=== PATIENT | female | born 1935 | race Caucasian/White ===

== ENCOUNTER 2017-07-13 07:24 | Day surgery (SDC) | payer MEDICARE, SELFPAY ==
[2017-07-13] VITALS (7 sets, daily range): BP systolic 101–148; BP diastolic 67–98; PULSE 70–87; RESP 16–20; TEMP 36.1–36.3; O2SAT 94–99; BMI 21.4
--- NOTE | 2017-07-13 09:04 | PCM.OPRPT ---
Problem List (1) Screening for intestinal cancer Status: Acute Report of Operation Date of Procedure: 07/13/17 Pre-Operative Diagnosis: Screening for intestinal cancer Post-Operative Diagnosis: Patent colorectal anastomosis. Minimal sigmoid diverticulosis Surgery/Procedure Performed:: Colonoscopy Description of Surgical Findings:: Timeout and informed consent was obtained. 81-year-old female was taken to the endoscopy suite. She was placed in a left lateral decubitus position. Throughout the procedure she received a total of 75 mg Demerol and 2.5 mg of Versed is intravenous sedation. Digital rectal exam performed. Normal anal tone. No mass lesions. Flexible colonoscope inserted the rectum and advanced through a somewhat tortuous left colon. The scope was then readily advanced through the transverse colon and isolate into the ascending colon and cecum. Bowel prep was good. There was still some liquid stool throughout the colon. This could be aspirated free. The cecum ileocecal valve was nicely inspected. The scope was carefully withdrawn from the ascending transverse descending and sigmoid colon. Some minimal diverticulosis of the sigmoid identified. No evidence of any acute inflammatory change. The patent colorectal anastomosis was noted and was noted to be widely patent. Some mild hemorrhoidal changes. No active bleeding. Excess fluid and air was aspirated free the procedure was completed with the patient tolerating it well. Impression Patent colorectal anastomosis. Minimal sigmoid diverticulosis. Some mild internal hemorrhoids. No evidence for active disease. Previous colonoscopy was 2006. Next colonoscopy for screening purposes in 10 years. Cc: Dr. Baldwin Medications were given at 0848. The procedure was initiated at 0850. The cecum was reached at 0854. The procedure was completed at 0900. Johnnie Diaz M.D., F.A.C.S. Type of Anesthesia:: IV Sedation
== END 2017-07-13 10:05 | disposition home or self-care (01) ==
LOC: EN 07:25 → AC 07:28
PROVIDERS: Family Provider Internal Medicine; PCP Internal Medicine; Visit Provider Surgery
PROC: 0DJD8ZZ Inspection of Lower Intestinal Tract, Via Natural or Artificial Opening Endoscopic (ICD-10-PCS; CPT 45378; principal; 2017-07-13 08:25)
DX: Z12.11 Encounter for screening for malignant neoplasm of colon (principal); K57.30 Diverticulosis of large intestine without perforation or abscess without bleeding; K43.2 Incisional hernia without obstruction or gangrene; K64.8 Other hemorrhoids; Z79.899 Other long term (current) drug therapy; Z78.0 Asymptomatic menopausal state; Z87.19 Personal history of other diseases of the digestive system; Z87.891 Personal history of nicotine dependence; Z90.49 Acquired absence of other specified parts of digestive tract; Z90.710 Acquired absence of both cervix and uterus
CPT/HCPCS: G0121; J7120

== ENCOUNTER 2017-07-25 12:14 | Inpatient (IN) | payer MEDICARE, SELFPAY ==
--- NOTE | 2017-07-24 10:04 | EKG12_ITS ---
Test Reason : PRE OP Blood Pressure : / mmHG Vent. Rate : 066 BPM Atrial Rate : 066 BPM P-R Int : 128 ms QRS Dur : 090 ms QT Int : 374 ms P-R-T Axes : 054 -38 -55 degrees QTc Int : 392 ms Normal sinus rhythm Left axis deviation ST & T wave abnormality, consider anterior ischemia Abnormal ECG Confirmed by BRODERICK MCCLOUD, ELINA ([id number]), design editor JOSHUA DAVE ([id number]) on 07/27/2017 1:05:53 PM Referred By: Johnnie Diaz Confirmed By:ELINA VILLAFANA MD
[2017-07-24 10:33] LABS: Hematocrit 45.3 % (37-47); Hemoglobin 15.7 g/dl (12.0-15.0); Mean Corp Hgb Conc 34.7 g/gl (32-36); Mean Corpuscular Volume 92.3 fL (81-99); Mean Platelet Vol. 9.6 fl (6.2-12.0); Platelet Count 243 K/mm3 (150-450); RBC Distribution Width SD 42.9 fl (35.1-43.9); Red Blood Count 4.91 M/mm3 (4.2-5.4); White Blood Count 8.8 K/mm3 (4.4-11.0)
[2017-07-24 10:36] LABS: Scan Indicated on CBC? Y/N NO
[2017-07-24 10:41] LABS: Prothrombin Time (Protime)PT. 12.7 SECONDS (11.7-14.9)
[2017-07-24 10:42] LABS: Partial Thromboplast Time 35.1 Seconds (24.1-36.2)
[2017-07-24 11:00] LABS: AST(SGOT) 22 U/L (15-37); Alanine Aminotransfer ALT/SGPT 30 U/L (13-56); Albumin, Serum 4.1 g/dL (3.2-5.0); Alkaline Phosphatase 99 U/L (45-117); Anion Gap 7 (5-15); BUN 12 mg/dL (7-18); BUN/Creat Ratio 13.9 RATIO (10-20); Bilirubin, Direct 0.13 mg/dL (0.00-0.30); Calcium,Total 9.2 mg/dL (8.5-10.1); Chloride 109 mmol/L (98-107); Creatinine, Serum 0.86 mg/dL (0.55-1.02); EST Glomerular Filtration Rate 67 mL/min (>60); Est Glom Filt Rate - Afr Amer 81 mL/min (>60); Globulin 3.5 g/dL (2.2-4.2); Glucose 86 mg/dL (74-106); Potassium 4.1 mmol/L (3.5-5.1); Protein, Total 7.6 g/dL (6.4-8.2); Sodium Level 141 mmol/L (136-145)
[2017-07-25] VITALS (10 sets, daily range): BP systolic 130–169; BP diastolic 78–95; PULSE 58–74; RESP 14–18; TEMP 35.9–37.2; O2SAT 95–100; BMI 20.8
--- NOTE | 2017-07-25 08:55 | HERN_PTH ---
PATIENT: STEPHEN PETER LOC: MS2 U#:[id number] AGE/SX: 81/F ROOM: [facility] [place] RE07/26/[address]: Dr. Johnnie Diaz MD : [id number] BED: 1 DIS: 07/27/2017 SPEC #: [id number] RECD: 07/25/17 13:00 STATUS: GIDEON JAE #: [id number] ELOINA: 07/25/17 08:[address]: Johnnie Diaz DEPT: SURGICAL PATHOLOGY RECD BY: Joel Jolley ENTERED: 07/25/17 13:31 SP TYPE: Hernia OTHR DR: Dr. Deena Baldwin MD Tissues: HERNIA Procedures: Surgery Specimen Level II HEADER OPERATION: Complex hybrid approach ventral/incisional hernia repair PRE-OP DIAGNOSIS: Incisional hernia without gangrene or obstruction TISSUE SUBMITTED: Hernia sac MICROSCOPIC DIAGNOSIS Incisional hernia sac, herniorrhaphy: Fibrosis and minimal chronic inflammation. AM:varinder 07/26/17 MICROSCOPIC DESCRIPTION Slides are reviewed. GROSS DESCRIPTION Received in fixative is one container labeled with the patient's name and designated hernia sac. The specimen consists of two pieces of fibroadipose tissue measuring in aggregate 6 x 6 x 2 cm. No mass lesion is identified. Supervisor [employer] sections are submitted in one cassette. / SJ:varinder 07/25/17 TC:5 CPT: 28074
[2017-07-25] MEDS: Cefazolin 2 GM in 0.9% Normal Saline 100 ML IV (09:39)
[2017-07-25] MEDS: Bupivacaine 0.25% 30 ML Vial ×2 (09:40→12:05)
--- NOTE | 2017-07-25 09:47 | DCINST_ITS ---
Discharge Diet: Light diet - advance as tolerated - if you have questions about your diet instructions, please talk to you doctor. Discharge Activity: May Not Drive - for 1 week or while taking narcotic pain medicine. May shower in (days): 1 Lifting Restrictions: 10 pounds Call your doctor if your incision/area has: Continuous Slow Oozing, Sudden Increased Bleeding, Increased Pain/ Swelling, Increased Redness, Foul Smelling Discharge Call your doctor if you observe: Fever of 101 or Higher Suture Line Care: Avoid Pulling/Pushing, Avoid Pinching/Bending Additional Dressing/Incision Instructions:: Change or remove dressing in 4 days. Leave steri-strips in place for 1 week. Allergies/Adverse Reactions: Allergies Latex, Natural Rubber Allergy (Mild, Verified 07/23/17 09:01) rash Medications to take at Discharge Alendronate Sodium 70 mg PO QWEEK 11/14/16 Calcium Carbonate [Calcium] 1,200 mg PO DAILY 11/14/16 Cholecalciferol (Vitamin D3) [Vitamin D3] 4,000 unit PO BID 11/14/16 [place]-3 Fatty Acids/Fish Oil [Fish Oil 1,000 mg Capsule] 1 ea PO DAILY 11/14/16 Multivitamin [Multiple Vitamins] 1 each PO DAILY 07/23/17 Hydrocodone Bitart/Apap 5-325 [[place] 5MG-325MG] 1 tablet PO Q6H PRN PRN 3 Days # 10 tablet 07/25/17 The following prescriptions were given: Hydrocodone Bitart/Apap 5-325 [[place] 5MG-325MG] 1 tablet PO Q6H PRN PRN 3 Days # 10 tablet PRN Reason: Pain Primary Care Physician: Deena Baldwin MD [Primary Care Provider] - Please Follow Up With: Johnnie Diaz MD - [phone] When: Call to make an appointment to be seen in about 10 days.
[2017-07-25] MEDS: 0.9% Saline Lock 10 ML Syringe IV (11:50)
[2017-07-25] MEDS: BUPIVACAINE LIPOSOME/PF 20 ML VIAL OPERA.SITE (11:50)
--- NOTE | 2017-07-25 12:06 | PCM.OPRPT ---
Problem List (1) Ventral incisional hernia Status: Acute Report of Operation Date of Procedure: 07/25/17 Pre-Operative Diagnosis: Suprapubic Pfannenstiel ventral incisional hernia Post-Operative Diagnosis: Same Surgery/Procedure Performed:: Hybrid open and laparoscopic supra pubic ventral incisional herniorrhaphy with mesh Description of Surgical Findings:: Timeout and informed consent was obtained. 81-year-old female was taken out from. She was placed on the table. She underwent general endotracheal intubation anesthesia. Ancef 2 g are given intravenous preoperatively. The abdomen sterilely prepped draped. Ioban draping was used. Transversely superior to the pubis I made a incision sharp and blunt dissection was used to identify the hernia sac was completely dissected free the fascia was diffusely weakened I dissected down and it got into the retrorectus plane. I was able to free the peritoneum and circumferentially dissected free. I elected then to convert to a laparoscopic approach. What remained of the weakened fascia was approximated transversely with [id number] sutures of 0 Nurolon. I placed a Elizondo catheter. Insufflated the abdomen. I placed to family reports some left upper quadrant one from the port in the right upper quadrant. There were adhesions of small bowel in the right lower quadrant to the anterior abdominal wall. Tediously and very carefully I dissected these free sharply. There was absolutely no bowel injury include complete release was achieved. I then incised the retroperitoneum superior to the defect area and carried that from the right to the left and then freed the peritoneum from the anterior abdominal wall I connected that with the previous dissection is performed suprapubically and blunt dissection to dissect the urinary bladder posteriorly. I now had very clean axis. I placed a ventral light ST mesh reference #[id number]. Lot number [id number]. Expiry date 09/17/2018. This was a basically rectangular piece of mesh. I shape that deformed to make it somewhat shorter and to place a tongue that would extend well behind the pubic bone. I then placed almost a central suture of 2-0 Prolene and then three-quarter sutures of 3-0 Prolene rolled the mesh out place it inside the abdomen I removed the Elizondo and closed the fascia with interrupted 0 Nurolon. I then placed the mesh so that it was retropubic with the tongue extending well up behind the pubic bone nicely stretched out. I then used a grainy needle secure that central time position it. I then secured the other 3 trans-fascial sutures. There appeared to be very good positional lie at that mesh. I secured the mesh into the pubic bone with secure strap and then circumferentially around the edge of the mesh and centrally to obliterate space. Excellent positioning was achieved. I then took the peritoneum in place that up over the inferior half of the mesh and secured that in place as well. I felt now that I had excellent coverage in the retro-rectus space retro-pubic with good extension of the mesh distally. The patient had had a very large hernia sac that I had to sharply dissect out the initiation of the case and it extended well over the pubic bone anteriorly. That sac was submitted a specimen. I then did a tap block laparoscopically using Exparel diluted 0 total 30 cc with saline. I also used 0.25% Marcaine. Throughout the procedure 40 cc of Marcaine and the 20 cc of Exparel. The tap block was performed under laparoscopic visualization. Finally trochars removed under visualization the abdomen was allowed to deflate CO2 the wounds were closed with interrupted 4 Monocryl subdermal stitches or running after 4-0 Monocryl. Steri-Strips Telfa OpSite dressings were applied. Sponge instrument and needle counts were reported to the surgeon be correct. Blood loss was minimal. She tolerated procedure well was taken to the recovery or insect condition without apparent complication. [place] that I had excellent coverage and support of her hernial defect. Specimens hernia sac. Drains none. Blood loss minimal. Johnnie Diaz M.D., F.A.C.S. international student counselor: None international student counselor: Joe Hazel Type of Anesthesia:: General Anesthesiologist: Uday Mitchell
--- NOTE | 2017-07-25 12:19 | OP.PCM_ITS ---
Problem List (1) Ventral incisional hernia Status: Acute Report of Operation Date of Procedure: 07/25/17 Pre-Operative Diagnosis: Suprapubic Pfannenstiel ventral incisional hernia Post-Operative Diagnosis: Same Surgery/Procedure Performed:: Hybrid open and laparoscopic supra pubic ventral incisional herniorrhaphy with mesh Description of Surgical Findings:: Timeout and informed consent was obtained. 81-year-old female was taken out from. She was placed on the table. She underwent general endotracheal intubation anesthesia. Ancef 2 g are given intravenous preoperatively. The abdomen sterilely prepped draped. Ioban draping was used. Transversely superior to the pubis I made a incision sharp and blunt dissection was used to identify the hernia sac was completely dissected free the fascia was diffusely weakened I dissected down and it got into the retrorectus plane. I was able to free the peritoneum and circumferentially dissected free. I elected then to convert to a laparoscopic approach. What remained of the weakened fascia was approximated transversely with [id number] sutures of 0 Nurolon. I placed a Elizondo catheter. Insufflated the abdomen. I placed to family reports some left upper quadrant one from the port in the right upper quadrant. There were adhesions of small bowel in the right lower quadrant to the anterior abdominal wall. Tediously and very carefully I dissected these free sharply. There was absolutely no bowel injury include complete release was achieved. I then incised the retroperitoneum superior to the defect area and carried that from the right to the left and then freed the peritoneum from the anterior abdominal wall I connected that with the previous dissection is performed suprapubically and blunt dissection to dissect the urinary bladder posteriorly. I now had very clean axis. I placed a ventral light ST mesh reference #[id number]. Lot number [id number]. Expiry date 09/17/2018. This was a basically rectangular piece of mesh. I shape that deformed to make it somewhat shorter and to place a tongue that would extend well behind the pubic bone. I then placed almost a central suture of 2-0 Prolene and then three-quarter sutures of 3-0 Prolene rolled the mesh out place it inside the abdomen I removed the Elizondo and closed the fascia with interrupted 0 Nurolon. I then placed the mesh so that it was retropubic with the tongue extending well up behind the pubic bone nicely stretched out. I then used a grainy needle secure that central time position it. I then secured the other 3 trans-fascial sutures. There appeared to be very good positional lie at that mesh. I secured the mesh into the pubic bone with secure strap and then circumferentially around the edge of the mesh and centrally to obliterate space. Excellent positioning was achieved. I then took the peritoneum in place that up over the inferior half of the mesh and secured that in place as well. I felt now that I had excellent coverage in the retro-rectus space retro-pubic with good extension of the mesh distally. The patient had had a very large hernia sac that I had to sharply dissect out the initiation of the case and it extended well over the pubic bone anteriorly. That sac was submitted a specimen. I then did a tap block laparoscopically using Exparel diluted 0 total 30 cc with saline. I also used 0.25% Marcaine. Throughout the procedure 40 cc of Marcaine and the 20 cc of Exparel. The tap block was performed under laparoscopic visualization. Finally trochars removed under visualization the abdomen was allowed to deflate CO2 the wounds were closed with interrupted 4 Monocryl subdermal stitches or running after 4-0 Monocryl. Steri-Strips Telfa OpSite dressings were applied. Sponge instrument and needle counts were reported to the surgeon be correct. Blood loss was minimal. She tolerated procedure well was taken to the recovery or insect condition without apparent complication. [place] that I had excellent coverage and support of her hernial defect. Specimens hernia sac. Drains none. Blood loss minimal. Johnnie Diaz M.D., F.A.C.S. graphic artist: None graphic artist: Joe Hazel Type of Anesthesia:: General Anesthesiologist: Uday Mitchell
--- NOTE | 2017-07-25 12:19 | PCM.PN.BLA ---
Progress Note Extensive dissection and bleeding risk. Will not use lovenox. Will use SCDs for DVT prophylaxis. Clary Diaz
[2017-07-25] MEDS: Lactated Ringers 1,000 ML 30 ML IV (14:11)
[2017-07-25] MEDS: HYDROcodone Bitartrate/Apap 5/325 Tablet PO ×2 (14:17→18:23)
[2017-07-25] MEDS: Ondansetron 4 MG/2 ML Vial IV (23:46)
[2017-07-26 01:50] VITALS: BP 149/94; PULSE 69; RESP 16; TEMP 37.2; O2SAT 95
--- NOTE | 2017-07-26 06:19 | PCM.PN.SRG ---
Patient Problems: Active and Suspected Problems (Last Updated 07/03/17 @ 14:43 by Sita Srivastava) Ventral incisional hernia (Acute) Subjective: Pt notes soreness Nausea last night with emesis Voiding well - Physical Exam General: Alert, Oriented x3, Cooperative, No apparent distress Lungs: Clear to auscultation Abdomen: Hypoactive Bowel Sounds, Distended, - - diffusely mildly tender Vital Signs Temp Pulse Resp BP Pulse Ox 98.9 F 69 16 149/94 H 95 07/26/17 01:50 07/26/17 01:50 07/26/17 01:50 07/26/17 01:50 07/26/17 01:50 Oxygen Delivery Method Room Air Weight: 121 lb 4.068 oz Body Mass Index (BMI) 20.8 Intake and Output for Last 24 Hours 07/24/17 07/25/17 07/26/17 23:59 23:59 23:59 Intake Total 3081 / 3081 199 / 199 Output Total 200 / 200 Balance 2881 / 2881 199 / 199 Medical Necessity - Tobacco Use Smoking Status: Former smoker Assessment/Plan Active and Suspected Problems (Last Updated 07/03/17 @ 14:43 by Sita Srivastava) Ventral incisional hernia (Acute) Pt has started ambulation No flatus. Distention noted Continue to observe Hold at clears
[2017-07-26] MEDS: HYDROcodone Bitartrate/Apap 5/325 Tablet PO ×3 (07:21→22:50)
[2017-07-26 07:24] VITALS: BP 141/86; PULSE 72; RESP 16; TEMP 36.9; O2SAT 95
--- NOTE | 2017-07-26 12:13 | NURSING ---
Patient passing flatus this shift and ambulating well in hallways. Pt has been up walking x5 this shift. Pain minimal-moderate, tolerating ambulation well. No active bleeding noted. Dressing remains dry and intact.
[2017-07-26 13:27] VITALS: BP 161/92; PULSE 65; RESP 16; TEMP 37.3; O2SAT 97
--- NOTE | 2017-07-26 13:54 | PCM.PN.BLA ---
Progress Note Small amount of flatus No nausea STill distended Sore with movement Continue care
[2017-07-26 22:35] VITALS: BP 154/100; PULSE 71; RESP 18; TEMP 37.1; O2SAT 95
[2017-07-26 23:00] VITALS: PULSE 71; RESP 18; O2SAT 95
[2017-07-27 03:43] VITALS: BP 128/85; PULSE 79; RESP 18; TEMP 37; O2SAT 97
[2017-07-27 03:50] VITALS: PULSE 79
--- NOTE | 2017-07-27 06:06 | PCM.PN.SRG ---
Patient Problems: Active and Suspected Problems (Last Updated 07/03/17 @ 14:43 by Sita Srivastava) Ventral incisional hernia (Acute) Subjective: Pt without complaint Positive flatus - Physical Exam Abdomen: Bowel Sounds Present, Soft, Non Tender Vital Signs Temp Pulse Resp BP Pulse Ox 98.6 F 79 18 128/85 H 97 07/27/17 03:43 07/27/17 03:50 07/27/17 03:43 07/27/17 03:43 07/27/17 03:43 Oxygen Delivery Method Room Air Weight: 121 lb 4.068 oz Body Mass Index (BMI) 20.8 Intake and Output for Last 24 Hours 07/25/17 07/26/17 07/27/17 23:59 23:59 23:59 Intake Total 3081 / 3081 1149 / 1149 250 / 250 Output Total 200 / 200 Balance 2881 / 2881 1149 / 1149 250 / 250 Medical Necessity - Tobacco Use Smoking Status: Former smoker Assessment/Plan Active and Suspected Problems (Last Updated 07/03/17 @ 14:43 by Sita Srivastava) Ventral incisional hernia (Acute) Ready for discharge
[2017-07-27] MEDS: Psyllium 1 PACKET PO (06:51)
[2017-07-27] MEDS: HYDROcodone Bitartrate/Apap 5/325 Tablet PO (08:57)
[2017-07-27 09:00] VITALS: BP 142/81; PULSE 66; RESP 16; TEMP 36.7; O2SAT 98
--- NOTE | 2017-07-27 09:21 | NURSING ---
patient tolerated regular diet, pain is well controlled and pt. up independently- steady on feet. Pt denies further needs and requested to be discharged. Same completed per physician order.
== END 2017-07-27 09:15 | disposition home or self-care (01) | DRG 337 ==
LOC: SDC 14:02
PROVIDERS: Admitting Provider Surgery; Family Provider Internal Medicine; PCP Internal Medicine; Visit Provider Surgery
PROC: 0WQF4ZZ Repair Abdominal Wall, Percutaneous Endoscopic Approach (ICD-10-PCS; principal; 2017-07-25 08:35)
DX: K43.2 Incisional hernia without obstruction or gangrene (principal); K66.0 Peritoneal adhesions (postprocedural) (postinfection); Z78.0 Asymptomatic menopausal state; Z79.899 Other long term (current) drug therapy; Z87.19 Personal history of other diseases of the digestive system; Z87.891 Personal history of nicotine dependence
CPT/HCPCS: 36415; 80048; 80076; 85027; 85610; 85730; 88302; 93005; 97802; J7120; A4216; C1781; J2405

== ENCOUNTER → 2018-08-06 13:26 | Outpatient (CLI) | payer MEDICARE, SELFPAY ==
[2017-07-25 13:51] VITALS: BMI 20.8
[2018-08-06 14:51] LABS: Hematocrit 42.4 % (37-47); Hemoglobin 14.6 g/dl (12.0-15.0); Mean Corp Hgb Conc 34.4 g/gl (32-36); Mean Platelet Vol. 9.4 fl (6.2-12.0); Platelet Count 224 K/mm3 (150-450); RBC Distribution Width CV 13.5 % (11.6-14.6); RBC Distribution Width SD 45.2 fl (35.1-43.9); Red Blood Count 4.56 M/mm3 (4.2-5.4); Scan Indicated on CBC? Y/N NO; White Blood Count 10.5 K/mm3 (4.4-11.0)
[2018-08-06 15:19] LABS: ALB/GLOB Ratio 1.2 RATIO (0.9-2.4); AST(SGOT) 20 U/L (15-37); Alanine Aminotransfer ALT/SGPT 31 U/L (13-56); Albumin, Serum 3.8 g/dL (3.2-5.0); Alkaline Phosphatase 94 U/L (45-117); Anion Gap 5 (5-15); BUN 11 mg/dL (7-18); BUN/Creat Ratio 12.3 RATIO (10-20); Calcium,Total 9.1 mg/dL (8.5-10.1); Chloride 107 mmol/L (98-107); EST Glomerular Filtration Rate 64 mL/min (>60); Est Glom Filt Rate - Afr Amer 78 mL/min (>60); Globulin 3.3 g/dL (2.2-4.2); Glucose 80 mg/dL (74-106); Potassium 3.7 mmol/L (3.5-5.1); Protein, Total 7.1 g/dL (6.4-8.2); Sodium Level 140 mmol/L (136-145); Thyroid Stim Hormone (TSH) 0.82 uIU/mL (0.358-3.74)
[2018-08-06 15:20] LABS: Vitamin D,25 Hydroxy 46.6 ng/mL (29.95-100.01)
== END ==
PROVIDERS: Family Provider Internal Medicine; PCP Internal Medicine; Referring Provider Internal Medicine; Visit Provider Internal Medicine
DX: E55.9 Vitamin D deficiency, unspecified (principal); M81.0 Age-related osteoporosis without current pathological fracture; I10 Essential (primary) hypertension
CPT/HCPCS: 36415; 80053; 82306; 84443; 85027

== ENCOUNTER 2018-10-14 07:58 | Inpatient (IN) | payer MEDICARE, SELFPAY ==
[2018-10-14] VITALS (12 sets, daily range): BP systolic 83–120; BP diastolic 41–72; PULSE 40–98; RESP 15–22; TEMP 36.2–37.2; O2SAT 86–95; BMI 19.2; BMI 20.1
--- NOTE | 2018-10-14 08:37 | EKG12_ITS ---
Test Reason : ABD PAIN Blood Pressure : / mmHG Vent. Rate : 079 BPM Atrial Rate : 079 BPM P-R Int : 130 ms QRS Dur : 092 ms QT Int : 380 ms P-R-T Axes : 050 -47 -73 degrees QTc Int : 435 ms Sinus rhythm with marked sinus arrhythmia Left anterior fascicular block ST & T wave abnormality, consider inferior ischemia ST & T wave abnormality, consider anterolateral ischemia Abnormal ECG Confirmed by BRODERICK MCCLOUD, ELINA ([id number]), assistant editor JOSE SHEPARD ([id number]) on 10/15/2018 7:41:10 AM Referred By: YOSELYN Confirmed By:ELINA VILLAFANA MD
[2018-10-14] MEDS: Ondansetron 4 MG/2 ML Vial IV ×3 (09:04→20:42)
[2018-10-14] MEDS: 0.9% Normal Saline 1,000 ML 1000 ML IV ×2 (09:04→10:53)
[2018-10-14 09:19] LABS: AST(SGOT) 33 U/L (15-37); Alanine Aminotransfer ALT/SGPT 52 U/L (13-56); Albumin, Serum 3.5 g/dL (3.2-5.0); Alkaline Phosphatase 69 U/L (45-117); Anion Gap 12 (5-15); BUN 82 mg/dL (7-18); BUN/Creat Ratio 19.2 RATIO (10-20); Bilirubin, Direct 0.23 mg/dL (0.00-0.30); Calcium,Total 9.4 mg/dL (8.5-10.1); Chloride 86 mmol/L (98-107); Creatinine, Serum 4.28 mg/dL (0.55-1.02); EST Glomerular Filtration Rate 11 mL/min (>60); Est Glom Filt Rate - Afr Amer 13 mL/min (>60); Estimated Creatinine Clearance 8.41 ml/min; Glucose 127 mg/dL (74-106); Lipase 219 U/L (73-393); Potassium 3.2 mmol/L (3.5-5.1); Protein, Total 6.5 g/dL (6.4-8.2); Sodium Level 126 mmol/L (136-145)
[2018-10-14 09:22] LABS: Red Blood Cells-Urine 0 SEEN /hpf (0-5)
[2018-10-14 09:24] LABS: Absolute Lymphocyte Count 1.22 X10^3/ul (0.83-4.51); Absolute Neutrophil Count 6.6 X10^3/uL (2.0-7.7); Basophil# 0.01 X10^3/uL; Basophil% 0.1 % (0-1); Eosinophil# 0.01 X10^3/uL; Eosinophils% 0.1 % (0-5); Hematocrit 43.4 % (37-47); Lymphocyte # 1.22 X10^3/ul (4.0); Lymphocyte % 13.3 % (19-41); Mean Corpuscular Volume 87.5 fL (81-99); Mean Platelet Vol. 9.6 fl (6.2-12.0); Monocyte# 1.33 X10^3/uL; Monocyte% 14.5 % (0-10); Neutrophil % 71.7 % (47-70); Platelet Count 215 K/mm3 (150-450); RBC Distribution Width CV 12.9 % (11.6-14.6); RBC Distribution Width SD 40.8 fl (35.1-43.9); Red Blood Count 4.96 M/mm3 (4.2-5.4); White Blood Count 9.2 K/mm3 (4.4-11.0)
[2018-10-14 09:24] LABS: Color, Urine Yellow (Yellow); Glucose, Dipstick Normal (Normal); Ketone-Dipstick Negative (Negative); Leukocyte Esterase-Dipstick 100 /ul (Negative); Nitrite-Dipstick Negative (Negative); Occult Blood-Urine 10 /ul (Negative); Protein-Dipstick 100 mg/dl (Negative); Specific Gravity, Urine 1.025 (1.002-1.030); Urine Clarity Sl. Cloudy (Clear); Urine Urobilinogen Normal (Normal)
[2018-10-14 09:25] LABS: Urine Bilirubin Dipstick 6 mg/dL (Negative)
[2018-10-14 09:26] LABS: Hemoglobin 15.4 g/dl (12.0-15.0)
[2018-10-14 09:27] LABS: Mean Corp Hgb Conc 35.5 g/gl (32-36); POSITIVE COUNT NO; POSITIVE DIFFERENTIAL NO; POSITIVE MORPHOLOGY NO
[2018-10-14 09:27] LABS: Bacteria 1+ /hpf (None Seen); Fine Granular Cast- Urine 0-5 SEEN /lpf (0-5); Hyaline Cast 0-5 SEEN /lpf (0-5); Mucous, Urine RARE /hpf (<or=2+); Squamous Epithelial Cells - UA 0-5 SEEN /hpf (5-10); White Blood Cells 0-5 SEEN /hpf (0-5)
[2018-10-14 09:35] LABS: Lactic Acid 1.6 mmol/L (0.4-2.0)
--- NOTE | 2018-10-14 09:41 | CT_ITS ---
STUDY: CT ABDOMEN AND PELVIS WITH CONTRAST REASON FOR EXAM: Female, 82 years old. RADIATION DOSAGE (If Supplied By Facility): CTDIvol = ( 6.22 ) mGy, DLP = ( 264.04 ) mGycm TECHNIQUE: Transaxial images were obtained from the dome of the diaphragm to the symphysis pubis without oral contrast. 15mL Oral Gastrografin was administered. Sagittal and coronal images were reconstructed. Individualized dose optimization techniques were used for this CT. COMPARISON: None. FINDINGS: There is moderate dilatation of small bowel with contrast and fluid consistent with mechanical bowel obstruction there is stool in the cecum and part of the descending colon there is minimal stool seen within the rectum Stomach is filled with contrast the spleen and liver are within normal limits except to note tiny calcification within the spleen both kidneys are normal in size, shape and position small cyst noted in the upper pole of the right kidney there is fullness of the renal pelvis is understood that the patient had collect partial colectomy There are hypertrophic changes involving the lumbar spine with scoliosis convexity to the right side. Significant narrowing of the intervertebral discs noted with osteophyte formation and vacuum phenomena. Compression fracture noted of the body of L1. CT/Abdomen/Pel W ORAL Cont Only IMPRESSION: Markedly distended small bowel consistent with mechanical small bowel obstruction. No obvious transitional zone. Electronically Signed: Adelita Davalos, at 12:13 EDT Tel , Service support ,
--- NOTE | 2018-10-14 12:47 | ED.VISSUMM ---
- ER Visit Summary Date of Service: 10/14/18 Chief Complaint: Acute abdominal pain History of Present Illness: The patient is a 82 F past medical history of hypertension prior appendectomy and hysterectomy. Also partial colectomy need to diverticulitis. No prior hernia repair. Patient states that she is abdominal pain and nausea vomiting since . Was seen in urgent care told she had a UTI was placed on Bactrim for 3 days. States she actually is feeling worse. She denies any fever. Physical Examination: Vital signs initial blood pressure 83/41. Temperature 97.1. Pulse ox 86% on room air. Consistent with hypoxia. She is actually tolerating a low pressure well. Is awake alert talking. HEENT exam dry mucous memories. Neck nontender no JVD. Lungs clear to auscultation bilaterally. Heart regular rhythm rate about 70 no murmur. Abdomen is distended diffusely tender. No peritoneal signs. Consistent with a small bowel obstruction. Decreased bowel sounds. No obvious hernias or masses. No pulsatile mass. Moving all 4 extremities. Skin unremarkable. Neurologically he is awake and alert with no focal motor deficits. Test Results: EKG shows a sinus rhythm rate of 79 with chronic changes unchanged from prior. White count of 9. Hemoglobin 15. Electrolytes show sodium 126. Potassium 3.2. Gap of 12. BUN 82 creatinine 4.28 previously her creatinine was 0.9 she is acute kidney injury acute renal failure. Liver enzymes lipase normal. UA normal. Lactate 1.6. CT abdomen pelvis done with oral but no IV contrast due to her kidney function shows a small bowel obstruction. This is consistent with her clinical presentation. Emergency Department Course and Treatment: Patient treated with IV fluids. Currently she is on her second liter and is been written for third. She is been given Zofran x2. She was offered but did not want any morphine. Possible repeat exams likely she looks well. Her blood pressure is improving. Again does not want anything for pain. Treatment Plan: Patient had surgery by Dr. Johnnie Diaz before. She want to stay with his group. Have already discussed her care with Dr. Carlos Caldwell. At this time we will hold off on an NG. I have the hospitalist on page for admission. Disposition: Admission Impression: Acute small bowel obstruction Acute nausea and vomiting Acute severe dehydration Acute kidney injury with acute renal failure. This note was generated with [employer] dictation software. It may contain incorrect words, spelling, and punctuation that were not noted in review of the chart prior to signing ED Disposition - Plan for ED Patient: Referrals: Deena Baldwin MD [Primary Care Provider] -
--- NOTE | 2018-10-14 12:57 | RAD_ITS ---
STUDY: X-RAY CHEST REASON FOR EXAM: Female, 82 years old. TECHNIQUE: 1 view COMPARISON: November 14, 2016 FINDINGS: The lungs are clear and expanded. There is no demonstrated pleural abnormality. Normal size heart. Normal mediastinum and coretta. Normal visualized pulmonary arteries. There is tortuosity of the thoracic aorta. Mild scoliosis of the lower thoracolumbar junction convexity to the left. The bony thorax is intact. Mild osteoarthritis of the shoulder joints There is no demonstrated abnormality of the visualized soft tissue structures of the upper abdomen. RAD/Chest 1 View (Portable) IMPRESSION: Negative chest for active disease unchanged November 14, 2016 Electronically Signed: Adelita Davalos, at 14:04 EDT Tel , Service support ,
--- NOTE | 2018-10-14 13:13 | HP.PCM_ITS ---
Problem List (1) SBO (small bowel obstruction) Status: Acute (2) ANGELES (acute kidney injury) Status: Acute (3) Hypokalemia Status: Acute (4) Hyponatremia Status: Acute (5) Hypotension Status: Acute Qualifiers: Hypotension type: hypotension due to hypovolemia Qualified Code(s): I95.89 - Other hypotension; E86.1 - Hypovolemia History of Present Illness Date of Admission: 10/14/18 Chief Complaint: vomiting The patient is a 82 year old F who since last , has been having persistent vomiting. Patient has been able to eat or drink very little during this time and just had refractory vomiting. She denies any abdominal pain, though does endorse that she is having abdominal distention. Went to an urgent care and was diagnosed with a urinary tract infection and received Bactrim but was not feeling any better. Presented to the emergency room today and was found to have a partial small bowel obstruction on CAT scan. Additionally, patient was found to have acute kidney injury with a creatinine of 4.28, with a baseline of around 1. Patient did receive IV fluids. Patient was hypotensive initially but that has soft but resolved with IV fluids. Patient has never had a bowel obstruction before though has had several abdominal surgeries. 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 HTN (hypertension) I10 Allergies Latex, Natural Rubber Allergy (Mild, Verified 10/14/18 07:58) rash Home Medications: Ambulatory Orders Medication Instructions Recorded Alendronate Sodium 70 mg PO QWEEK 11/14/16 Calcium Carbonate [Calcium] 1,200 mg PO DAILY 11/14/16 Cholecalciferol (Vitamin D3) 4,000 unit PO BID 11/14/16 [Vitamin D3] [place]-3 Fatty Acids/Fish Oil [Fish 1 ea PO DAILY 11/14/16 Oil 1,000 mg Capsule] Multivitamin [Multiple Vitamins] 1 ea PO DAILY 07/23/17 Lisinopril [Zestril] 10 mg PO DAILY 10/14/18 Smz/Tmp Ds [Bactrim Ds] 1 tab PO BID 10/14/18 Surgical History: Surgical History (Last Reviewed 10/14/18 @ 13:15 by Hong Farley DO) S/P repair of ventral hernia (Acute) Z98.890, Z87.19 07/25/17 S/P hysterectomy (Acute) Z90.710 S/P colectomy (Acute) Z90.49 S/P colonoscopy (Acute) Z98.890 Psychiatric History: No pertinent psych hx Lives: Spouse/ Significant Other Smoking Status: Never smoker Tobacco Use: Non-smoker Alcohol: Rare Drugs: None - *Family History Paternal Family History: Family History (Last Updated 10/14/18 @ 13:16 by Hong Farley DO) Father Diabetes Heart disease Hypertension Other Parkinson disease Review of Systems Constitutional: Denies: Anorexia, Chills, Fever, Night Sweats Eyes: Denies: Blurred vision, Double vision HEENT: Denies: Head Aches, Sinus Congestion, Sinus Drainage Cardiovascular: Denies: Chest Pain, Palpitations Respiratory: Denies: Cough, Shortness of breath at rest, Sputum production Gastrointestinal: Reports: Constipation, Nausea, Vomiting. Denies: Abdominal Pain, Diarrhea Genitourinary: Denies: Dysuria Musculoskeletal: Denies: Joint Pain, Joint Tenderness Skin: Denies: Rash, Wounds Neurological: Denies: Numbness, Tingling, Focal weakness Psychiatric: Denies: Anxiety, Depression Endocrine: Reports: Heat/ Cold Intolerance. Denies: Change in Body Habitus Hematologic/ Lymphatic: Denies: Easy Bruising, Easy Bleeding, Hx of blood clot Comment: Noted dizziness when she stood up today. A 10 point review of systems were negative except as mentioned in the history of present illness and the other review of systems. VTE Information - Inpt Only VTE Present on Admission: No VTE Pharm Prophylaxis ordered?: Yes Patient Problems: Active and Suspected Problems (Last Reviewed 09/03/17 @ 12:59 by Divina Orona) SBO (small bowel obstruction) (Acute) ANGELES (acute kidney injury) (Acute) Hypokalemia (Acute) Hyponatremia (Acute) Hypotension (Acute) - Physical Exam General: Alert, Cooperative, No apparent distress HEENT: Atraumatic, Normocephalic, - - No icterus Oral: Moist Mucosa, No Gingival or Mucosal Lesions/ Ulcerations Neck: No Nodes, Thyroid Normal Size and Texture Lungs: Clear to auscultation, Normal air movement, No rhonchi, No wheeze, No rales Cardiovascular: Regular rate, Regular Rhythm, Normal S1, Normal S2, No murmurs Abdomen: Soft, No Hepato-splenomegaly, Passing Flatus, Tender - Slight, no rebound tenderness, - - High-pitched bowel sounds. Abdominal distention. Extremities: No edema, No Calf Tenderness Skin: No rashes, No breakdown Musculoskeletal: No Tenderness to Palpation of Joints or Extremities, No Muscle Wasting Neurological: Deep Tendon Reflexes 2+/4 and Symmetrical, Neuro grossly intact, - - No clonus Psych/Mental Status: Normal Affect, Appropriate Vital Signs Temp Pulse Resp BP Pulse Ox 36.2 C L 75 16 119/68 93 10/14/18 07:58 10/14/18 12:57 10/14/18 12:57 10/14/18 13:10 10/14/18 12:57 Oxygen Delivery Method Room Air Weight: 50.802 kg Body Mass Index (BMI) 19.2 Laboratory Tests Past 24 Hrs 10/14/18 10/14/18 10/14/18 09:00 09:00 09:00 WBC 9.2 RBC 4.96 Hgb 15.4 H Hct 43.4 MCV 87.5 MCH 31.0 MCHC 35.5 RDW 12.9 RDW Differential 40.8 Plt Count 215 MPV 9.6 Immature Gran % (Auto) 0.300 Neut % (Auto) 71.7 H Lymph % (Auto) 13.3 L [place] % (Auto) 14.5 H Eos % (Auto) 0.1 Baso % (Auto) 0.1 Absolute Neuts (auto) 6.6 Absolute Lymphs (auto) 1.22 Total Counted Not Reportable Sodium 126 L Potassium 3.2 L Chloride 86 L Carbon Dioxide 28.0 Anion Gap 12 BUN 82 H Creatinine 4.28 H Estim Creat Clear Calc 8.41 Est GFR (MDRD) Af Amer 13 L Est GFR (MDRD) Non-Af 11 L BUN/Creatinine Ratio 19.2 Glucose 127 H Lactic Acid 1.6 Calcium 9.4 Total Bilirubin 0.80 Direct Bilirubin 0.23 AST 33 ALT 52 Alkaline Phosphatase 69 Total Protein 6.5 Albumin 3.5 Globulin 3.0 Lipase 219 Urine Color Urine Clarity Urine pH Ur Specific [place] Urine Protein Urine Glucose (UA) Urine Ketones Urine Occult Blood Urine Nitrite Urine Bilirubin Urine Urobilinogen Ur Leukocyte Esterase Urine RBC Urine WBC Ur Squamous Epith Cells Urine Bacteria Hyaline Casts Fine Granular Casts Urine Mucus 10/14/18 09:15 WBC RBC Hgb Hct MCV MCH MCHC RDW RDW Differential Plt Count MPV Immature Gran % (Auto) Neut % (Auto) Lymph % (Auto) [place] % (Auto) Eos % (Auto) Baso % (Auto) Absolute Neuts (auto) Absolute Lymphs (auto) Total Counted Sodium Potassium Chloride Carbon Dioxide Anion Gap BUN Creatinine Estim Creat Clear Calc Est GFR (MDRD) Af Amer Est GFR (MDRD) Non-Af BUN/Creatinine Ratio Glucose Lactic Acid Calcium Total Bilirubin Direct Bilirubin AST ALT Alkaline Phosphatase Total Protein Albumin Globulin Lipase Urine Color Yellow Urine Clarity Sl. Cloudy Urine pH 5.0 Ur Specific [place] 1.025 Urine Protein 100 H Urine Glucose (UA) Normal Urine Ketones Negative Urine Occult Blood 10 H Urine Nitrite Negative Urine Bilirubin 6 H Urine Urobilinogen Normal Ur Leukocyte Esterase 100 H Urine RBC 0 SEEN Urine WBC 0-5 SEEN Ur Squamous Epith Cells 0-5 SEEN Urine Bacteria 1+ Hyaline Casts 0-5 SEEN Fine Granular Casts 0-5 SEEN Urine Mucus RARE Clinical Impression(s) from Imaging Studies Abdomen CT 10/14/18 09:41 IMPRESSION: Markedly distended small bowel consistent with mechanical small bowel obstruction. No obvious transitional zone. Electronically Signed: Irlandabeverley Susannah, at 12:13 EDT Tel , Service support , Assessment/Plan All Active Problems (Last Reviewed 09/03/17 @ 12:59 by Divina Orona) SBO (small bowel obstruction) (Acute) ANGELES (acute kidney injury) (Acute) Hypokalemia (Acute) Hyponatremia (Acute) Hypotension (Acute) S/P repair of ventral hernia (Acute) Screening for intestinal cancer (Acute) Ventral incisional hernia (Acute) S/P hysterectomy (Acute) S/P colectomy (Acute) S/P colonoscopy (Acute) History of diverticulosis (Acute) 1. Partial small bowel obstruction * Likely the etiology of her persistent vomiting. * Supportive management, including IV fluids, antiemetics and pain medications. * Hold off on nasogastric tube at this time condition worsens. * Discussed with patient that plan for treatment at this point time is going to be conservative. Surgery will be on consultation, but no imminent plans for any surgery and explained to her and her family, the surgery is a last resort. * Patient was diagnosed with a urinary tract infection in outside facility. Urinalysis here was negative. I do not have the results of the urinalysis at the outside facility. I will hold the Bactrim and monitor. 2. Acute kidney injury * Likely prerenal due to dehydration from her persistent vomiting and no adequate oral intake * Creatinine 4.28, with baseline of 0.9 from August 06, 2018 * IV fluids * And follow-up labs in the morning 3. Hypokalemia * Likely due to GI losses from her persistent vomiting * Replace potassium with IV bolus plus normal saline with 20 mEq of potassium chloride * Check magnesium * Monitor 4. Hyponatremia * Likely due to dehydration and hypovolemia * IV fluids * Reevaluate in the morning 5. VTE prophylaxis: Moderate risk. Patient will be on Lovenox. 6. Advanced care planning: Addressed with the patient. Addressed CPR, intubation and PEG tubes. Patient states that she would want to have CPR and intubation short-term unsure about a PEG tube in the event if you would ever have a stroke that prohibited safe swallowing. Encouraged her to discuss further with her family at a later point to make sure that it was on the same pa ge. Explained that she does not need to come to decision during this hospitalization or in the near future but best to have this conversation with family. Code Visit Inpatient E&M: 70805 Init Hosp L3
--- NOTE | 2018-10-14 14:31 | PCM.CONS.GEN ---
Problem List (1) SBO (small bowel obstruction) Status: Acute Reason for Consult Date of Consultation: 10/14/18 Reason for Consultation: Small bowel obstruction History of Present Illness: The patient is a 82 year old F who presented with 5 day history of nausea and vomiting. Patient noted on Sunday she had vomiting every several hours with associated sour taste and nausea. She also noted lack of appetite. Patient stated her symptoms continued and on Sunday she called her PCP who did not have any openings to be seen. Patient went to an urgent care in [place] who treated her for a UTI. She noted the antibiotic she was given she needed to eat and drink prior to taking it. Patient noted she vomited 3 times after taking the antibiotic. She noted on Sunday she had vomited busch/brownish liquid which was different from the emesis she had earlier. Patient was brought to the ED due to continued symptoms. CT scan of the abdomen demonstrated markedly distended small bowel consistent with small bowel obstruction. No transitional point noted. Patient states she has not had any abdominal pain associated with the nausea and vomiting. She notes cramping due to the vomiting. Patient notes her last normal bowel movement was on Sunday. Patient states she has not been passing flatus. Previous abdominal surgeries include total hysterectomy, laparoscopic colectomy, and supra-pubic hernia repair. 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 HTN (hypertension) I10 Allergies Latex, Natural Rubber Allergy (Mild, Verified 10/14/18 07:58) rash Home Medications: Ambulatory Orders Medication Instructions Recorded Alendronate Sodium 70 mg PO QWEEK 11/14/16 Calcium Carbonate [Calcium] 1,200 mg PO DAILY 11/14/16 Cholecalciferol (Vitamin D3) 4,000 unit PO DAILY 11/14/16 [Vitamin D3] [place]-3 Fatty Acids/Fish Oil [Fish 1 ea PO DAILY 11/14/16 Oil 1,000 mg Capsule] Multivitamin [Multiple Vitamins] 1 ea PO DAILY 07/23/17 Lisinopril [Zestril] 10 mg PO DAILY 10/14/18 Smz/Tmp Ds [Bactrim Ds] 1 tab PO BID 10/14/18 Surgical History: Surgical History (Last Reviewed 10/14/18 @ 15:07 by Roz Cope PA-C) S/P repair of ventral hernia (Acute) Z98.890, Z87.19 07/25/17 S/P hysterectomy (Acute) Z90.710 1982 S/P colectomy (Acute) Z90.49 07/06/2006 S/P colonoscopy (Acute) Z98.890 07/05/2006 Psychiatric History: No pertinent psych hx 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 Denies: Cough, Shortness of breath at rest, Sputum production Gastrointestinal: Reports: Constipation, Nausea, Vomiting. Denies: Hematemesis, Hematochezia Genitourinary: Denies: Dysuria Musculoskeletal: Denies: Joint Pain, Joint Tenderness Skin: Denies: Rash, Wounds Neurological: Denies: Numbness, Tingling, Focal weakness Psychiatric: Denies: Anxiety, Depression, Homicidal Ideations, Suicidal Ideations Hematologic/ Lymphatic: Denies: Easy Bruising, Easy Bleeding Patient Problems: Active and Suspected Problems (Last Updated 10/14/18 @ 13:15 by Hong Farley DO) SBO (small bowel obstruction) (Acute) ANGELES (acute kidney injury) (Acute) Hypokalemia (Acute) Hyponatremia (Acute) Hypotension (Acute) - Physical Exam General: Alert, Oriented x3, Cooperative HEENT: Atraumatic, PERRLA, EOMI, Normocephalic Neck: Supple, No JVD, Negative Carotid Bruits Lungs: Clear to auscultation, Normal air movement Cardiovascular: Regular rate, No murmurs Abdomen: Non Tender, Hypoactive Bowel Sounds - High-pitched bowel sounds, Distended Extremities: No edema, Capillary Refill Less than 3 Seconds Skin: No rashes, No breakdown Musculoskeletal: No Tenderness to Palpation of Joints or Extremities Neurological: Neuro grossly intact Psych/Mental Status: Normal Affect, Appropriate Vital Signs Temp Pulse Resp BP Pulse Ox 97.8 F 74 15 97/58 L 95 10/14/18 13:28 10/14/18 13:28 10/14/18 13:28 10/14/18 13:28 10/14/18 13:28 Oxygen Delivery Method Room Air Weight: 117 lb 1.047 oz Body Mass Index (BMI) 20.0 Laboratory Tests Past 24 Hrs 10/14/18 10/14/18 10/14/18 09:00 09:00 09:00 WBC 9.2 RBC 4.96 Hgb 15.4 H Hct 43.4 MCV 87.5 MCH 31.0 MCHC 35.5 RDW 12.9 RDW Differential 40.8 Plt Count 215 MPV 9.6 Immature Gran % (Auto) 0.300 Neut % (Auto) 71.7 H Lymph % (Auto) 13.3 L [place] % (Auto) 14.5 H Eos % (Auto) 0.1 Baso % (Auto) 0.1 Absolute Neuts (auto) 6.6 Absolute Lymphs (auto) 1.22 Total Counted Not Reportable Sodium 126 L Potassium 3.2 L Chloride 86 L Carbon Dioxide 28.0 Anion Gap 12 BUN 82 H Creatinine 4.28 H Estim Creat Clear Calc 8.41 Est GFR (MDRD) Af Amer 13 L Est GFR (MDRD) Non-Af 11 L BUN/Creatinine Ratio 19.2 Glucose 127 H Lactic Acid 1.6 Calcium 9.4 Total Bilirubin 0.80 Direct Bilirubin 0.23 AST 33 ALT 52 Alkaline Phosphatase 69 Total Protein 6.5 Albumin 3.5 Globulin 3.0 Lipase 219 Urine Color Urine Clarity Urine pH Ur Specific [place] Urine Protein Urine Glucose (UA) Urine Ketones Urine Occult Blood Urine Nitrite Urine Bilirubin Urine Urobilinogen Ur Leukocyte Esterase Urine RBC Urine WBC Ur Squamous Epith Cells Urine Bacteria Hyaline Casts Fine Granular Casts Urine Mucus 10/14/18 09:15 WBC RBC Hgb Hct MCV MCH MCHC RDW RDW Differential Plt Count MPV Immature Gran % (Auto) Neut % (Auto) Lymph % (Auto) [place] % (Auto) Eos % (Auto) Baso % (Auto) Absolute Neuts (auto) Absolute Lymphs (auto) Total Counted Sodium Potassium Chloride Carbon Dioxide Anion Gap BUN Creatinine Estim Creat Clear Calc Est GFR (MDRD) Af Amer Est GFR (MDRD) Non-Af BUN/Creatinine Ratio Glucose Lactic Acid Calcium Total Bilirubin Direct Bilirubin AST ALT Alkaline Phosphatase Total Protein Albumin Globulin Lipase Urine Color Yellow Urine Clarity Sl. Cloudy Urine pH 5.0 Ur Specific [place] 1.025 Urine Protein 100 H Urine Glucose (UA) Normal Urine Ketones Negative Urine Occult Blood 10 H Urine Nitrite Negative Urine Bilirubin 6 H Urine Urobilinogen Normal Ur Leukocyte Esterase 100 H Urine RBC 0 SEEN Urine WBC 0-5 SEEN Ur Squamous Epith Cells 0-5 SEEN Urine Bacteria 1+ Hyaline Casts 0-5 SEEN Fine Granular Casts 0-5 SEEN Urine Mucus RARE Assessment/Plan All Active Problems (Last Updated 10/14/18 @ 13:15 by Hong Farley DO) Screening for intestinal cancer (Acute) Ventral incisional hernia (Acute) SBO (small bowel obstruction) (Acute) ANGELES (acute kidney injury) (Acute) Hypokalemia (Acute) Hyponatremia (Acute) Hypotension (Acute) S/P repair of ventral hernia (Acute) S/P hysterectomy (Acute) S/P colectomy (Acute) S/P colonoscopy (Acute) History of diverticulosis (Acute) I have been consulted with Dr. Caldwell Impression: Small bowel obstruction Plan: I have discussed this patient in conjunction with Dr. Caldwell. We plan to proceed with conservative measures IV hydration, sips and chips, and bowel rest. We will avoid NG tube at this point however it was discussed with the patient that if she starts to have vomiting again, NG tube may need to be initiated. It was also discussed with the patient that if her symptoms were to progress she may need an exploratory procedure. Patient and her family have had the opportunity to ask and have questions answered. Patient verbally understands and agrees with the plan. A KUB will be ordered for tomorrow morning. Thank you for allowing us to participate in this patient's care. Code Visit Office Visits / Consults: 11300 IP Consult L3
--- NOTE | 2018-10-14 14:50 | CASEMGMT ---
ABHISHEK LYNN assessment: Face to Face with patient for initial transition planning/care coordination assessment. ABHISHEK LYNN introduced self and role at [facility], pt voices understanding and consents to assessment at this time. Pt is lying in bed in no distress at this time. Pt is A/Ox4 at this time and answers all questions appropriately at this time. Care providers, pharmacy, and demographics verified/updated at this time. PCP: Denny Specialists: marlyn Davis Preferred Pharmacy: [facility] Insurance: [employer] Prescription Benefit: [employer] Living Will/HPOA: Pt has HPOA and it is on file at [facility] at this time. Pt is unsure whether she has LW at home or not. Pt states that her , Aleksandar Leong, is HPOA. LNOK: Aleksandar Leong, ; Ayanna Sin, daughter; Willie Leong, son Living Arrangements: Pt states lives with in 2 story home and states no concerns at home at this time. Pt states is independent at home with ADL's. Transportation: Pt drives self and states no transportation concerns at this time. DME/HHC: Pt states no current DME or need for any at this time. Pt states no hx of HHC or SNF in the past. Pt states no concerns with going home at time of discharge. Pt is retired. Pt states does not smoke but does drink 'a couple gin/tonics every night.' Pt states has not had any drinks in several days d/t vomiting/abd pain. Pt states no further concerns/needs at this time. Advised pt to ask for CM if any further questions/concerns/needs arise, voices understanding. Pt Goal: Home Plan[place] ABHISHEK LYNN
[2018-10-14] MEDS: Potassium Chloride 10mEq/100mL 10 MEQ/100 ML IV.SOLN. 100 MEQ IV BOLUS ×2 (15:13→18:31)
--- NOTE | 2018-10-14 15:28 | RAD_ITS ---
STUDY: X-RAY - ABDOMEN/PELVIS REASON FOR EXAM: Female, 82 years old. Abdominal pain and distention. Small bowel obstruction. TECHNIQUE: AP supine and upright views of the abdomen and pelvis. COMPARISON: CT of the abdomen and pelvis, October 14, 2018 (1143 hours). FINDINGS: Normal visualized lung bases. There are multiple distended air-filled loops of small bowel central abdomen with air-fluid levels. There is a paucity of colonic air. There is no demonstrated free abdominal air. The liver, spleen and kidneys are poorly visualized due to overall increased density in the overlying fluid-filled bowel. PICC for PICC history There are diffuse degenerative changes of the visualized lumbar spine. RAD/Abd Inc Decub and/or Erect IMPRESSION: Findings consistent with small bowel obstruction. The findings appear essentially unchanged from the CT. Electronically Signed: Duke Miguel DO at 16:16 EDT Tel [phone], Service support ,
--- NOTE | 2018-10-14 16:20 | NURSING ---
Patient ambulated a lap in the hallways with [employer]
[2018-10-14 16:55] LABS: Bedside Glucose 94 mg/dL (70-110)
[2018-10-14] MEDS: proMETHazine 25 MG/ML Syringe 6.25 MG IV (17:28)
[2018-10-14] MEDS: 0.9% NaCl Peripheral Flush Adult/Peds IV ×2 (17:29→20:41)
[2018-10-14 23:41] LABS: Bedside Glucose 91 mg/dL (70-110)
[2018-10-14] MEDS: Oxymetazoline 0.05% 1 SPRAY SPRAY.BTL 2 SPRAY NASAL (23:54)
[2018-10-14] MEDS: Lidocaine 4% 5 ML Ampul 2 ML INHALATION (23:55)
--- NOTE | 2018-10-15 00:40 | RAD_ITS ---
HISTORY: ng tube placement small bowel obstruction EXAMINATION/TECHNIQUE: XR Abdomen 1 View: Portable AP upright COMPARISON: CT abdomen and pelvis 10/14/2018 FINDINGS: Single portable AP upright view of the lower thorax and upper abdomen. The NG tube coils backward within the mid esophagus at the carinal level. The distal tubes not visualized. No pneumothorax. No free intraperitoneal air. Redemonstration of small bowel distention in keeping with small bowel obstruction. RAD/Abdomen Single View IMPRESSION: 1. The NG tube is coiled within the mid esophagus. The tube should be withdrawn and repeat attempt for satisfactory tube placement. 2. No pneumothorax and no pneumoperitoneum. Next 3. Small bowel obstruction, unchanged. at 0141 Reported and signed by: Jimenez Bass MD N.B. : The above information has been verbally conveyed by Jimenez Bass to Sheyla Godfrey RN, on 10/15/2018 02:43:41 (ET). Electronically Signed: Jimenez Bass, at 1:40 EDT Tel , Service support ,
--- NOTE | 2018-10-15 01:31 | RAD_ITS ---
HISTORY: NG TUBE PLACEMENTATTEMPT #2 EXAMINATION/TECHNIQUE: XR Abdomen 1 View: Portable 0135 hours COMPARISON: Portable abdomen 0042 hours FINDINGS: Repeat AP portable view of the lower chest and upper abdomen obtained. The NG tube now appears in satisfactory position with the tube tip within the body of the stomach. No pneumothorax and no pneumoperitoneum. Small bowel distention, unchanged. RAD/Abdomen Single View (Portable) IMPRESSION: 1. Good position of the NG tube. 2. Small bowel distention, unchanged. at 0241 Reported and signed by: Jimenez Bass MD Electronically Signed: Jimenez Bass, at 2:40 EDT Tel , Service support ,
--- NOTE | 2018-10-15 01:53 | NURSING ---
received a call from Dr. Bass, radiologist- calling to report the results of the first KUB xray. states the NG tube was coiled up in the esophagus and was not in the correct place so it needed to be taken out and reinserted. i notified him that we reinserted a new one and are now awaiting results of that KUB xray to confirm placement.
[2018-10-15 03:36] VITALS: BP 114/66; PULSE 91; RESP 14; TEMP 37.1; O2SAT 92
[2018-10-15] MEDS: Enoxaparin 30 MG/0.3 ML Syringe SC (03:37)
--- NOTE | 2018-10-15 07:18 | PCM.PN.SRG ---
Patient Problems: Active and Suspected Problems (Last Reviewed 10/14/18 @ 15:05 by Roz Cope PA-C) SBO (small bowel obstruction) (Acute) ANGELES (acute kidney injury) (Acute) Hypokalemia (Acute) Hyponatremia (Acute) Hypotension (Acute) Subjective: Patient evaluated resting comfortably in bed. She had emesis over night. Ng tube was placed. 850 cc of dark brown/green fluid was within the canister. She denies abdominal pain/discomfort. She notes sore throat. - Physical Exam General: Alert, Oriented x3, Cooperative Abdomen: Soft, Non Tender, Hypoactive Bowel Sounds - high-pitched tingles, Distended Vital Signs Temp Pulse Resp BP Pulse Ox 98.7 F 91 14 114/66 92 10/15/18 03:36 10/15/18 03:36 10/15/18 03:36 10/15/18 03:36 10/15/18 03:36 Oxygen Delivery Method Room Air Weight: 117 lb 1.047 oz Body Mass Index (BMI) 20.0 Intake and Output for Last 24 Hours 10/13/18 10/14/18 10/15/18 23:59 23:59 23:59 Intake Total 1477 / 1477 759 / 759 Output Total 240 / 240 1650 / 1650 Balance 1237 / 1237 -891 / -891 Laboratory Tests Past 24 Hrs 10/14/18 10/14/18 10/14/18 09:00 09:00 09:00 WBC 9.2 RBC 4.96 Hgb 15.4 H Hct 43.4 MCV 87.5 MCH 31.0 MCHC 35.5 RDW 12.9 RDW Differential 40.8 Plt Count 215 MPV 9.6 Immature Gran % (Auto) 0.300 Neut % (Auto) 71.7 H Lymph % (Auto) 13.3 L [place] % (Auto) 14.5 H Eos % (Auto) 0.1 Baso % (Auto) 0.1 Absolute Neuts (auto) 6.6 Absolute Lymphs (auto) 1.22 Total Counted Not Reportable Sodium 126 L Potassium 3.2 L Chloride 86 L Carbon Dioxide 28.0 Anion Gap 12 BUN 82 H Creatinine 4.28 H Estim Creat Clear Calc 8.41 Est GFR (MDRD) Af Amer 13 L Est GFR (MDRD) Non-Af 11 L BUN/Creatinine Ratio 19.2 Glucose 127 H Lactic Acid 1.6 Calcium 9.4 Magnesium Total Bilirubin 0.80 Direct Bilirubin 0.23 AST 33 ALT 52 Alkaline Phosphatase 69 Total Protein 6.5 Albumin 3.5 Globulin 3.0 Lipase 219 Urine Color Urine Clarity Urine pH Ur Specific [place] Urine Protein Urine Glucose (UA) Urine Ketones Urine Occult Blood Urine Nitrite Urine Bilirubin Urine Urobilinogen Ur Leukocyte Esterase Urine RBC Urine WBC Ur Squamous Epith Cells Urine Bacteria Hyaline Casts Fine Granular Casts Urine Mucus 10/14/18 10/15/18 09:15 06:50 WBC RBC Hgb Hct MCV MCH MCHC RDW RDW Differential Plt Count MPV Immature Gran % (Auto) Neut % (Auto) Lymph % (Auto) [place] % (Auto) Eos % (Auto) Baso % (Auto) Absolute Neuts (auto) Absolute Lymphs (auto) Total Counted Sodium Pending Potassium Pending Chloride Pending Carbon Dioxide Pending Anion Gap Pending BUN Pending Creatinine Pending Estim Creat Clear Calc Est GFR (MDRD) Af Amer Pending Est GFR (MDRD) Non-Af Pending BUN/Creatinine Ratio Pending Glucose Pending Lactic Acid Calcium Pending Magnesium Pending Total Bilirubin Direct Bilirubin AST ALT Alkaline Phosphatase Total Protein Albumin Globulin Lipase Urine Color Yellow Urine Clarity Sl. Cloudy Urine pH 5.0 Ur Specific [place] 1.025 Urine Protein 100 H Urine Glucose (UA) Normal Urine Ketones Negative Urine Occult Blood 10 H Urine Nitrite Negative Urine Bilirubin 6 H Urine Urobilinogen Normal Ur Leukocyte Esterase 100 H Urine RBC 0 SEEN Urine WBC 0-5 SEEN Ur Squamous Epith Cells 0-5 SEEN Urine Bacteria 1+ Hyaline Casts 0-5 SEEN Fine Granular Casts 0-5 SEEN Urine Mucus RARE POC Glucose 10/14/18 10/14/18 22:20 16:52 POC Glucose 91 94 Medical Necessity - Tobacco Use Smoking Status: Former smoker Tobacco Use: Non-smoker Assessment/Plan All Active Problems (Last Reviewed 10/14/18 @ 15:05 by Roz Cope PA-C) Screening for intestinal cancer (Acute) Ventral incisional hernia (Acute) SBO (small bowel obstruction) (Acute) ANGELES (acute kidney injury) (Acute) Hypokalemia (Acute) Hyponatremia (Acute) Hypotension (Acute) S/P repair of ventral hernia (Acute) S/P hysterectomy (Acute) S/P colectomy (Acute) S/P colonoscopy (Acute) History of diverticulosis (Acute) I have been consulted with Dr. Caldwell Impression: Small bowel obstruction Continue IV hydration May ambulate patient Will order throat lozenge No surgical intervention at this point We will continue to monitor this patient Code Visit Inpatient E&M: 48721 [facility] Hosp L1
[2018-10-15 07:44] LABS: Anion Gap 13 (5-15); BUN 65 mg/dL (7-18); BUN/Creat Ratio 29.4 RATIO (10-20); Calcium,Total 8.9 mg/dL (8.5-10.1); Chloride 97 mmol/L (98-107); Creatinine, Serum 2.21 mg/dL (0.55-1.02); EST Glomerular Filtration Rate 23 mL/min (>60); Est Glom Filt Rate - Afr Amer 27 mL/min (>60); Estimated Creatinine Clearance 17.02 ml/min; Glucose 78 mg/dL (74-106); Magnesium 2.2 mg/dL (1.6-2.6); Potassium 3.7 mmol/L (3.5-5.1); Sodium Level 137 mmol/L (136-145)
--- NOTE | 2018-10-15 09:30 | NURSING ---
Report called to Radha on MS2 at 0910.
[2018-10-15 10:30] VITALS: PULSE 80
[2018-10-15 11:15] VITALS: BP 97/61; PULSE 80; RESP 18; TEMP 37; O2SAT 96
[2018-10-15] MEDS: BENZOCAINE/MENTHOL 1 LOZENGE 2 LOZENGE MUCOUS MEM (11:30)
--- NOTE | 2018-10-15 16:29 | PCM.CONS.GEN ---
Problem List (1) SBO (small bowel obstruction) Status: Acute (2) ANGELES (acute kidney injury) Status: Acute (3) Hypokalemia Status: Acute (4) Hyponatremia Status: Acute (5) Hypotension Status: Acute Qualifiers: Hypotension type: hypotension due to hypovolemia Qualified Code(s): I95.89 - Other hypotension; E86.1 - Hypovolemia Reason for Consult History of Present Illness: The patient is a 82 year old F [] Past Medical History Medical History: Medical History (Last Reviewed 10/14/18 @ 15:05 by Roz Cope PA-C) History of diverticulosis (Acute) Z87. 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 HTN (hypertension) I10 Allergies Latex, Natural Rubber Allergy (Mild, Verified 10/14/18 07:58) rash Home Medications: Ambulatory Orders Medication Instructions Recorded Alendronate Sodium 70 mg PO QWEEK 11/14/16 Calcium Carbonate [Calcium] 1,200 mg PO DAILY 11/14/16 Cholecalciferol (Vitamin D3) 4,000 unit PO DAILY 11/14/16 [Vitamin D3] Villanueva-3 Fatty Acids/Fish Oil [Fish 1 ea PO DAILY 11/14/16 Oil 1,000 mg Capsule] Multivitamin [Multiple Vitamins] 1 ea PO DAILY 07/23/17 Lisinopril [Zestril] 10 mg PO DAILY 10/14/18 Smz/Tmp Ds [Bactrim Ds] 1 tab PO BID 10/14/18 Surgical History: Surgical History (Last Reviewed 10/14/18 @ 15:07 by Roz Cope PA-C) S/P repair of ventral hernia (Acute) Z98.890, Z87.19 07/25/17 S/P hysterectomy (Acute) Z90.710 1981 S/P colectomy (Acute) Z90.49 07/06/2006 S/P colonoscopy (Acute) Z98.890 07/05/2006 Psychiatric History: No pertinent psych hx RN DOCUMENTATION SPECIALIST History: No pertinent RN DOCUMENTATION SPECIALIST history Lives: Spouse/ Significant Other Smoking Status: Former smoker Tobacco Use: Non-smoker Alcohol: Rare Drugs: None - *Family History Paternal Family History: Family History (Last Reviewed 10/14/18 @ 15:07 by Roz Cope PA-C) Father Diabetes Heart disease Hypertension Other Parkinson disease Patient Problems: Active and Suspected Problems (Last Reviewed 10/14/18 @ 15:05 by Roz Cope PA-C) SBO (small bowel obstruction) (Acute) ANGELES (acute kidney injury) (Acute) Hypokalemia (Acute) Hyponatremia (Acute) Hypotension (Acute) - Physical Exam Vital Signs Temp Pulse Resp BP Pulse Ox 37.0 C 80 18 97/61 96 10/15/18 11:15 10/15/18 11:15 10/15/18 11:15 10/15/18 11:15 10/15/18 11:15 Oxygen Delivery Method Room Air Weight: 53.1 kg Body Mass Index (BMI) 20.0 Intake and Output for Last 24 Hours 10/13/18 10/14/18 10/15/18 23:59 23:59 23:59 Intake Total 1477 / 1477 1443 / 1443 Output Total 240 / 240 1650 / 1650 Balance 1237 / 1237 -207 / -207 Laboratory Tests Past 24 Hrs 10/15/18 06:50 Sodium 137 Potassium 3.7 Chloride 97 L Carbon Dioxide 27.0 Anion Gap 13 BUN 65 H Creatinine 2.21 H Estim Creat Clear Calc 17.02 Est GFR (MDRD) Af Amer 27 L Est GFR (MDRD) Non-Af 23 L BUN/Creatinine Ratio 29.4 H Glucose 78 Calcium 8.9 Magnesium 2.2 POC Glucose 10/14/18 10/14/18 22:20 16:52 POC Glucose 91 94 Assessment/Plan All Active Problems (Last Reviewed 10/14/18 @ 15:05 by Roz Cope PA-C) Screening for intestinal cancer (Acute) Ventral incisional hernia (Acute) SBO (small bowel obstruction) (Acute) ANGELES (acute kidney injury) (Acute) Hypokalemia (Acute) Hyponatremia (Acute) Hypotension (Acute) S/P repair of ventral hernia (Acute) S/P hysterectomy (Acute) S/P colectomy (Acute) S/P colonoscopy (Acute) History of diverticulosis (Acute) Code Visit Inpatient E&M: 56819 Init Hosp L1 [id number]: [id number] Insert tunneled cv cath Procedures: 72521 Advncd Care Plan 30 Min
[2018-10-15 16:39] VITALS: BP 121/70; PULSE 78; RESP 18; TEMP 36.7; O2SAT 93
--- NOTE | 2018-10-15 19:29 | PCM.PROGNOTE ---
Patient Problems: Active and Suspected Problems (Last Updated 10/15/18 @ 19:34 by Jad Jain DO) SBO (small bowel obstruction) (Acute) ANGELES (acute kidney injury) (Acute) Hypokalemia (Acute) Hyponatremia (Acute) Hypotension (Acute) Subjective: Patient was seen and examined today, patient's creatinine and BUN are improved since yesterday. Patient now has an NG tube in and general surgery notes were reviewed. Patient has no complaints of any shortness of breath or abdominal pain at this time. - Physical Exam General: Alert, Oriented x3, Cooperative, No apparent distress, Well developed HEENT: Atraumatic, PERRLA, EOMI, Normocephalic Oral: Moist Mucosa Neck: Supple, No JVD, Trachea Midline, Thyroid Normal Size and Texture Lungs: Clear to auscultation, Normal air movement, No rhonchi, No wheeze, No rales, Diminished, Rales Cardiovascular: Regular rate, Regular Rhythm, Normal S1, Normal S2, No murmurs, No Ectopic Activity, PMI Normal, No rub noted, No Gallop Abdomen: Bowel Sounds Present, Soft, Non Tender, Hypoactive Bowel Sounds, Distended - Slightly distended Extremities: No clubbing, No cyanosis, No edema, Capillary Refill Less than 3 Seconds Skin: No rashes, No breakdown Musculoskeletal: No Tenderness to Palpation of Joints or Extremities Neurological: Cranial nerves II-XII grossly intact, Neuro grossly intact, Sensory exam intact to light touch and pain, Coordination normal Psych/Mental Status: Normal Affect, Appropriate, Alert and oriented to time, place, person, mood and affect Vital Signs Temp Pulse Resp BP Pulse Ox 98.0 F 78 18 121/70 H 93 10/15/18 16:39 10/15/18 16:39 10/15/18 16:39 10/15/18 16:39 10/15/18 16:39 Oxygen Delivery Method Room Air Weight: 53.1 kg Body Mass Index (BMI) 20.0 Intake and Output for Last 24 Hours 10/13/18 10/14/18 10/15/18 23:59 23:59 23:59 Intake Total 1477 / 1477 1818 / 1818 Output Total 240 / 240 2525 / 2525 Balance 1237 / 1237 -707 / -707 Laboratory Tests Past 24 Hrs 10/15/18 06:50 Sodium 137 Potassium 3.7 Chloride 97 L Carbon Dioxide 27.0 Anion Gap 13 BUN 65 H Creatinine 2.21 H Estim Creat Clear Calc 17.02 Est GFR (MDRD) Af Amer 27 L Est GFR (MDRD) Non-Af 23 L BUN/Creatinine Ratio 29.4 H Glucose 78 Calcium 8.9 Magnesium 2.2 POC Glucose 10/14/18 22:20 POC Glucose 91 Medical Necessity - Tobacco Use Smoking Status: Former smoker Tobacco Use: Non-smoker Assessment/Plan All Active Problems (Last Updated 10/15/18 @ 19:34 by Jad Jain DO) Ventral incisional hernia (Resolved) SBO (small bowel obstruction) (Acute) ANGELES (acute kidney injury) (Acute) Hypokalemia (Acute) Hyponatremia (Acute) Hypotension (Acute) #1 acute small bowel obstruction-probably secondary to adhesions-continue present treatment, general surgery is participating in her care #2 acute kidney injury-improving with administration of fluids, recheck labs #3 hyponatremia-secondary to nausea and vomiting, improving, recheck labs #4 essential hypertension-continue to monitor blood pressure #5 hypotension-probably secondary to volume depletion, continue fluids and monitor blood pressure Code Visit Inpatient E&M: 19160 Subs Hosp L2
[2018-10-15 21:25] VITALS: BP 106/70; PULSE 75; RESP 18; TEMP 37.3; O2SAT 93
[2018-10-16] VITALS (10 sets, daily range): BP systolic 118–144; BP diastolic 66–80; PULSE 32–70; RESP 16–18; TEMP 36.2–37.1; O2SAT 94–100; BMI 20.1
[2018-10-16] MEDS: Enoxaparin 30 MG/0.3 ML Syringe SC (06:11)
[2018-10-16 06:17] LABS: Anion Gap 11 (5-15); BUN 50 mg/dL (7-18); BUN/Creat Ratio 43.1 RATIO (10-20); Calcium,Total 8.2 mg/dL (8.5-10.1); Chloride 107 mmol/L (98-107); Creatinine, Serum 1.16 mg/dL (0.55-1.02); EST Glomerular Filtration Rate 48 mL/min (>60); Est Glom Filt Rate - Afr Amer 58 mL/min (>60); Estimated Creatinine Clearance 32.42 ml/min; Glucose 67 mg/dL (74-106); Potassium 3.9 mmol/L (3.5-5.1); Sodium Level 145 mmol/L (136-145)
[2018-10-16 07:28] LABS: Absolute Neutrophil Count 5.3 X10^3/uL (2.0-7.7); Basophil# 0.01 X10^3/uL; Basophil% 0.1 % (0-1); Eosinophil# 0.02 X10^3/uL; Eosinophils% 0.3 % (0-5); Hematocrit 38.1 % (37-47); Hemoglobin 12.9 g/dl (12.0-15.0); Lymphocyte % 18.5 % (19-41); Mean Corp Hgb Conc 33.9 g/gl (32-36); Mean Corpuscular Hgb 31.8 pg (27.0-32.0); Mean Corpuscular Volume 93.8 fL (81-99); Mean Platelet Vol. 9.9 fl (6.2-12.0); Monocyte# 0.77 X10^3/uL; Monocyte% 10.2 % (0-10); Neutrophil # 5.34 X10^3/uL (2.7-7.7); Neutrophil % 70.5 % (47-70); Platelet Count 186 K/mm3 (150-450); RBC Distribution Width SD 44.3 fl (35.1-43.9); Red Blood Count 4.06 M/mm3 (4.2-5.4); White Blood Count 7.6 K/mm3 (4.4-11.0)
[2018-10-16 07:33] LABS: POSITIVE COUNT NO; POSITIVE DIFFERENTIAL NO; POSITIVE MORPHOLOGY NO
[2018-10-16 09:30] LABS: Bedside Glucose 59 mg/dL (70-110)
--- NOTE | 2018-10-16 10:15 | RAD_ITS ---
STUDY: X-RAY - ABDOMEN/PELVIS REASON FOR EXAM: Female, 82 years old. TECHNIQUE: COMPARISON: None. FINDINGS: Normal visualized lung bases. There is dilatation of small bowel suggestive of mechanical small bowel small obstruction although no upright film is available for interpretation. No obvious gas seen in the rectum. No organomegaly or soft tissue masses noted. Markedly the hypertrophic degenerative disc disease and scoliosis of the lumbar spine convexity to the right. RAD/Abdomen Single View IMPRESSION: Dilatation of small bowel suggestive mechanical small bowel obstruction please correlate clinically. Electronically Signed: Adelita Davalos, at 11:54 EDT Tel , Service support ,
--- NOTE | 2018-10-16 10:27 | PCM.PN.SRG ---
Patient Problems: Active and Suspected Problems (Last Updated 10/15/18 @ 19:34 by Jad Jain DO) SBO (small bowel obstruction) (Acute) ANGELES (acute kidney injury) (Acute) Hypokalemia (Acute) Hyponatremia (Acute) Hypotension (Acute) Subjective: Patient evaluated resting comfortably in bed. She denies flatus and BM. She notes ambulating multiple times int he hallway over night. She denies nausea. She is feeling very comfortable. Sore throat has improved. She is tolerating ice chips. - Physical Exam General: Alert, Oriented x3, Cooperative HEENT: - - NG tube intact with dark green fluid noted in the canister Abdomen: Soft, Non Tender, Hypoactive Bowel Sounds - High-pitched tingles noted, Distended - slightly Vital Signs Temp Pulse Resp BP Pulse Ox 97.7 F L 68 18 134/75 H 95 10/16/18 09:20 10/16/18 09:20 10/16/18 09:20 10/16/18 09:20 10/16/18 09:20 Oxygen Delivery Method Room Air Weight: 117 lb 1.047 oz Body Mass Index (BMI) 20.0 Intake and Output for Last 24 Hours 10/14/18 10/15/18 10/16/18 23:59 23:59 23:59 Intake Total 1477 / 1477 2770 / 2770 1319 / 1319 Output Total 240 / 240 4075 / 4075 800 / 800 Balance 1237 / 1237 -1305 / -1305 519 / 519 Laboratory Tests Past 24 Hrs 10/16/18 10/16/18 05:32 05:50 WBC 7.6 RBC 4.06 L Hgb 12.9 Hct 38.1 MCV 93.8 MCH 31.8 MCHC 33.9 RDW 13.0 RDW Differential 44.3 H Plt Count 186 MPV 9.9 Immature Gran % (Auto) 0.400 Neut % (Auto) 70.5 H Lymph % (Auto) 18.5 L [place] % (Auto) 10.2 H Eos % (Auto) 0.3 Baso % (Auto) 0.1 Absolute Neuts (auto) 5.3 Absolute Lymphs (auto) 1.40 Total Counted Not Reportable Sodium 145 Potassium 3.9 Chloride 107 Carbon Dioxide 27.0 Anion Gap 11 BUN 50 H Creatinine 1.16 H Estim Creat Clear Calc 32.42 Est GFR (MDRD) Af Amer 58 L Est GFR (MDRD) Non-Af 48 L BUN/Creatinine Ratio 43.1 H Glucose 67 L Calcium 8.2 L POC Glucose 10/16/18 09:25 POC Glucose 59 L Medical Necessity - Tobacco Use Smoking Status: Former smoker Tobacco Use: Non-smoker Assessment/Plan All Active Problems (Last Updated 10/15/18 @ 19:34 by Jad Jain DO) Ventral incisional hernia (Resolved) SBO (small bowel obstruction) (Acute) ANGELES (acute kidney injury) (Acute) Hypokalemia (Acute) Hyponatremia (Acute) Hypotension (Acute) I have been consulted with Dr. Caldwell Impression: Small bowel obstruction Continue IV hydration May ambulate patient Will order throat lozenge No surgical intervention at this point I have discussed this patient with Dr. Caldwell I have also discussed with the patient that surgical intervention may be needed if her GI function does not show any progression Order KUB today We will continue to monitor this patient Code Visit Inpatient E&M: 65198 [facility] Hosp L1
[2018-10-16 13:56] LABS: Bedside Glucose 66 mg/dL (70-110)
--- NOTE | 2018-10-16 16:50 | PCM.PN.BLA ---
Progress Note I have been asked by the patient and Dr. Caldwell to take over operative management. Dr. Caldwell had plan to proceed with laparoscopy with possible laparotomy for non-resolving small bowel obstruction. I reviewed my previous documentation. She has had a remote sigmoid colectomy done laparoscopically for diverticular disease. Subsequent to that she has had a colonoscopy demonstrating patent anastomosis and no acute findings. That exam was remote. She is also previously had a hysterectomy. She developed a ventral hernia as a consequence. Surgery was performed which include laparoscopy with extensive lysis of adhesions and then placement of a ventral light ST mesh with a tunneled portion that went behind the pubis after mobilization of the urinary bladder. A portion of that was covered with peritoneum but a portion was left open. I have reviewed her CT scan did suggest that there are very distal loops of ileum that are decompressed and it appears that there is a focus of caliber change in the right lower quadrant pelvic area. I am suspicious that this is related to her previous hysterectomy as this is the same location where at the time of her hernia repair she had extensive adhesions. I have proposed for her a laparoscopy however the patient is well aware that conversion to laparotomy may be required. She has not had any flatus or stool today. She still remains distended though not currently having pain. Her abdominal x-ray is persistent demonstrating significant dilatation of small bowel loops. I will assume operative management and will proceed with definitive surgery today. Johnnie Diaz M.D., F.A.C.S.
[2018-10-16] MEDS: Bupivacaine Mpf 0.5% 30 ML VIAL (17:13)
--- NOTE | 2018-10-16 17:53 | OP.PCM_ITS ---
Problem List (1) SBO (small bowel obstruction) Status: Acute Report of Operation Date of Procedure: 10/16/18 Pre-Operative Diagnosis: Acute small bowel obstruction Post-Operative Diagnosis: Acute small bowel obstruction secondary to adhesive band Surgery/Procedure Performed:: Diagnostic laparoscopy with laparoscopic lysis of adhesions and release of small bowel obstruction Description of Surgical Findings:: Timeout and informed consent was obtained. 10-year-old female was taken the operative placement the table underwent general endotracheal intubation anesthesia. The abdomen was sterilely prepped and draped. Cefotetan 2 g were given intravenously preoperatively. 0.5% Marcaine was used as local anesthetic. A total of 30 cc was used. In the epigastrium local was instilled transverse incision was made sharp dissection carried down through substance tissue holding sutures of 0 Vicryl placed a vertical incision was made in the fascia with tedious blunt dissection it was an sharp dissection able to gain access cleanly through the peritoneum Catheter Was Inserted the Abdomen Was Inflated with CO2 to Pressure for 10 Minutes Medical Pressure 5 M Trochars Were Placed in the R ight Lateral Mid Abdomen the Left Mid Abdomen and the Supra Umbilical Mid Abdomen. Inspection Revealed That There Is Decompressed Very Distal Small Bowel. The Distal Small Bowel Was Adherent to the Right Pelvis but That Was Not the Focus of Obstruction. Working My Way Backward There Is Clear Evidence of Adhesive Band Significantly Involving the Small Bowel Was Able to Sharply Lyse That Band and Release of Small Bowel. Now There Is Certainly Was Evidence of Multiple Adhesions of Loop of Small Bowel to Small Bowel but upon Careful Inspection None of These Appeared to Be the Source of Obstruction. The Adhesions Were Very Dense and Could Not Be Easily . At the Site of Potential Internal Hernia I Did Sharply Lyse the Bowel to Bowel Attachment to Eliminate a Potential Internal Hernia. There Was Additional Small Bowel Adherent to the Pelvic Sidewall Forming the Potential Site for Internal Hernia but However Those Adhesions Were Very Dense Making identification of the bowel very difficult I elected not to lyse that adhesion. The bowel all appeared to be viable. At no point it appeared to be a bowel injury. The bowel was inspected I took a photograph at the site where the adhesion was I felt that that bowel was still viable did not plan for resection. Trochars removed and visualization the abdomen was allowed to deflate the CO2 the fascia at the [place] site was closed with simple sutures of 0 Nurolon. Skin edges approximate interrupted 4-0 Monocryl subdermal stitches. Steri-Strip Telfa and OpSite dressings applied. Sponge and instrument and needle counts were reported to surgically correct. Blood loss quite minimal. She tolerated the procedure well was taken to the recovery area in satisfactory condition without apparent complication. Specimens none. Drains none. Blood loss minimal. Johnnie Diaz M.D., F.A.C.S. Type of Anesthesia:: General Anesthesiologist: Mele Hammond
[2018-10-16] MEDS: BENZOCAINE/MENTHOL 1 LOZENGE 2 LOZENGE MUCOUS MEM ×2 (19:14→22:10)
--- NOTE | 2018-10-16 19:50 | PCM.PROGNOTE ---
Patient Problems: Active and Suspected Problems (Last Updated 10/15/18 @ 19:34 by Jad Jain DO) SBO (small bowel obstruction) (Acute) ANGELES (acute kidney injury) (Acute) Hypokalemia (Acute) Hyponatremia (Acute) Hypotension (Acute) Subjective: Patient was seen and examined this evening, she underwent a laparoscopy with lysis of adhesions freeing up her small bowel obstruction today. Patient is in no distress postop, she has no complaints of any nausea, chest pain, abdominal pain, or shortness of breath. - Physical Exam General: Alert, Oriented x3, Cooperative, No apparent distress, Well developed HEENT: Atraumatic, PERRLA, EOMI, Normocephalic Oral: Moist Mucosa Neck: Supple, Trachea Midline, Thyroid Normal Size and Texture Lungs: Clear to auscultation, Normal air movement, No rhonchi, No wheeze, No rales, Diminished, Rales Cardiovascular: Regular rate, Regular Rhythm, Normal S1, Normal S2, No murmurs, No Ectopic Activity, PMI Normal, No rub noted, No Gallop Abdomen: Bowel Sounds Present, Soft, Hypoactive Bowel Sounds, Distended - Abdomen appears to be moderately distended Extremities: No clubbing, No cyanosis, No edema, Capillary Refill Less than 3 Seconds Skin: No rashes, No breakdown Musculoskeletal: No Tenderness to Palpation of Joints or Extremities Neurological: Cranial nerves II-XII grossly intact, Neuro grossly intact, Sensory exam intact to light touch and pain, Coordination normal Psych/Mental Status: Normal Affect, Appropriate, Alert and oriented to time, place, person, mood and affect Vital Signs Temp Pulse Resp BP Pulse Ox 97.9 F 32 L 16 131/72 H 94 10/16/18 19:02 10/16/18 19:02 10/16/18 19:02 10/16/18 19:02 10/16/18 19:02 Oxygen Delivery Method Room Air Weight: 53.1 kg Body Mass Index (BMI) 20.0 Intake and Output for Last 24 Hours 10/14/18 10/15/18 10/16/18 23:59 23:59 23:59 Intake Total 1477 / 1477 2770 / 2770 1444 / 1444 Output Total 240 / 240 4075 / 4075 800 / 800 Balance 1237 / 1237 -1305 / -1305 644 / 644 Laboratory Tests Past 24 Hrs 10/16/18 10/16/18 05:32 05:50 WBC 7.6 RBC 4.06 L Hgb 12.9 Hct 38.1 MCV 93.8 MCH 31.8 MCHC 33.9 RDW 13.0 RDW Differential 44.3 H Plt Count 186 MPV 9.9 Immature Gran % (Auto) 0.400 Neut % (Auto) 70.5 H Lymph % (Auto) 18.5 L [place] % (Auto) 10.2 H Eos % (Auto) 0.3 Baso % (Auto) 0.1 Absolute Neuts (auto) 5.3 Absolute Lymphs (auto) 1.40 Total Counted Not Reportable Sodium 145 Potassium 3.9 Chloride 107 Carbon Dioxide 27.0 Anion Gap 11 BUN 50 H Creatinine 1.16 H Estim Creat Clear Calc 32.42 Est GFR (MDRD) Af Amer 58 L Est GFR (MDRD) Non-Af 48 L BUN/Creatinine Ratio 43.1 H Glucose 67 L Calcium 8.2 L POC Glucose 10/16/18 10/16/18 13:51 09:25 POC Glucose 66 L 59 L Medical Necessity - Tobacco Use Smoking Status: Former smoker Tobacco Use: Non-smoker Assessment/Plan All Active Problems (Last Updated 10/15/18 @ 19:34 by Jad Jain DO) Ventral incisional hernia (Resolved) SBO (small bowel obstruction) (Acute) ANGELES (acute kidney injury) (Acute) Hypokalemia (Acute) Hyponatremia (Acute) Hypotension (Acute) #1 acute small bowel obstruction secondary to adhesions-status post laparoscopy with lysis of adhesions postop day 0, continue present care #2 acute kidney injury-improving with administration of fluids, recheck labs tomorrow #3 hyponatremia-secondary to nausea and vomiting, corrected at this time, recheck labs tomorrow #4 essential hypertension-continue to monitor blood pressure #5 hypotension-probably secondary to volume depletion, this is corrected at this time Code Visit Inpatient E&M: 38311 Subs Hosp L2
--- NOTE | 2018-10-16 20:28 | NURSING ---
ambulated just out of room, into hallway, at this time.
[2018-10-16] MEDS: Morphine 2 MG/ML Syringe IV (22:10)
[2018-10-17] MEDS: BENZOCAINE/MENTHOL 1 LOZENGE 2 LOZENGE MUCOUS MEM ×3 (01:41→14:31)
[2018-10-17 03:52] VITALS: BP 124/80; PULSE 62; RESP 16; TEMP 36.6; O2SAT 95
--- NOTE | 2018-10-17 05:43 | PCM.PN.SRG ---
Patient Problems: Active and Suspected Problems (Last Updated 10/15/18 @ 19:34 by Jad Jain DO) SBO (small bowel obstruction) (Acute) ANGELES (acute kidney injury) (Acute) Hypokalemia (Acute) Hyponatremia (Acute) Hypotension (Acute) Subjective: No complaints, no nausea, no flatus, no change from yesterday - Physical Exam Lungs: Clear to auscultation Abdomen: Soft, Non Tender, Bowel Sounds Not Present, Distended Vital Signs Temp Pulse Resp BP Pulse Ox 97.9 F 62 16 124/80 H 95 10/17/18 03:52 10/17/18 03:52 10/17/18 03:52 10/17/18 03:52 10/17/18 03:52 Oxygen Delivery Method Room Air Weight: 117 lb 1.047 oz Body Mass Index (BMI) 20.0 Intake and Output for Last 24 Hours 10/15/18 10/16/18 10/17/18 23:59 23:59 23:59 Intake Total 2770 / 2770 1920 / 1920 125 / 125 Output Total 4075 / 4075 1450 / 1450 Balance -1305 / -1305 470 / 470 125 / 125 Laboratory Tests Past 24 Hrs 10/16/18 10/16/18 10/17/18 05:32 05:50 05:32 WBC 7.6 Pending RBC 4.06 L Pending Hgb 12.9 Pending Hct 38.1 Pending MCV 93.8 Pending MCH 31.8 Pending MCHC 33.9 Pending RDW 13.0 Pending RDW Differential 44.3 H Pending Plt Count 186 Pending MPV 9.9 Immature Gran % (Auto) 0.400 Neut % (Auto) 70.5 H Pending Lymph % (Auto) 18.5 L [place] % (Auto) 10.2 H Eos % (Auto) 0.3 Baso % (Auto) 0.1 Absolute Neuts (auto) 5.3 Pending Absolute Lymphs (auto) 1.40 Total Counted Not Reportable Pending Sodium 145 Potassium 3.9 Chloride 107 Carbon Dioxide 27.0 Anion Gap 11 BUN 50 H Creatinine 1.16 H Estim Creat Clear Calc 32.42 Est GFR (MDRD) Af Amer 58 L Est GFR (MDRD) Non-Af 48 L BUN/Creatinine Ratio 43.1 H Glucose 67 L Calcium 8.2 L 10/17/18 05:32 WBC RBC Hgb Hct MCV MCH MCHC RDW RDW Differential Plt Count MPV Immature Gran % (Auto) Neut % (Auto) Lymph % (Auto) [place] % (Auto) Eos % (Auto) Baso % (Auto) Absolute Neuts (auto) Absolute Lymphs (auto) Total Counted Sodium Pending Potassium Pending Chloride Pending Carbon Dioxide Pending Anion Gap Pending BUN Pending Creatinine Pending Estim Creat Clear Calc Est GFR (MDRD) Af Amer Pending Est GFR (MDRD) Non-Af Pending BUN/Creatinine Ratio Pending Glucose Pending Calcium Pending POC Glucose 10/16/18 10/16/18 13:51 09:25 POC Glucose 66 L 59 L Medical Necessity - Tobacco Use Smoking Status: Former smoker Tobacco Use: Non-smoker Assessment/Plan All Active Problems (Last Updated 10/15/18 @ 19:34 by Jad Jain DO) Ventral incisional hernia (Resolved) SBO (small bowel obstruction) (Acute) ANGELES (acute kidney injury) (Acute) Hypokalemia (Acute) Hyponatremia (Acute) Hypotension (Acute) Ileus from significant bowel compression from adhesive band Mobilize pt Continue ngt for now
[2018-10-17 05:47] LABS: Absolute Lymphocyte Count 1.82 X10^3/ul (0.83-4.51); Absolute Neutrophil Count 5.3 X10^3/uL (2.0-7.7); Basophil# 0.02 X10^3/uL; Basophil% 0.2 % (0-1); Eosinophil# 0.08 X10^3/uL; Hematocrit 37.7 % (37-47); Hemoglobin 12.7 g/dl (12.0-15.0); Lymphocyte # 1.82 X10^3/ul (4.0); Lymphocyte % 22.6 % (19-41); Mean Corp Hgb Conc 33.7 g/gl (32-36); Mean Corpuscular Hgb 31.6 pg (27.0-32.0); Mean Corpuscular Volume 93.8 fL (81-99); Mean Platelet Vol. 9.5 fl (6.2-12.0); Monocyte# 0.78 X10^3/uL; Monocyte% 9.7 % (0-10); Neutrophil # 5.33 X10^3/uL (2.7-7.7); Platelet Count 172 K/mm3 (150-450); RBC Distribution Width CV 12.8 % (11.6-14.6); RBC Distribution Width SD 42.8 fl (35.1-43.9); Red Blood Count 4.02 M/mm3 (4.2-5.4); White Blood Count 8.1 K/mm3 (4.4-11.0)
[2018-10-17 05:50] LABS: POSITIVE COUNT NO; POSITIVE DIFFERENTIAL NO; POSITIVE MORPHOLOGY NO
[2018-10-17] MEDS: Enoxaparin 30 MG/0.3 ML Syringe SC (06:00)
[2018-10-17 06:04] LABS: Anion Gap 8 (5-15); BUN 29 mg/dL (7-18); BUN/Creat Ratio 29.5 RATIO (10-20); Calcium,Total 7.9 mg/dL (8.5-10.1); Chloride 109 mmol/L (98-107); Creatinine, Serum 0.98 mg/dL (0.55-1.02); EST Glomerular Filtration Rate 58 mL/min (>60); Est Glom Filt Rate - Afr Amer 70 mL/min (>60); Estimated Creatinine Clearance 38.38 ml/min; Glucose 110 mg/dL (74-106); Potassium 3.9 mmol/L (3.5-5.1); Sodium Level 146 mmol/L (136-145)
--- NOTE | 2018-10-17 06:06 | DCINST_ITS ---
Discharge Diet: Light diet - advance as tolerated - if you have questions about your diet instructions, please talk to you doctor. Discharge Activity: May Not Drive - for 1 week or while taking narcotic pain medicine. May shower in (days): 0 - May shower now Lifting Restrictions: 10 pounds Call your doctor if your incision/area has: Continuous Slow Oozing, Sudden Increased Bleeding, Increased Pain/ Swelling, Increased Redness, Foul Smelling Discharge Call your doctor if you observe: Fever of 101 or Higher Suture Line Care: Avoid Pulling/Pushing, Avoid Pinching/Bending Additional Dressing/Incision Instructions:: Change or remove dressing tomorrow. Leave steri-strips in place for 5 days. Allergies/Adverse Reactions: Allergies Latex, Natural Rubber Allergy (Mild, Verified 10/14/18 07:58) rash Medications to take at Discharge Alendronate Sodium 70 mg PO QWEEK 11/14/16 Calcium Carbonate [Calcium] 1,200 mg PO DAILY 11/14/16 Cholecalciferol (Vitamin D3) [Vitamin D3] 4,000 unit PO DAILY 11/14/16 [place]-3 Fatty Acids/Fish Oil [Fish Oil 1,000 mg Capsule] 1 ea PO DAILY 11/14/16 Multivitamin [Multiple Vitamins] 1 ea PO DAILY 07/23/17 Lisinopril [Zestril] 10 mg PO DAILY 10/14/18 Smz/Tmp Ds [Bactrim Ds] 1 tab PO BID 10/14/18 Primary Care Physician: Deena Baldwin MD [Primary Care Provider] - Test Results: Test results from this visit will be discussed in further detail at your follow- up appointment, if applicable. Please Follow Up With: Johnnie Diaz MD - [phone] When: Call to make an appointment to be seen in about 10 days.
[2018-10-17 08:28] VITALS: BP 138/84; PULSE 61; RESP 16; TEMP 36.8; O2SAT 99
[2018-10-17 14:35] VITALS: BP 140/58; PULSE 62; RESP 18; TEMP 37.1; O2SAT 97
[2018-10-17 18:49] VITALS: BP 147/81; PULSE 65; RESP 18; TEMP 37.1; O2SAT 95
[2018-10-17 21:15] VITALS: BP 153/75; PULSE 62; RESP 18; TEMP 37.3; O2SAT 96
[2018-10-18 02:33] VITALS: BP 133/71; PULSE 38; RESP 16; TEMP 36.7; O2SAT 96
[2018-10-18 05:02] VITALS: BP 127/86; PULSE 73; RESP 16; TEMP 37.3; O2SAT 96
[2018-10-18] MEDS: Enoxaparin 30 MG/0.3 ML Syringe SC (05:06)
[2018-10-18] MEDS: 0.9% NaCl Peripheral Flush Adult/Peds IV ×2 (05:07→20:51)
--- NOTE | 2018-10-18 05:45 | PCM.PN.SRG ---
Patient Problems: Active and Suspected Problems (Last Updated 10/15/18 @ 19:34 by Jad Jain DO) SBO (small bowel obstruction) (Acute) ANGELES (acute kidney injury) (Acute) Hypokalemia (Acute) Hyponatremia (Acute) Hypotension (Acute) Subjective: Pt thinks she has felt some movement in her abdomen but no flatus - Physical Exam General: Alert, Oriented x3, Cooperative, No apparent distress Abdomen: Soft, Hypoactive Bowel Sounds, Distended Vital Signs Temp Pulse Resp BP Pulse Ox 99.2 F H 73 16 127/86 H 96 10/18/18 05:02 10/18/18 05:02 10/18/18 05:02 10/18/18 05:02 10/18/18 05:02 Oxygen Delivery Method Room Air Weight: 117 lb 1.047 oz Body Mass Index (BMI) 20.0 Intake and Output for Last 24 Hours 10/16/18 10/17/18 10/18/18 23:59 23:59 23:59 Intake Total 1920 / 1920 3217 / 3217 566 / 566 Output Total 1450 / 1450 2375 / 2375 1100 / 1100 Balance 470 / 470 842 / 842 -534 / -534 Laboratory Tests Past 24 Hrs 10/17/18 10/17/18 05:32 05:32 WBC 8.1 RBC 4.02 L Hgb 12.7 Hct 37.7 MCV 93.8 MCH 31.6 MCHC 33.7 RDW 12.8 RDW Differential 42.8 Plt Count 172 MPV 9.5 Immature Gran % (Auto) 0.500 Neut % (Auto) 66.0 Lymph % (Auto) 22.6 [place] % (Auto) 9.7 Eos % (Auto) 1.0 Baso % (Auto) 0.2 Absolute Neuts (auto) 5.3 Absolute Lymphs (auto) 1.82 Total Counted Not Reportable Sodium 146 H Potassium 3.9 Chloride 109 H Carbon Dioxide 29.0 Anion Gap 8 BUN 29 H Creatinine 0.98 Estim Creat Clear Calc 38.38 Est GFR (MDRD) Af Amer 70 Est GFR (MDRD) Non-Af 58 L BUN/Creatinine Ratio 29.5 H Glucose 110 H Calcium 7.9 L Medical Necessity - Tobacco Use Smoking Status: Former smoker Tobacco Use: Non-smoker Assessment/Plan All Active Problems (Last Updated 10/15/18 @ 19:34 by Jad Jain DO) Ventral incisional hernia (Resolved) SBO (small bowel obstruction) (Acute) ANGELES (acute kidney injury) (Acute) Hypokalemia (Acute) Hyponatremia (Acute) Hypotension (Acute) Softer than yesterday but minimial BS Will continue NGT for the moment Continue care
[2018-10-18 07:45] VITALS: BP 138/92; PULSE 69; RESP 16; TEMP 36.6; O2SAT 98
[2018-10-18] MEDS: Ondansetron 4 MG/2 ML Vial IV (07:47)
--- NOTE | 2018-10-18 08:23 | EKG12_ITS ---
Test Reason : ARRYTHMIA Blood Pressure : / mmHG Vent. Rate : 066 BPM Atrial Rate : 066 BPM P-R Int : 116 ms QRS Dur : 082 ms QT Int : 386 ms P-R-T Axes : 052 -40 -34 degrees QTc Int : 404 ms Normal sinus rhythm Left axis deviation Nonspecific ST and T wave abnormality Abnormal ECG When compared with ECG of 14-OCT-2018 08:45, T wave inversion no longer evident in Anterolateral leads Confirmed by BRODERICK MCCLOUD, ELINA ([id number]), editor continuity and script JOSE SHEPARD ([id number]) on 10/29/2018 2:17:02 PM Referred By: AL Confirmed By:ELINA VILLAFANA MD
--- NOTE | 2018-10-18 09:17 | CASEMGMT ---
RN CM Note: Pt continues to be NPO, NG. ambulating well in halls. DC plan remains home when medically ready. Carlos JAYN RN ACM
[2018-10-18 14:30] VITALS: BP 136/89; PULSE 70; RESP 16; TEMP 36.4; O2SAT 98
--- NOTE | 2018-10-18 14:41 | CASEMGMT ---
Health Care POA in e-chart, SW printed and placed in chart. SLICK Thakur
--- NOTE | 2018-10-18 18:13 | PCM.PROGNOTE ---
Patient Problems: Active and Suspected Problems (Last Updated 10/15/18 @ 19:34 by Jad Jain DO) SBO (small bowel obstruction) (Acute) ANGELES (acute kidney injury) (Acute) Hypokalemia (Acute) Hyponatremia (Acute) Hypotension (Acute) Subjective: Patient was seen and examined today, she continues to have an NG tube in, she has no complaints of any shortness of breath chest pain or abdominal discomfort. - Physical Exam General: Alert, Oriented x3, Cooperative, No apparent distress, Well developed HEENT: Atraumatic, PERRLA, EOMI, Normocephalic Oral: Moist Mucosa Neck: Supple, Trachea Midline, Thyroid Normal Size and Texture Lungs: Clear to auscultation, Normal air movement, No rhonchi, No wheeze, No rales, Diminished, Rales Cardiovascular: Regular rate, Regular Rhythm, Normal S1, Normal S2, No murmurs, No Ectopic Activity, PMI Normal, No rub noted, No Gallop Abdomen: Bowel Sounds Present, Soft, Distended - Mild abdominal distention is noted, No hernias noted Extremities: No clubbing, No cyanosis, No edema, Capillary Refill Less than 3 Seconds Skin: No rashes, No breakdown Musculoskeletal: No Tenderness to Palpation of Joints or Extremities Neurological: Cranial nerves II-XII grossly intact, Neuro grossly intact, Sensory exam intact to light touch and pain, Coordination normal Psych/Mental Status: Normal Affect, Appropriate, Alert and oriented to time, place, person, mood and affect Vital Signs Temp Pulse Resp BP Pulse Ox 97.6 F L 70 16 136/89 H 98 10/18/18 14:30 10/18/18 14:30 10/18/18 14:30 10/18/18 14:30 10/18/18 14:30 Oxygen Delivery Method Room Air Weight: 53.1 kg Body Mass Index (BMI) 20.0 Intake and Output for Last 24 Hours 10/16/18 10/17/18 10/18/18 23:59 23:59 23:59 Intake Total 1920 / 1920 3217 / 3217 1354 / 1354 Output Total 1450 / 1450 2375 / 2375 2100 / 2100 Balance 470 / 470 842 / 842 -746 / -746 Medical Necessity - Tobacco Use Smoking Status: Former smoker Tobacco Use: Non-smoker Assessment/Plan All Active Problems (Last Updated 10/15/18 @ 19:34 by Jad Jain DO) Ventral incisional hernia (Resolved) SBO (small bowel obstruction) (Acute) ANGELES (acute kidney injury) (Acute) Hypokalemia (Acute) Hyponatremia (Acute) Hypotension (Acute) #1 acute small bowel obstruction secondary to adhesions-status post laparoscopy with lysis of adhesions postop day 2, continue present care #2 acute kidney injury-resolved #3 hyponatremia-secondary to nausea and vomiting, corrected at this time #4 essential hypertension-continue to monitor blood pressure #5 hypotension-probably secondary to volume depletion, this is corrected at this time Code Visit Inpatient E&M: 27864 Subs Hosp L2
[2018-10-18 20:30] VITALS: BP 149/98; PULSE 63; RESP 16; TEMP 36.7; O2SAT 98
[2018-10-19 02:27] VITALS: BP 153/97; PULSE 66; RESP 18; TEMP 36.6; O2SAT 97
[2018-10-19] MEDS: Enoxaparin 30 MG/0.3 ML Syringe SC (05:32)
--- NOTE | 2018-10-19 06:21 | PCM.PN.SRG ---
Patient Problems: Active and Suspected Problems (Last Updated 10/15/18 @ 19:34 by Jad Jain DO) SBO (small bowel obstruction) (Acute) ANGELES (acute kidney injury) (Acute) Hypokalemia (Acute) Hyponatremia (Acute) Hypotension (Acute) Subjective: No changes Some feeling of bowel movement, no flatus, no pain - Physical Exam General: Alert, Oriented x3, Cooperative, No apparent distress Abdomen: Soft, Non Tender, Hypoactive Bowel Sounds, Distended Vital Signs Temp Pulse Resp BP Pulse Ox 97.9 F 66 18 153/97 H 97 10/19/18 02:27 10/19/18 02:27 10/19/18 02:27 10/19/18 02:27 10/19/18 02:27 Oxygen Delivery Method Room Air Weight: 117 lb 1.047 oz Body Mass Index (BMI) 20.0 Intake and Output for Last 24 Hours 10/17/18 10/18/18 10/19/18 23:59 23:59 23:59 Intake Total 3217 / 3217 2302 / 2302 245 / 245 Output Total 2375 / 2375 3950 / 3950 600 / 600 Balance 842 / 842 -1648 / -1648 -355 / -355 Medical Necessity - Tobacco Use Smoking Status: Former smoker Tobacco Use: Non-smoker Assessment/Plan All Active Problems (Last Updated 10/15/18 @ 19:34 by Jad Jain DO) Ventral incisional hernia (Resolved) SBO (small bowel obstruction) (Acute) ANGELES (acute kidney injury) (Acute) Hypokalemia (Acute) Hyponatremia (Acute) Hypotension (Acute) NGT output is decreasing Abdomen still distended but soft First detection of some real BS Will continue ngt for now until some flatus Check labs
[2018-10-19 07:11] LABS: Absolute Lymphocyte Count 3.71 X10^3/ul (0.83-4.51); Basophil# 0.04 X10^3/uL; Basophil% 0.3 % (0-1); Eosinophil# 0.17 X10^3/uL; Eosinophils% 1.3 % (0-5); Hematocrit 44.4 % (37-47); Hemoglobin 15.4 g/dl (12.0-15.0); Lymphocyte # 3.71 X10^3/ul (4.0); Mean Corp Hgb Conc 34.7 g/gl (32-36); Mean Corpuscular Hgb 32.2 pg (27.0-32.0); Mean Corpuscular Volume 92.9 fL (81-99); Mean Platelet Vol. 9.7 fl (6.2-12.0); Monocyte# 1.17 X10^3/uL; Monocyte% 8.8 % (0-10); Neutrophil % 60.3 % (47-70); Platelet Count 196 K/mm3 (150-450); RBC Distribution Width CV 12.7 % (11.6-14.6); RBC Distribution Width SD 42.8 fl (35.1-43.9); Red Blood Count 4.78 M/mm3 (4.2-5.4); White Blood Count 13.3 K/mm3 (4.4-11.0)
[2018-10-19 07:12] LABS: POSITIVE COUNT NO; POSITIVE DIFFERENTIAL NO; POSITIVE MORPHOLOGY NO
[2018-10-19 07:30] LABS: Anion Gap 7 (5-15); BUN 8 mg/dL (7-18); BUN/Creat Ratio 8.9 RATIO (10-20); Calcium,Total 8.3 mg/dL (8.5-10.1); Chloride 103 mmol/L (98-107); EST Glomerular Filtration Rate 64 mL/min (>60); Est Glom Filt Rate - Afr Amer 78 mL/min (>60); Estimated Creatinine Clearance 41.79 ml/min; Glucose 110 mg/dL (74-106); Potassium 3.7 mmol/L (3.5-5.1); Sodium Level 138 mmol/L (136-145)
[2018-10-19 08:27] VITALS: BP 137/90; PULSE 60; RESP 18; TEMP 37.1; O2SAT 98
[2018-10-19] MEDS: 0.9% NaCl Peripheral Flush Adult/Peds IV (10:54)
[2018-10-19 14:27] VITALS: BP 135/88; PULSE 76; RESP 18; TEMP 36.6; O2SAT 98
--- NOTE | 2018-10-19 17:34 | PN_ITS ---
Patient Problems: Active and Suspected Problems (Last Updated 10/15/18 @ 19:34 by Jad Jain DO) SBO (small bowel obstruction) (Acute) ANGELES (acute kidney injury) (Acute) Hypokalemia (Acute) Hyponatremia (Acute) Hypotension (Acute) Subjective: Patient was seen and examined today, she does not complain of any shortness of breath or abdominal discomfort to this examiner. Patient states that she felt as if she might have a bowel movement but she did not. - Physical Exam General: Alert, Oriented x3, Cooperative, No apparent distress, Well developed HEENT: Atraumatic, PERRLA, EOMI, Normocephalic Oral: Moist Mucosa Neck: Supple, Trachea Midline, Thyroid Normal Size and Texture Lungs: Clear to auscultation, Normal air movement, No rhonchi, No wheeze, No rales Cardiovascular: Regular rate, Regular Rhythm, Normal S1, Normal S2, No murmurs, No Ectopic Activity Abdomen: Bowel Sounds Present, Soft, Hypoactive Bowel Sounds, Distended - Slight abdominal distention is noted on examination today Extremities: No clubbing, No cyanosis, No edema, Capillary Refill Less than 3 Seconds Skin: No rashes, No breakdown Musculoskeletal: No Tenderness to Palpation of Joints or Extremities Neurological: Cranial nerves II-XII grossly intact, Neuro grossly intact, Sensory exam intact to light touch and pain Psych/Mental Status: Normal Affect, Appropriate, Alert and oriented to time, place, person, mood and affect Vital Signs Temp Pulse Resp BP Pulse Ox 97.8 F 76 18 135/88 H 98 10/19/18 14:27 10/19/18 14:27 10/19/18 14:27 10/19/18 14:27 10/19/18 14:27 Oxygen Delivery Method Room Air Weight: 53.1 kg Body Mass Index (BMI) 20.0 Intake and Output for Last 24 Hours 10/17/18 10/18/18 10/19/18 23:59 23:59 23:59 Intake Total 3217 / 3217 2302 / 2302 1270 / 1270 Output Total 2375 / 2375 3950 / 3950 1250 / 1250 Balance 842 / 842 -1648 / -1648 Laboratory Tests Past 24 Hrs 10/19/18 10/19/18 06:58 06:58 WBC 13.3 H RBC 4.78 Hgb 15.4 H Hct 44.4 MCV 92.9 MCH 32.2 H MCHC 34.7 RDW 12.7 RDW Differential 42.8 Plt Count 196 MPV 9.7 Immature Gran % (Auto) 1.300 H Neut % (Auto) 60.3 Lymph % (Auto) 28.0 [place] % (Auto) 8.8 Eos % (Auto) 1.3 Baso % (Auto) 0.3 Absolute Neuts (auto) 8.0 H Absolute Lymphs (auto) 3.71 Total Counted Not Reportable Sodium 138 Potassium 3.7 Chloride 103 Carbon Dioxide 28.0 Anion Gap 7 BUN 8 Creatinine 0.90 Estim Creat Clear Calc 41.79 Est GFR (MDRD) Af Amer 78 Est GFR (MDRD) Non-Af 64 BUN/Creatinine Ratio 8.9 L Glucose 110 H Calcium 8.3 L Medical Necessity - Tobacco Use Smoking Status: Former smoker Tobacco Use: Non-smoker Assessment/Plan All Active Problems (Last Updated 10/15/18 @ 19:34 by Jad Jain DO) Ventral incisional hernia (Resolved) SBO (small bowel obstruction) (Acute) ANGELES (acute kidney injury) (Acute) Hypokalemia (Acute) Hyponatremia (Acute) Hypotension (Acute) #1 acute small bowel obstruction secondary to adhesions-status post laparoscopy with lysis of adhesions postop day 3, continue present care #2 acute kidney injury-resolved #3 hyponatremia-secondary to nausea and vomiting, corrected at this time #4 essential hypertension-continue to monitor blood pressure #5 hypotension-probably secondary to volume depletion, this is corrected at this time Code Visit Inpatient E&M: 39776 Subs Hosp L2
--- NOTE | 2018-10-19 19:00 | NURSING ---
Pt ambulated hallways x5 for day shift- tolerated well. States unsure if she passed much gas.
[2018-10-19 20:48] VITALS: BP 140/85; PULSE 66; RESP 16; TEMP 36.8; O2SAT 96
[2018-10-20 02:41] VITALS: BP 142/94; PULSE 66; RESP 16; TEMP 37.1; O2SAT 95
--- NOTE | 2018-10-20 05:05 | NURSING ---
Pt walked in the gonzalez 3 times times so far this shift (each walk individually documented under nursing rounds). Nurse as SBA. Pt tolerated well. Each time pt returned to bed with the HOB elevated & SCD's applied.
[2018-10-20 05:11] LABS: Absolute Lymphocyte Count 2.67 X10^3/ul (0.83-4.51); Absolute Neutrophil Count 7.2 X10^3/uL (2.0-7.7); Basophil# 0.04 X10^3/uL; Basophil% 0.4 % (0-1); Eosinophil# 0.13 X10^3/uL; Eosinophils% 1.2 % (0-5); Hematocrit 38.4 % (37-47); Hemoglobin 13.3 g/dl (12.0-15.0); Lymphocyte # 2.67 X10^3/ul (4.0); Mean Corp Hgb Conc 34.6 g/gl (32-36); Mean Corpuscular Hgb 31.7 pg (27.0-32.0); Mean Corpuscular Volume 91.4 fL (81-99); Mean Platelet Vol. 9.5 fl (6.2-12.0); Monocyte# 0.92 X10^3/uL; Monocyte% 8.3 % (0-10); Neutrophil # 7.24 X10^3/uL (2.7-7.7); Neutrophil % 65.1 % (47-70); Platelet Count 175 K/mm3 (150-450); RBC Distribution Width CV 12.6 % (11.6-14.6); RBC Distribution Width SD 41.8 fl (35.1-43.9); White Blood Count 11.1 K/mm3 (4.4-11.0)
[2018-10-20 05:21] LABS: POSITIVE COUNT NO; POSITIVE DIFFERENTIAL NO; POSITIVE MORPHOLOGY NO
[2018-10-20] MEDS: Enoxaparin 30 MG/0.3 ML Syringe SC (06:37)
--- NOTE | 2018-10-20 07:21 | PN.SURG_ITS ---
Patient Problems: Active and Suspected Problems (Last Updated 10/15/18 @ 19:34 by Jad Jain DO) SBO (small bowel obstruction) (Acute) ANGELES (acute kidney injury) (Acute) Hypokalemia (Acute) Hyponatremia (Acute) Hypotension (Acute) Subjective: Patient's NG put out about 200 overnight per nursing, canister dark green, patient states she may be having very little flatus but not much. - Physical Exam General: Alert, Oriented x3, Cooperative, No apparent distress HEENT: Atraumatic Lungs: Normal air movement Cardiovascular: Regular rate Abdomen: Bowel Sounds Present, Soft, Distended - Mild to moderate, Tender - Minimal tenderness at incisions, clean dry and intact Extremities: No clubbing, No cyanosis, No edema Neurological: Cranial nerves II-XII grossly intact Psych/Mental Status: Normal Affect Vital Signs Temp Pulse Resp BP Pulse Ox 98.8 F 66 16 142/94 H 95 10/20/18 02:41 10/20/18 02:41 10/20/18 02:41 10/20/18 02:41 10/20/18 02:41 Oxygen Delivery Method Room Air Weight: 117 lb 1.047 oz Body Mass Index (BMI) 20.0 Intake and Output for Last 24 Hours 10/18/18 10/19/18 10/20/18 23:59 23:59 23:59 Intake Total 2302 / 2302 2430 / 2430 591 / 591 Output Total 3950 / 3950 3100 / 3100 400 / 400 Balance -1648 / -1648 -670 / -670 191 / 191 Laboratory Tests Past 24 Hrs 10/19/18 10/20/18 06:58 04:45 WBC 11.1 H RBC 4.20 Hgb 13.3 Hct 38.4 MCV 91.4 MCH 31.7 MCHC 34.6 RDW 12.6 RDW Differential 41.8 Plt Count 175 MPV 9.5 Immature Gran % (Auto) 1.000 H Neut % (Auto) 65.1 Lymph % (Auto) 24.0 [place] % (Auto) 8.3 Eos % (Auto) 1.2 Baso % (Auto) 0.4 Absolute Neuts (auto) 7.2 Absolute Lymphs (auto) 2.67 Total Counted Not Reportable Sodium 138 Potassium 3.7 Chloride 103 Carbon Dioxide 28.0 Anion Gap 7 BUN 8 Creatinine 0.90 Estim Creat Clear Calc 41.79 Est GFR (MDRD) Af Amer 78 Est GFR (MDRD) Non-Af 64 BUN/Creatinine Ratio 8.9 L Glucose 110 H Calcium 8.3 L Medical Necessity - Tobacco Use Smoking Status: Former smoker Tobacco Use: Non-smoker Assessment/Plan All Active Problems (Last Updated 10/15/18 @ 19:34 by Jad Jain DO) Ventral incisional hernia (Resolved) SBO (small bowel obstruction) (Acute) ANGELES (acute kidney injury) (Acute) Hypokalemia (Acute) Hyponatremia (Acute) Hypotension (Acute) Await increased flatus prior to removing NG Continue ambulation Jyothi Zhong M.D. Pager: [phone] [facility] [address] [place] [address], [address] [place] [address] Office: [phone]
[2018-10-20 08:40] VITALS: BP 139/92; PULSE 74; RESP 18; TEMP 36.6; O2SAT 99
[2018-10-20] MEDS: 0.9% NaCl Peripheral Flush Adult/Peds IV (09:28)
[2018-10-20 13:24] VITALS: BP 151/94; PULSE 64; RESP 16; TEMP 37.1; O2SAT 98
[2018-10-20 17:05] VITALS: BP 135/90; PULSE 68; RESP 16; TEMP 36.9; O2SAT 98
--- NOTE | 2018-10-20 18:38 | PCM.PROGNOTE ---
Patient Problems: Active and Suspected Problems (Last Updated 10/15/18 @ 19:34 by Jad Jain DO) SBO (small bowel obstruction) (Acute) ANGELES (acute kidney injury) (Acute) Hypokalemia (Acute) Hyponatremia (Acute) Hypotension (Acute) Subjective: Patient is seen and examined today in her room, she still has her NG tube inserted, on examination today she has increased bowel sounds. Patient has no complaints of any abdominal discomfort today or nausea. - Physical Exam General: Alert, Oriented x3, Cooperative, No apparent distress, Well developed HEENT: Atraumatic, PERRLA, EOMI, Normocephalic Oral: Moist Mucosa Neck: Supple, Trachea Midline, Thyroid Normal Size and Texture Lungs: Clear to auscultation, Normal air movement, No rhonchi, No wheeze, No rales, Diminished, Rales Cardiovascular: Regular rate, Regular Rhythm, Normal S1, Normal S2, No murmurs, No Ectopic Activity, PMI Normal Abdomen: Bowel Sounds Present, Soft, Hypoactive Bowel Sounds, Distended - Mild abdominal distention is noted Extremities: No clubbing, No cyanosis, No edema, Capillary Refill Less than 3 Seconds Skin: No rashes, No breakdown Musculoskeletal: No Tenderness to Palpation of Joints or Extremities Neurological: Cranial nerves II-XII grossly intact, Sensory exam intact to light touch and pain Psych/Mental Status: Normal Affect, Appropriate, Alert and oriented to time, place, person, mood and affect Vital Signs Temp Pulse Resp BP Pulse Ox 98.5 F 68 16 135/90 H 98 10/20/18 17:05 10/20/18 17:05 10/20/18 17:05 10/20/18 17:05 10/20/18 17:05 Oxygen Delivery Method Room Air Weight: 53.1 kg Body Mass Index (BMI) 20.0 Intake and Output for Last 24 Hours 10/18/18 10/19/18 10/20/18 23:59 23:59 23:59 Intake Total 2302 / 2302 2430 / 2430 1652 / 1652 Output Total 3950 / 3950 3100 / 3100 1500 / 1500 Balance -1648 / -1648 -670 / -670 152 / 152 Laboratory Tests Past 24 Hrs 10/20/18 04:45 WBC 11.1 H RBC 4.20 Hgb 13.3 Hct 38.4 MCV 91.4 MCH 31.7 MCHC 34.6 RDW 12.6 RDW Differential 41.8 Plt Count 175 MPV 9.5 Immature Gran % (Auto) 1.000 H Neut % (Auto) 65.1 Lymph % (Auto) 24.0 [place] % (Auto) 8.3 Eos % (Auto) 1.2 Baso % (Auto) 0.4 Absolute Neuts (auto) 7.2 Absolute Lymphs (auto) 2.67 Total Counted Not Reportable Medical Necessity - Tobacco Use Smoking Status: Former smoker Tobacco Use: Non-smoker Assessment/Plan All Active Problems (Last Updated 10/15/18 @ 19:34 by Jad Jain DO) Ventral incisional hernia (Resolved) SBO (small bowel obstruction) (Acute) ANGELES (acute kidney injury) (Acute) Hypokalemia (Acute) Hyponatremia (Acute) Hypotension (Acute) #1 acute small bowel obstruction secondary to adhesions-status post laparoscopy with lysis of adhesions postop day 4, continue present care #2 acute kidney injury-resolved #3 hyponatremia-secondary to nausea and vomiting, corrected at this time #4 essential hypertension-continue to monitor blood pressure, patient will need to resume her Zestril after her NG tube is pulled #5 hypotension-probably secondary to volume depletion, this is corrected at this time Code Visit Inpatient E&M: 30555 Subs Hosp L2
[2018-10-20 20:14] VITALS: BP 156/98; PULSE 65; RESP 16; TEMP 36.9; O2SAT 97
[2018-10-20 21:20] VITALS: BP 148/92
--- NOTE | 2018-10-21 00:58 | NURSING ---
Pt reports passing gas. Pt has walked in the [place]onzalez twice this shift. One full lap and the other 1 1/2 laps. Pt tolerated well. Pt returned to bed with HOB elevated, scd's applied & NG to LIWS.
[2018-10-21 04:00] VITALS: BP 150/98; PULSE 69; RESP 16; TEMP 36.6; O2SAT 97
--- NOTE | 2018-10-21 04:21 | NURSING ---
Pt states she passed more gas this morning. Pt just walked two full laps in the hallway- tolerated well. Returned to bed. Head of bed elevated, SCD's applied & NG to LIWS.
[2018-10-21] MEDS: Enoxaparin 30 MG/0.3 ML Syringe SC (05:50)
--- NOTE | 2018-10-21 06:34 | PCM.PN.SRG ---
Patient Problems: Active and Suspected Problems (Last Updated 10/15/18 @ 19:34 by Jad Jain DO) SBO (small bowel obstruction) (Acute) ANGELES (acute kidney injury) (Acute) Hypokalemia (Acute) Hyponatremia (Acute) Hypotension (Acute) Subjective: Some flatus, no pain - Physical Exam Lungs: Clear to auscultation Abdomen: Soft, Non Tender, Hypoactive Bowel Sounds, Distended Vital Signs Temp Pulse Resp BP Pulse Ox 97.9 F 69 16 150/98 H 97 10/21/18 04:00 10/21/18 04:00 10/21/18 04:00 10/21/18 04:00 10/21/18 04:00 Oxygen Delivery Method Room Air Weight: 117 lb 1.047 oz Body Mass Index (BMI) 20.0 Intake and Output for Last 24 Hours 10/19/18 10/20/18 10/21/18 23:59 23:59 23:59 Intake Total 2430 / 2430 2255 / 2255 600 / 600 Output Total 3100 / 3100 1900 / 1900 1100 / 1100 Balance -670 / -670 355 / 355 -500 / -500 Medical Necessity - Tobacco Use Smoking Status: Former smoker Tobacco Use: Non-smoker Assessment/Plan All Active Problems (Last Updated 10/15/18 @ 19:34 by Jad Jain DO) Ventral incisional hernia (Resolved) SBO (small bowel obstruction) (Acute) ANGELES (acute kidney injury) (Acute) Hypokalemia (Acute) Hyponatremia (Acute) Hypotension (Acute) Will remove ngt and start clears Slow resolution of ileus
[2018-10-21 07:52] VITALS: BP 142/95; PULSE 72; RESP 16; TEMP 36.8; O2SAT 97
--- NOTE | 2018-10-21 09:22 | PCM.PN.HOSP ---
Patient Problems: Active and Suspected Problems (Last Updated 10/15/18 @ 19:34 by Jad Jain DO) SBO (small bowel obstruction) (Acute) ANGELES (acute kidney injury) (Acute) Hypokalemia (Acute) Hyponatremia (Acute) Hypotension (Acute) Vitals/I&O's: Vital Signs Temp Pulse Resp BP Pulse Ox 98.2 F 72 16 142/95 H 97 10/21/18 07:52 10/21/18 07:52 10/21/18 07:52 10/21/18 07:52 10/21/18 07:52 Oxygen Delivery Method Room Air Weight: 53.1 kg Body Mass Index (BMI) 20.0 Intake and Output for Last 24 Hours 10/19/18 10/20/18 10/21/18 23:59 23:59 23:59 Intake Total 2430 / 2430 2255 / 2255 600 / 600 Output Total 3100 / 3100 1900 / 1900 1100 / 1100 Balance -670 / -670 355 / 355 -500 / -500 Current Medications Acetaminophen (Tylenol) 650 mg PO Q6H PRN PRN PRN Reason: pain Dextrose (D50w Syringe) 0 gm IV X1 PRN; Protocol PRN Reason: Hypoglycemia Enoxaparin Sodium (Lovenox) 30 mg SC DAILY@0600 [facility] Last Admin: 10/21/18 05:50 Dose: 30 mg Documented by: Famotidine (Pepcid) 20 mg PO BID [facility] Glucagon () 1 mg IM .X1 PRN PRN Reason: Hypoglycemia Potassium Chloride/Dextrose/Sod Cl (Kcl 20meq In D5.45ns 1000ml) 1,000 mls @ 30 mls/hr IV .[id number] [facility] Morphine Sulfate () 2 mg IV Q3H PRN PRN PRN Reason: Severe pain (7-10/10) Last Admin: 10/16/18 22:10 Dose: 2 mg Documented by: Morphine Sulfate () 4 mg IV Q3H PRN PRN PRN Reason: Severe pain (7-10/10) Ondansetron HCl (Zofran) 4 mg IV Q8H PRN PRN PRN Reason: NAUSEA/VOMITING Last Admin: 10/18/18 07:47 Dose: 4 mg Documented by: Promethazine HCl (Phenergan) 6.25 mg IV Q6H PRN PRN PRN Reason: NAUSEA/VOMITING Last Admin: 10/14/18 17:28 Dose: 6.25 mg Documented by: Sodium Chloride () 5 - 15 ml IV UD PRN PRN Reason: SALINE FLUSH Last Admin: 10/20/18 09:28 Dose: 10 ml Documented by: Throat Lozenges (Cepacol Sore Throat Lozenge) 2 lozenge MUCOUS MEM Q2H PRN PRN PRN Reason: SORE THROAT Last Admin: 10/17/18 14:31 Dose: 2 lozenge Documented by: Medical Necessity - Tobacco Use Smoking Status: Former smoker Tobacco Use: Non-smoker Assessment/Plan All Active Problems (Last Updated 10/15/18 @ 19:34 by Jad Jain DO) Ventral incisional hernia (Resolved) SBO (small bowel obstruction) (Acute) ANGELES (acute kidney injury) (Acute) Hypokalemia (Acute) Hyponatremia (Acute) Hypotension (Acute)
--- NOTE | 2018-10-21 09:29 | PN_ITS ---
Patient Problems: Active and Suspected Problems (Last Updated 10/15/18 @ 19:34 by Jad Jain DO) SBO (small bowel obstruction) (Acute) ANGELES (acute kidney injury) (Acute) Hypokalemia (Acute) Hyponatremia (Acute) Hypotension (Acute) Subjective: Patient is an 82-year-old lady admitted with abdominal pain found to have acute small bowel obstruction secondary to an adhesive band. She underwent Diagnostic laparoscopy with laparoscopic lysis of adhesions and release of small bowel obstruction on 10/16/[address] Diaz Objective: GENERAL: cooperative HEENT: Atraumatic; EYES; Anicteric, NECK; supple, normal thyroid, RESPIRATORY: Diminished to auscultation bilaterally, CARDIOVASCULAR: Regular S1 S2, GI: soft, hypoactive bowel sounds, : No Renal angle tenderness; EXTREMITIES: No edema, no clubbing, no cyanosis. MUSCULOSKELETAL: No Joint Tenderness; NEURO: Awake; no lateralizing signs. SKIN: No Rash PSYCH; Normal affect Vitals/I&O's: Vital Signs Temp Pulse Resp BP Pulse Ox 98.2 F 72 16 142/95 H 97 10/21/18 07:52 10/21/18 07:52 10/21/18 07:52 10/21/18 07:52 10/21/18 07:52 Oxygen Delivery Method Room Air Weight: 53.1 kg Body Mass Index (BMI) 20.0 Intake and Output for Last 24 Hours 10/19/18 10/20/18 10/21/18 23:59 23:59 23:59 Intake Total 2430 / 2430 2255 / 2255 600 / 600 Output Total 3100 / 3100 1900 / 1900 1100 / 1100 Balance -670 / -670 355 / 355 -500 / -500 Current Medications Acetaminophen (Tylenol) 650 mg PO Q6H PRN PRN PRN Reason: pain Dextrose (D50w Syringe) 0 gm IV X1 PRN; Protocol PRN Reason: Hypoglycemia Enoxaparin Sodium (Lovenox) 30 mg SC DAILY@0600 [facility] Last Admin: 10/21/18 05:50 Dose: 30 mg Documented by: Famotidine (Pepcid) 20 mg PO BID [facility] Glucagon () 1 mg IM .X1 PRN PRN Reason: Hypoglycemia Hydralazine HCl (Apresoline Iv) 10 mg IV Q4H PRN PRN PRN Reason: for SBP > 150 Potassium Chloride/Dextrose/Sod Cl (Kcl 20meq In D5.45ns 1000ml) 1,000 mls @ 30 mls/hr IV .[id number] [facility] Morphine Sulfate () 2 mg IV Q3H PRN PRN PRN Reason: Severe pain (7-10/10) Last Admin: 10/16/18 22:10 Dose: 2 mg Documented by: Morphine Sulfate () 4 mg IV Q3H PRN PRN PRN Reason: Severe pain (7-10/10) Ondansetron HCl (Zofran) 4 mg IV Q8H PRN PRN PRN Reason: NAUSEA/VOMITING Last Admin: 10/18/18 07:47 Dose: 4 mg Documented by: Promethazine HCl (Phenergan) 6.25 mg IV Q6H PRN PRN PRN Reason: NAUSEA/VOMITING Last Admin: 10/14/18 17:28 Dose: 6.25 mg Documented by: Sodium Chloride () 5 - 15 ml IV UD PRN PRN Reason: SALINE FLUSH Last Admin: 10/20/18 09:28 Dose: 10 ml Documented by: Throat Lozenges (Cepacol Sore Throat Lozenge) 2 lozenge MUCOUS MEM Q2H PRN PRN PRN Reason: SORE THROAT Last Admin: 10/17/18 14:31 Dose: 2 lozenge Documented by: Medical Necessity - Tobacco Use Smoking Status: Former smoker Tobacco Use: Non-smoker Assessment/Plan All Active Problems (Last Updated 10/15/18 @ 19:34 by Jad Jain DO) Ventral incisional hernia (Resolved) SBO (small bowel obstruction) (Acute) ANGELES (acute kidney injury) (Acute) Hypokalemia (Acute) Hyponatremia (Acute) Hypotension (Acute) Patient is an 82-year-old lady admitted with abdominal pain found to have acute small bowel obstruction secondary to an adhesive band. She underwent Diagnostic laparoscopy with laparoscopic lysis of adhesions and release of small bowel obstruction on 10/16/[address] Diaz 1. Acute small bowel obstruction secondary to an adhesive band. She underwent Diagnostic laparoscopy with laparoscopic lysis of adhesions and release of small bowel obstruction on 10/16/[address] Diaz NG tube was taken out on 10/21/2018: Started on clear liquids 2. Acute kidney injury resolved 3. Essential hypertension patient blood pressure control not optimal added hydralazine as needed 4. DVT prophylaxis SC enoxaparin Active Medications Acetaminophen (Tylenol) 650 mg PO Q6H PRN PRN PRN Reason: pain Dextrose (D50w Syringe) 0 gm IV X1 PRN; Protocol PRN Reason: Hypoglycemia Enoxaparin Sodium (Lovenox) 30 mg SC DAILY@0600 [facility] Last Admin: 10/21/18 05:50 Dose: 30 mg Documented by: Famotidine (Pepcid) 20 mg PO BID [facility] Glucagon () 1 mg IM .X1 PRN PRN Reason: Hypoglycemia Hydralazine HCl (Apresoline Iv) 10 mg IV Q4H PRN PRN PRN Reason: for SBP > 150 Potassium Chloride/Dextrose/Sod Cl (Kcl 20meq In D5.45ns 1000ml) 1,000 mls @ 30 mls/hr IV .[id number] [facility] Morphine Sulfate () 2 mg IV Q3H PRN PRN PRN Reason: Severe pain (7-10/10) Last Admin: 10/16/18 22:10 Dose: 2 mg Documented by: Morphine Sulfate () 4 mg IV Q3H PRN PRN PRN Reason: Severe pain (7-10/10) Ondansetron HCl (Zofran) 4 mg IV Q8H PRN PRN PRN Reason: NAUSEA/VOMITING Last Admin: 10/18/18 07:47 Dose: 4 mg Documented by: Promethazine HCl (Phenergan) 6.25 mg IV Q6H PRN PRN PRN Reason: NAUSEA/VOMITING Last Admin: 10/14/18 17:28 Dose: 6.25 mg Documented by: Sodium Chloride () 5 - 15 ml IV UD PRN PRN Reason: SALINE FLUSH Last Admin: 10/20/18 09:28 Dose: 10 ml Documented by: Throat Lozenges (Cepacol Sore Throat Lozenge) 2 lozenge MUCOUS MEM Q2H PRN PRN PRN Reason: SORE THROAT Last Admin: 10/17/18 14:31 Dose: 2 lozenge Documented by: Code Visit Inpatient E&M: [id number] Subs Hosp L2
[2018-10-21] MEDS: Famotidine 20 MG Tablet PO ×2 (11:31→21:13)
[2018-10-21 14:00] VITALS: BP 134/99; PULSE 72; RESP 16; TEMP 36.6; O2SAT 97
[2018-10-21 20:00] VITALS: BP 124/83; PULSE 73; RESP 18; TEMP 36.5; O2SAT 98
[2018-10-22 02:00] VITALS: BP 143/99; PULSE 64; RESP 18; TEMP 36.8; O2SAT 98
[2018-10-22] MEDS: Enoxaparin 30 MG/0.3 ML Syringe SC (05:24)
--- NOTE | 2018-10-22 06:14 | RAD_ITS ---
STUDY: X-RAY - ABDOMEN/PELVIS REASON FOR EXAM: Female, 82 years old. Abdominal distention and pain. TECHNIQUE: AP supine and upright views of the abdomen and pelvis. COMPARISON: Comparison is made with prior examination dated October 16, 2018. FINDINGS: There is blunting of the left costophrenic angle. The small bowel is not distended at this time. There is evidence of a thickening of the haustral pattern of the transverse colon and descending colon. Colitis should be ruled out. There is no demonstrated free abdominal air. The visualized liver, spleen and kidneys are grossly normal in size and morphology. Normal soft tissue structures. There are diffuse degenerative changes of the visualized lumbar spine. Dextroscoliosis. RAD/Abd Inc Decub and/or Erect IMPRESSION: Thickening of the haustral pattern of the transverse colon and descending colon. Colitis should be ruled out. Electronically Signed: Sterling Hall, at 14:18 EDT , Service support ,
--- NOTE | 2018-10-22 06:15 | PCM.PN.SRG ---
Patient Problems: Active and Suspected Problems (Last Updated 10/15/18 @ 19:34 by Jad Jain DO) SBO (small bowel obstruction) (Acute) ANGELES (acute kidney injury) (Acute) Hypokalemia (Acute) Hyponatremia (Acute) Hypotension (Acute) Objective: Pt comfortable Stool liquid and flatus - Physical Exam Abdomen: Bowel Sounds Present, Soft, Non Tender, Distended Vital Signs Temp Pulse Resp BP Pulse Ox 98.2 F 64 18 143/99 H 98 10/22/18 02:00 10/22/18 02:00 10/22/18 02:00 10/22/18 02:00 10/22/18 02:00 Oxygen Delivery Method Room Air Weight: 117 lb 1.047 oz Body Mass Index (BMI) 20.0 Intake and Output for Last 24 Hours 10/20/18 10/21/18 10/22/18 23:59 23:59 23:59 Intake Total 2255 / 2255 1218 / 1663 445 / 445 Output Total 1900 / 1900 1500 / 1500 Balance 355 / 355 -282 / 163 445 / 445 Medical Necessity - Tobacco Use Smoking Status: Former smoker Tobacco Use: Non-smoker Assessment/Plan All Active Problems (Last Updated 10/15/18 @ 19:34 by Jad Jain DO) Ventral incisional hernia (Resolved) SBO (small bowel obstruction) (Acute) ANGELES (acute kidney injury) (Acute) Hypokalemia (Acute) Hyponatremia (Acute) Hypotension (Acute) Still distended Advance to fulls Check AXR for small or large bowel gas
[2018-10-22 07:38] VITALS: BP 139/88; PULSE 64; RESP 14; TEMP 36.7; O2SAT 99
[2018-10-22] MEDS: Famotidine 20 MG Tablet PO (07:49)
--- NOTE | 2018-10-22 07:50 | PCM.PN.HOSP ---
Patient Problems: Active and Suspected Problems (Last Updated 10/15/18 @ 19:34 by Jad Jain DO) SBO (small bowel obstruction) (Acute) ANGELES (acute kidney injury) (Acute) Hypokalemia (Acute) Hyponatremia (Acute) Hypotension (Acute) Subjective: Patient seen finally had a bowel movement. Diet is being advanced. Objective: GENERAL: cooperative HEENT: Atraumatic; EYES; Anicteric, NECK; supple, normal thyroid, RESPIRATORY: Diminished to auscultation bilaterally, CARDIOVASCULAR: Regular S1 S2, GI: soft, hypoactive bowel sounds, slight distention : No Renal angle tenderness; EXTREMITIES: No edema, no clubbing, no cyanosis. MUSCULOSKELETAL: No Joint Tenderness; NEURO: Awake; no lateralizing signs. SKIN: No Rash PSYCH; Normal affect Vitals/I&O's: Vital Signs Temp Pulse Resp BP Pulse Ox 98.1 F 64 14 139/88 H 99 10/22/18 07:38 10/22/18 07:38 10/22/18 07:38 10/22/18 07:38 10/22/18 07:38 Oxygen Delivery Method Room Air Weight: 53.1 kg Body Mass Index (BMI) 20.0 Intake and Output for Last 24 Hours 10/20/18 10/21/18 10/22/18 23:59 23:59 23:59 Intake Total 2255 / 2255 1218 / 1663 445 / 445 Output Total 1900 / 1900 1500 / 1500 Balance 355 / 355 -282 / 163 445 / 445 Current Medications Acetaminophen (Tylenol) 650 mg PO Q6H PRN PRN PRN Reason: pain Dextrose (D50w Syringe) 0 gm IV X1 PRN; Protocol PRN Reason: Hypoglycemia Enoxaparin Sodium (Lovenox) 30 mg SC DAILY@0600 [facility] Last Admin: 10/22/18 05:24 Dose: 30 mg Documented by: Famotidine (Pepcid) 20 mg PO BID [facility] Last Admin: 10/22/18 07:49 Dose: 20 mg Documented by: Glucagon () 1 mg IM .X1 PRN PRN Reason: Hypoglycemia Hydralazine HCl (Apresoline Iv) 10 mg IV Q4H PRN PRN PRN Reason: for SBP > 150 Potassium Chloride/Dextrose/Sod Cl (Kcl 20meq In D5.45ns 1000ml) 1,000 mls @ 30 mls/hr IV .[id number] [facility] Last Admin: 10/21/18 21:15 Dose: 30 mls/hr Documented by: Morphine Sulfate () 2 mg IV Q3H PRN PRN PRN Reason: Severe pain (7-10/10) Last Admin: 10/16/18 22:10 Dose: 2 mg Documented by: Morphine Sulfate () 4 mg IV Q3H PRN PRN PRN Reason: Severe pain (7-10/10) Ondansetron HCl (Zofran) 4 mg IV Q8H PRN PRN PRN Reason: NAUSEA/VOMITING Last Admin: 10/18/18 07:47 Dose: 4 mg Documented by: Promethazine HCl (Phenergan) 6.25 mg IV Q6H PRN PRN PRN Reason: NAUSEA/VOMITING Last Admin: 10/14/18 17:28 Dose: 6.25 mg Documented by: Sodium Chloride () 5 - 15 ml IV UD PRN PRN Reason: SALINE FLUSH Last Admin: 10/20/18 09:28 Dose: 10 ml Documented by: Throat Lozenges (Cepacol Sore Throat Lozenge) 2 lozenge MUCOUS MEM Q2H PRN PRN PRN Reason: SORE THROAT Last Admin: 10/17/18 14:31 Dose: 2 lozenge Documented by: Medical Necessity - Tobacco Use Smoking Status: Former smoker Tobacco Use: Non-smoker Assessment/Plan All Active Problems (Last Updated 10/15/18 @ 19:34 by Jad Jain DO) Ventral incisional hernia (Resolved) SBO (small bowel obstruction) (Acute) ANGELES (acute kidney injury) (Acute) Hypokalemia (Acute) Hyponatremia (Acute) Hypotension (Acute) Patient is an 82-year-old lady admitted with abdominal pain found to have acute small bowel obstruction secondary to an adhesive band. She underwent Diagnostic laparoscopy with laparoscopic lysis of adhesions and release of small bowel obstruction on 10/16/[address] Diaz 1. Acute small bowel obstruction secondary to an adhesive band. She underwent Diagnostic laparoscopy with laparoscopic lysis of adhesions and release of small bowel obstruction on 10/16/[address] Diaz NG tube was taken out on 10/21/2018: Started on clear liquids ~10/22/18. Patient had a bowel movement diet is being advanced as tolerated 2. Acute kidney injury resolved 3. Essential hypertension patient blood pressure control not optimal added hydralazine as needed 4. DVT prophylaxis SC enoxaparin Active Medications Acetaminophen (Tylenol) 650 mg PO Q6H PRN PRN PRN Reason: pain Dextrose (D50w Syringe) 0 gm IV X1 PRN; Protocol PRN Reason: Hypoglycemia Enoxaparin Sodium (Lovenox) 30 mg SC DAILY@0600 [facility] Last Admin: 10/21/18 05:50 Dose: 30 mg Documented by: Famotidine (Pepcid) 20 mg PO BID [facility] Glucagon () 1 mg IM .X1 PRN PRN Reason: Hypoglycemia Hydralazine HCl (Apresoline Iv) 10 mg IV Q4H PRN PRN PRN Reason: for SBP > 150 Potassium Chloride/Dextrose/Sod Cl (Kcl 20meq In D5.45ns 1000ml) 1,000 mls @ 30 mls/hr IV .[id number] [facility] Morphine Sulfate () 2 mg IV Q3H PRN PRN PRN Reason: Severe pain (7-10/10) Last Admin: 10/16/18 22:10 Dose: 2 mg Documented by: Morphine Sulfate () 4 mg IV Q3H PRN PRN PRN Reason: Severe pain (7-10/10) Ondansetron HCl (Zofran) 4 mg IV Q8H PRN PRN PRN Reason: NAUSEA/VOMITING Last Admin: 10/18/18 07:47 Dose: 4 mg Documented by: Promethazine HCl (Phenergan) 6.25 mg IV Q6H PRN PRN PRN Reason: NAUSEA/VOMITING Last Admin: 10/14/18 17:28 Dose: 6.25 mg Documented by: Sodium Chloride () 5 - 15 ml IV UD PRN PRN Reason: SALINE FLUSH Last Admin: 10/20/18 09:28 Dose: 10 ml Documented by: Throat Lozenges (Cepacol Sore Throat Lozenge) 2 lozenge MUCOUS MEM Q2H PRN PRN PRN Reason: SORE THROAT Last Admin: 10/17/18 14:31 Dose: 2 lozenge Documented by: Code Visit Inpatient E&M: [id number] Subs Hosp L2
--- NOTE | 2018-10-22 09:42 | CASEMGMT ---
RN CM in to follow-up with patient. Patient states she is doing better. Plan is to discharge home when medically ready. Patient does not anticipate any needs at discharge. RN CM to continue to follow this patient and plan for a safe discharge.
[2018-10-22 15:00] VITALS: BP 123/85; PULSE 71; RESP 16; TEMP 36.9; O2SAT 99
--- NOTE | 2018-10-22 17:10 | PCM.PN.BLA ---
Progress Note Pt doing very well Discharge tonight
== END 2018-10-22 18:45 | disposition home or self-care (01) | DRG 336 ==
LOC: ED 08:41 → PCU 13:10 → MS2 10-16 12:58 → MS3 10-19 12:59
PROVIDERS: Internal Medicine; Physician Assistant; Surgery; Emergency Provider Emergency Medicine; Family Provider Internal Medicine; PCP Internal Medicine; Visit Provider Internal Medicine
PROC: 0DN84ZZ Release Small Intestine, Percutaneous Endoscopic Approach (ICD-10-PCS; CPT 49320; principal; 2018-10-16 16:15)
DX: K56.50 Intestinal adhesions [bands], unspecified as to partial versus complete obstruction (principal); N17.9 Acute kidney failure, unspecified; E87.1 Hypo-osmolality and hyponatremia; E86.0 Dehydration; E87.6 Hypokalemia; Z90.49 Acquired absence of other specified parts of digestive tract; Z90.710 Acquired absence of both cervix and uterus; I10 Essential (primary) hypertension
CPT/HCPCS: 36415; 71045; 74018; 74019; 74176; 80048; 80076; 81001; 82962; 83605; 83690; 83735; 85025; 93005; 94640; 97110; 97161; 97166; 97530; 97535; 99284; J7030; J7120; A4216; J2405; J3490

== ENCOUNTER 2023-04-11 10:47 | Inpatient (IN) | payer MEDICARE, SELFPAY ==
[2023-04-11] VITALS (7 sets, daily range): BP systolic 127–148; BP diastolic 95–106; PULSE 67–114; RESP 14–19; TEMP 36.4–36.9; O2SAT 94–98; BMI 19.1
--- NOTE | 2023-04-11 11:20 | EKG12_ITS ---
Test Reason : CP Blood Pressure : / mmHG Vent. Rate : 090 BPM Atrial Rate : 090 BPM P-R Int : 140 ms QRS Dur : 086 ms QT Int : 364 ms P-R-T Axes : 035 -49 -02 degrees QTc Int : 445 ms Sinus rhythm with marked sinus arrhythmia with Premature ventricular complexes or Fusion complexes Left axis deviation Septal infarct , age undetermined Abnormal ECG Confirmed by BRODERICK MCCLOUD, ELINA ([id number]), market editor LEOPOLDO HEATH ([id number]) on 04/12/2023 10:42:20 AM Referred By: Confirmed By:ELINA VILLAFANA MD
--- NOTE | 2023-04-11 11:23 | ED.VIS.DYS ---
HPI <REINALDO Ortega - Last Filed: 04/11/23 14:51> History of Present Illness Chief Complaint: Shortness of Breath Narrative Narrative: Patient presenting today due to shortness of breath that she has had over the past 2 to 3 days. She reports that her symptoms are worse with exertion and she became short of breath just walking to the bathroom today. She reports that she has had a lot of anxiety and has been under a lot of stress as her was recently hospitalized and is now on hospice. She reports a PMH of hypertension and tobacco use. She denies any history of asthma or COPD. She denies fever, chills, coughing, and chest pain. PE Risk Factors: Negative for Cancer, Prior DVT or PE, Recent immobilization, Recent surgery or Recent travel PFSH <REINALDO Ortega - Last Filed: 04/11/23 14:51> [facility] Medical History (Updated 04/11/23 @ 14:51 by REINALDO Ortega) Adult idiopathic generalized osteoporosis ANGELES (acute kidney injury) History of diverticulosis HTN (hypertension) Hypokalemia Hyponatremia Hypotension SBO (small bowel obstruction) Screening for intestinal cancer Ventral incisional hernia Home Medications alendronate 70 mg tablet 70 mg PO QWEEK Bone health 11/14/16 [History Last Taken 04/08/23] calcium carbonate 600 mg calcium (1,500 mg) tablet 1,200 mg PO DAILY Supplement 11/14/16 [History Last Taken 07/24/17] cholecalciferol (vitamin D3) 50 mcg (2,000 unit) capsule 4,000 unit PO DAILY Supplement 11/14/16 [History Last Taken 04/11/23] multivitamin 1 ea PO DAILY Supplement 07/23/17 [History Last Taken 04/11/23] lisinopril 10 mg tablet 10 mg PO DAILY BP 10/14/18 [History Last Taken 04/11/23] Allergy/AdvReac Type Severity Reaction Status Date / Time Latex, Natural Rubber Allergy Mild rash Verified 04/11/23 10:48 Family History Father Diabetes Heart disease Hypertension Other Parkinson disease Surgical History S/P colectomy S/P colonoscopy S/P hysterectomy S/P repair of ventral hernia Social History Smoking Status: Light Smoker (<10/day) ROS <REINALDO Ortega - Last Filed: 04/11/23 14:51> ROS ED Constitutional Constitutional ED: Denies chills or fever(s) Cardiovascular Cardiovascular: Denies chest pain Respiratory/Chest Respiratory/Chest: Reports dyspnea and dyspnea on exertion; Denies cough, tachypnea or wheezing Gastrointestinal Gastrointestinal: Denies abdominal pain, nausea or vomiting Musculoskeletal Musculoskeletal: Denies arthralgias or myalgias Integumentary Denies rash Neurologic Neurologic: Denies weakness EXAM <REINALDO Ortega - Last Filed: 04/11/23 14:51> Physical Exam Const Vital Signs: 04/11/23 10:49 04/11/23 11:20 04/11/23 12:47 Temperature 98.2 F Temperature Source Temporal Pulse Rate 109 H 114 H Respiratory Rate 14 19 H Respiratory Effort Short of Breath Labored Respiratory Depth Normal Respiratory Pattern Tachypnea Blood Pressure 148/100 H 140/106 H Blood Pressure Mean 116 117 Pulse Ox 98 95 Oxygen Delivery Method Room Air Room Air Room Air Positive well nourished, well developed and no apparent distress General Appearance ED: well developed HEENT Reports normocephalic and head/scalp atraumatic Mouth ED: Yes moist mucous membranes normal Eyes PERRL and EOMs intact bilaterally Neck full ROM and supple Chest Wall inspection of chest normal Resp normal respiratory effort and clear to auscultation bilaterally Cardio regular rate and regular rhythm GI soft to palpation, non-tender, non-distended and no masses Back/Spine normal ROM and normal to inspection Extremity normal to inspection and full ROM Neuro oriented x3, CN's II-XII intact bilaterally, moves all extremities, no focal motor deficits and no sensory deficits noted Sensorium / Orientation: awake and alert Psych mental status grossly normal and thought process normal Skin no rashes or lesions noted and no wounds <Dr. Ge Peterson DO - Last Filed: 04/11/23 16:21> Physical Exam Const Vital Signs: 04/11/23 10:49 04/11/23 11:20 04/11/23 12:47 Temperature 98.2 F Temperature Source Temporal Pulse Rate 109 H 114 H Respiratory Rate 14 19 H Respiratory Effort Short of Breath Labored Respiratory Depth Normal Respiratory Pattern Tachypnea Blood Pressure 148/100 H 140/106 H Blood Pressure Mean 116 117 Pulse Ox 98 95 Oxygen Delivery Method Room Air Room Air Room Air [facility] <REINALDO Ortega - Last Filed: 04/11/23 14:51> [facility] Narrative Medical decision making narrative: Patient presenting today with shortness of breath that is worsened with exertion that she has had over the past 2 to 3 days. She denies any history of cardiac or respiratory issues. She is well-appearing and in no acute distress. She is slightly hypertensive and tachycardic at 109 bpm. She is afebrile. Labs will be obtained to rule out leukocytosis, anemia, electrolyte abnormality, and PE. Chest x-ray will be obtained to rule out cardiopulmonary abnormality with bilateral pleural effusions, worse on the left side. Patient does have an elevated white blood cell count, D-dimer elevated, troponin elevated. Given her elevated troponin, cardiology was consulted, I spoke with Dr. Jimenes who recommends starting a heparin drip and giving aspirin. He also recommends obtaining an echocardiogram and giving IV Lasix. He suspects that this is likely occurred on Sunday when her symptoms began. CTA will be obtained to rule out PE. I spoke with the hospitalist, Dr. Champagne and she will be admitted to the hospital in stable condition. She is comfortable with plan. CTA results came back after patient was admitted and shows a 4.84 cm aortic aneurysm, cardiomegaly, left lower lobe pneumonia, and bilateral pleural effusions. Lab Data Attestation: I reviewed the patient's lab results. Lab results narrative: WBC 15.8, D-dimer 1.47,, BUN 19, troponin 1001, BNP 1154.6 Labs: Laboratory Results - last 24 hr 04/11/23 04/11/23 11:30 12:30 WBC 15.8 H RBC 4.36 Hgb 14.0 Hct 43.5 MCV 99.8 H MCH 32.1 H MCHC 32.2 RDW Std Deviation 51.2 H RDW Coeff of Mika 14.1 Plt Count 245 MPV 9.5 Immature Gran % (Auto) 0.600 Neut % (Auto) 83.3 H Lymph % (Auto) 10.0 L [place] % (Auto) 3.7 Eos % (Auto) 2.0 Baso % (Auto) 0.4 Absolute Neuts (auto) 13.2 H Absolute Lymphs (auto) 1.58 Nucleated RBC % 0 PT 14.1 INR 1.1 APTT 31.2 D-Dimer Quant (PE/DVT) 1.47 H* Sodium 138 Potassium 4.0 Chloride 108 H Carbon Dioxide 25.0 Anion Gap 5 BUN 19 H Creatinine 0.98 Estim Creat Clear Calc 33.46 Est GFR (MDRD) Af Amer 69 Est GFR (MDRD) Non-Af 57 L BUN/Creatinine Ratio 19.4 Glucose 149 H Calcium 9.0 Troponin I High Sens 1001 H* B-Natriuretic Peptide 1154.6 H Radiography X-Ray: Read by ED Physician and Read by Radiologist Diagnostic Testing: Clinical Impression(s) from Imaging Studies Chest X-Ray 04/11/23 11:50 IMPRESSION: Mild cardiac megaly with CHF and bibasilar atelectasis and small effusions worse on the left side. Electronically Signed: Sterling Hall MD at 12:24 EST , Chest CTA 04/11/23 12:07 IMPRESSION: Left lower lobe pneumonia. 4.84 cm aneurysm of the ascending aorta 1. The lungs are hyperinflated with diffuse cystic emphysematous changes. Small to moderate-sized bilateral pleural effusions are present. A small amount of pneumonic consolidation is present in the superior segment of the left lower lobe and in the lingula of the left upper lobe. Mild groundglass edema is present in the remaining lung huston. 2. A 4.84 cm aneurysm of the ascending aorta is present. 3. No demonstrated pulmonary embolism or arterial dissection. 4. Mild cardiomegaly Electronically Signed: Jon Solis MD at 14:04 EST , Echocardiogram 04/11/23 12:12 Interpretation Summary The estimated ejection fraction is 30 %. Stage 2 diastolic dysfunction. There are regional wall motion abnormalities as specified. Moderately severe global left ventricular systolic dysfunction. There is moderate biatrial dilatation. Moderate (2+) mitral valve insufficiency. Mild to moderate (1-2+) tricuspid valve insufficiency. Right ventricular systolic pressure estimated to be 47 mmHg. Mild (1+) aortic valve insufficiency. Moderately dilated aortic root. Recommendation: CTA to Assess Ascending Aorta Ordering Physician: Fatoumata Vieira Referring Physician: Deena Baldwin M.D. Performed By: Bee Haney RDCS Initial EKG: Comments: 90 bpm, sinus rhythm with sinus arrhythmia with PVCs, left axis deviation <Dr. Ge Peterson, DO - Last Filed: 04/11/23 16:21> [facility] Narrative Medical decision making narrative: Patient presenting today with shortness of breath that is worsened with exertion that she has had over the past 2 to 3 days. She denies any history of cardiac or respiratory issues. She is well-appearing and in no acute distress. She is slightly hypertensive and tachycardic at 109 bpm. She is afebrile. Labs will be obtained to rule out leukocytosis, anemia, electrolyte abnormality, and PE. Chest x-ray will be obtained to rule out cardiopulmonary abnormality with bilateral pleural effusions, worse on the left side. Patient does have an elevated white blood cell count, D-dimer elevated, troponin elevated. Given her elevated troponin, cardiology was consulted, I spoke with Dr. Jimenes who recommends starting a heparin drip and giving aspirin. He also recommends obtaining an echocardiogram and giving IV Lasix. He suspects that this is likely occurred on Sunday when her symptoms began. CTA will be obtained to rule out PE. I spoke with the hospitalist, Dr. Champagne and she will be admitted to the hospital in stable condition. She is comfortable with plan. CTA results came back after patient was admitted and shows a 4.84 cm aortic aneurysm, cardiomegaly, left lower lobe pneumonia, and bilateral pleural effusions. This patient was seen with a PA/PRODUCT AMBASSADOR Individually assessed they patient including history and physical. I have reviewed everything on the chart that is available and agree with the documentation provided by the PA/PRODUCT AMBASSADOR including discussion about the assessment, treatment plan, discussion, and return precautions. 87-year-old female presenting for evaluation of dyspnea. 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 She states she had a similar episode on Sunday however Sunday she did not have any episodes. She states that again it was on the way home from the facility after seeing her who is not doing well and the dyspnea lasted for hours. Patient had this symptom again today. She does not report any chest pain, pressure. She does not report any sharp or pleuritic pain. This does sound like a cardiac etiology based on her symptoms and history. EKG on my interpretation is sinus rhythm at [address] elevation or depression. It is noted in the room that the patient is having PVCs as well as runs of tachycardic heart rates in the 140s which she did try to catch on EKG. I suspect at this point that the patient likely infarcted over the weekend. CBC returned with a white blood cell count of 15.8. Hemoglobin stable at 14.0 platelets 245. Renal function electrolytes within normal limits. Glucose 149 without anion gap. BNP came back at 1154.6 and high-sensitivity troponin thousand 1. Patient started on heparin drip after speaking with cardiology. They recommended stat echocardiogram which was performed in the ED. Patient was also given aspirin orally and 40 of IV Lasix. Chest x-ray my interpretation shows evidence of CHF. This shows an EF of 30. Patient with no history of CHF the radiologist interprets this and agrees. CTA obtained secondary to high D-dimer shows a right oral effusion 4.84 cm ascending aortic aneurysm without evidence of PE or dissection. It is believed the patient might have an infiltrate based on her CT reading. Discussed with Dr. Jimenes is on-call for cardiology. He states that he will take her to the [facility] to look for blockage. Patient discussed with hospitalist for admission. Impression: 1. leukocytosis 2. NSTEMI 3. New onset CHF 4. Glycemia Lab Data Labs: Laboratory Results - last 24 hr 04/11/23 04/11/23 11:30 12:30 WBC 15.8 H RBC 4.36 Hgb 14.0 Hct 43.5 MCV 99.8 H MCH 32.1 H MCHC 32.2 RDW Std Deviation 51.2 H RDW Coeff of Mika 14.1 Plt Count 245 MPV 9.5 Immature Gran % (Auto) 0.600 Neut % (Auto) 83.3 H Lymph % (Auto) 10.0 L [place] % (Auto) 3.7 Eos % (Auto) 2.0 Baso % (Auto) 0.4 Absolute Neuts (auto) 13.2 H Absolute Lymphs (auto) 1.58 Nucleated RBC % 0 PT 14.1 INR 1.1 APTT 31.2 D-Dimer Quant (PE/DVT) 1.47 H* Sodium 138 Potassium 4.0 Chloride 108 H Carbon Dioxide 25.0 Anion Gap 5 BUN 19 H Creatinine 0.98 Estim Creat Clear Calc 33.46 Est GFR (MDRD) Af Amer 69 Est GFR (MDRD) Non-Af 57 L BUN/Creatinine Ratio 19.4 Glucose 149 H Calcium 9.0 Troponin I High Sens 1001 H* B-Natriuretic Peptide 1154.6 H Radiography Diagnostic Testing: Clinical Impression(s) from Imaging Studies Chest X-Ray 04/11/23 11:50 IMPRESSION: Mild cardiac megaly with CHF and bibasilar atelectasis and small effusions worse on the left side. Electronically Signed: Sterling Hall MD at 12:24 EST , Chest CTA 04/11/23 12:07 IMPRESSION: Left lower lobe pneumonia. 4.84 cm aneurysm of the ascending aorta 1. The lungs are hyperinflated with diffuse cystic emphysematous changes. Small to moderate-sized bilateral pleural effusions are present. A small amount of pneumonic consolidation is present in the superior segment of the left lower lobe and in the lingula of the left upper lobe. Mild groundglass edema is present in the remaining lung huston. 2. A 4.84 cm aneurysm of the ascending aorta is present. 3. No demonstrated pulmonary embolism or arterial dissection. 4. Mild cardiomegaly Electronically Signed: Jon Solis MD at 14:04 EST , Echocardiogram 04/11/23 12:12 Interpretation Summary The estimated ejection fraction is 30 %. Stage 2 diastolic dysfunction. There are regional wall motion abnormalities as specified. Moderately severe global left ventricular systolic dysfunction. There is moderate biatrial dilatation. Moderate (2+) mitral valve insufficiency. Mild to moderate (1-2+) tricuspid valve insufficiency. Right ventricular systolic pressure estimated to be 47 mmHg. Mild (1+) aortic valve insufficiency. Moderately dilated aortic root. Recommendation: CTA to Assess Ascending Aorta Ordering Physician: Fatoumata Vieira Referring Physician: Deena Baldwin M.D. Performed By: Bee Haney RDCS <Dr. Ge Peterson, DO - Last Filed: 04/11/23 16:21> Critical Care Time Critical care time (excluding procedures): 30-74 minutes (32), Including time spent:, Discussing w/Patient &/or Family/Riverboat Master, Discussing w/Consultants, Arranging Admission or Transfer and Performing Direct Patient Care at Bedside Discharge Plan Dx/Rx/DC Orders Clinical Impression: Shortness of breath, Aortic aneurysm, Pleural effusion, Acute non-ST elevation myocardial infarction (NSTEMI) Disposition Disposition: Acute Care [facility] Discharge Date/Time: 04/11/23 14:05
[2023-04-11 11:39] LABS: Absolute Lymphocyte Count 1.58 X10^3/uL (0.83-4.51); Absolute Neutrophil Count 13.2 X10^3/uL (2.0-7.7); Basophil# 0.07 X10^3/uL; Basophil% 0.4 % (0-1); Eosinophil# 0.31 X10^3/uL; Hematocrit 43.5 % (37-47); Lymphocyte # 1.58 X10^3/ul (0.83-4.51); Mean Corp Hgb Conc 32.2 g/dL (32-36); Mean Corpuscular Hgb 32.1 pg (27.0-32.0); Mean Corpuscular Volume 99.8 fL (81-99); Mean Platelet Vol. 9.5 fl (6.2-12.0); Monocyte# 0.59 X10^3/uL; Monocyte% 3.7 % (0-10); NRBC Flagged by Analyzer 0 % (0-5); Neutrophil # 13.17 X10^3/uL (2.7-7.7); Neutrophil % 83.3 % (47-70); Platelet Count 245 K/mm3 (150-450); RBC Distribution Width CV 14.1 % (11.6-14.6); RBC Distribution Width SD 51.2 fl (35.1-43.9); Red Blood Count 4.36 M/mm3 (4.2-5.4); White Blood Count 15.8 K/mm3 (4.4-11.0)
--- NOTE | 2023-04-11 11:50 | RAD_ITS ---
STUDY: X-RAY CHEST REASON FOR EXAM: Female, 87 years old. Shortness of breath TECHNIQUE: PA and lateral views of the chest. COMPARISON: Comparison is made with prior study October 14, 2018. FINDINGS: EKG electrodes are seen. Vascular congestion and mild degree of CHF with bibasilar atelectasis worse on the left side. Small bilateral pleural effusions. Normal size heart. Normal mediastinum and coretta. Normal visualized pulmonary arteries. There is atherosclerotic calcification of the aortic arch with tortuosity. There are diffuse degenerative changes of the visualized thoracic spine. There is degenerative osteoarthritis of the bilateral shoulders. There is no demonstrated abnormality of the visualized soft tissue structures of the upper abdomen. RAD/Chest PA and Lateral IMPRESSION: Mild cardiac megaly with CHF and bibasilar atelectasis and small effusions worse on the left side. Electronically Signed: Sterling Hall MD at 12:24 EST ,
[2023-04-11 11:53] LABS: D-Dimer Quantitative (DVT/PE) 1.47 FEU/ug/m (0.27-0.49)
[2023-04-11 12:05] LABS: Anion Gap 5 (5-15); BUN 19 mg/dL (7-18); BUN/Creat Ratio 19.4 RATIO (10-20); Chloride 108 mmol/L (98-107); Creatinine, Serum 0.98 mg/dL (0.55-1.02); EST Glomerular Filtration Rate 57 mL/min (>60); Est Glom Filt Rate - Afr Amer 69 mL/min (>60); Estimated Creatinine Clearance 33.46 ml/min; Glucose 149 mg/dL (74-106); Sodium Level 138 mmol/L (136-145); Troponin-I HS 1001 pg/mL (3.0-54.0)
--- NOTE | 2023-04-11 12:07 | CT_ITS ---
STUDY: CTA CHEST REASON FOR EXAM: Female, 87 years old. elevated d-dimer RADIATION DOSAGE (If Supplied By Facility): CTDIvol = ( 4.93 ) mGy, DLP = ( 264.30 ) mGycm TECHNIQUE: The examination was performed with the intravenous administration of IV 75mL [id number]-[id number]. Post-processing of the angiographic images was performed, with multiplanar reformation and 3D reconstruction. Individualized dose optimization techniques were used for this CT. COMPARISON: Chest x-ray dated April 11, 2023 FINDINGS: The lungs are hyperinflated with diffuse cystic emphysematous changes. Small to moderate-sized bilateral pleural effusions are present. A small amount of pneumonic consolidation is present in the superior segment of the left lower lobe and in the lingula of the left upper lobe. Mild groundglass edema is present in the remaining lung huston. A 4.84 cm aneurysm of the ascending aorta is present. Normal enhancement of the main pulmonary artery and right and left pulmonary arteries. Normal enhancement of the bilateral peripheral pulmonary arteries. There is no demonstrated pulmonary embolism. There is atherosclerotic calcification of the aortic arch with tortuosity. There is no demonstrated aortic dissection. The heart is mildly enlarged. No pericardial effusion is present. There are calcifications of the coronary arteries. Normal mediastinum. Normal hilar regions. Normal visualized trachea and bronchi. The lungs are well expanded. Normal chest wall structures. There are degenerative changes of thoracic spine. Chronic compression deformity of L1 noted. Limited visualization of the upper abdominal structures reveals no significant abnormalities. The liver appears mildly enlarged. CT/CTA Chest W/WO Contrast IMPRESSION: Left lower lobe pneumonia. 4.84 cm aneurysm of the ascending aorta 1. The lungs are hyperinflated with diffuse cystic emphysematous changes. Small to moderate-sized bilateral pleural effusions are present. A small amount of pneumonic consolidation is present in the superior segment of the left lower lobe and in the lingula of the left upper lobe. Mild groundglass edema is present in the remaining lung huston. 2. A 4.84 cm aneurysm of the ascending aorta is present. 3. No demonstrated pulmonary embolism or arterial dissection. 4. Mild cardiomegaly Electronically Signed: Jon Solis MD at 14:04 EST ,
--- NOTE | 2023-04-11 12:12 | ECHOD_ITS ---
Reason For Study: NSTEMI Procedure This was a 2D Doppler, Color Flow transthoracic echocardiogram. Exam performed portable in ED. Left Ventricle Mildly dilated left ventricle. Moderately severe global left ventricular systolic dysfunction. The estimated ejection fraction is 30 %. Stage 2 diastolic dysfunction. There are regional wall motion abnormalities as specified. Basal anteroseptal: Akinetic. Basal inferoseptal: Hypokinetic. Mid- Anterior : Hypokinetic. Mid-inferoseptal : Hypokinetic. Septal [place] : Akinetic. Inferior [place] : Akinetic. Lateral [place] : Akinetic. [place] : Akinetic. Anterior [place] : Akinetic. Right Ventricle Normal RV size. Normal systolic function. Atria There is moderate biatrial dilatation. Mitral Valve Mild mitral annular calcification. Mild diffuse mitral valve thickening. Moderate (2+) mitral valve insufficiency. Tricuspid Valve Normal tricuspid valve. Mild to moderate (1-2+) tricuspid valve insufficiency. Right ventricular systolic pressure estimated to be 47 mmHg. Aortic Valve Trisinus/trileaflet aortic valve. Mild (1+) aortic valve insufficiency. Pulmonic Valve Normal pulmonic valve. Mild (1+) pulmonic valve insufficiency. Great Vessels Moderately dilated aortic root. Pericardium/Pleural No pericardial effusion. Left pleural effusion. MMode/2D Measurements & Calculations LVIDd: 5.1 cm IVSd: 0.91 cm Ao root diam: 4.6 cm LVIDs: 4.0 cm LVPWd: 1.00 cm RVDd: 3.8 cm FS: 22.0 % LAV(MOD-bp): 76.2 ml LVAd ap4: 25.0 cm2 LVAd ap2: 25.5 cm2 LAV(MOD-bp) Indexed: 50.0 ml/m2 LVLd ap4: 7.2 cm LVLd ap2: 7.1 cm LAV(MOD-sp2): 86.4 ml EDV(MOD-sp4): 69.4 ml EDV(MOD-sp2): 74.7 ml LAV(MOD-sp4): 60.9 ml EDV(sp4-el): 73.6 ml EDV(sp2-el): 78.1 ml LVAs ap4: 19.1 cm2 LVAs ap2: 21.9 cm2 LVLs ap4: 7.1 cm LVLs ap2: 7.0 cm ESV(MOD-sp4): 41.2 ml ESV(MOD-sp2): 52.9 ml ESV(sp4-el): 44.0 ml ESV(sp2-el): 57.6 ml EF(MOD-sp4): 40.7 % EF(MOD-sp2): 29.2 % EF(sp4-el): 40.2 % SV(MOD-sp4): 28.2 ml SV(MOD-sp2): 21.8 ml SV(sp4-el): 29.6 ml LA dimension(2D): 3.6 cm LA A4 area: 21.1 cm2 RA A4 area: 20.8 cm2 TAPSE: 2.4 cm Doppler Measurements & Calculations MV E max twin: 47.8 cm/sec Lat Peak E' Twin: 8.5 cm/sec Med Peak E' Twin: 3.3 cm/sec MV A max twin: 29.9 cm/sec E/E' lat: 5.6 E/E' med: 14.6 MV E/A: 1.6 Ao V2 max: 92.3 cm/sec LV V1 max: 77.5 cm/sec PA V2 max: 45.5 cm/sec Ao max P.4 mmHg LV V1 max P.4 mmHg TR max twin: 281.3 cm/sec TR max P.8 mmHg ECHO/Echo Complete Interpretation Summary The estimated ejection fraction is 30 %. Stage 2 diastolic dysfunction. There are regional wall motion abnormalities as specified. Moderately severe global left ventricular systolic dysfunction. There is moderate biatrial dilatation. Moderate (2+) mitral valve insufficiency. Mild to moderate (1-2+) tricuspid valve insufficiency. Right ventricular systolic pressure estimated to be 47 mmHg. Mild (1+) aortic valve insufficiency. Moderately dilated aortic root. Recommendation: CTA to Assess Ascending Aorta Ordering Physician: Fatoumata Vieira Referring Physician: Deena Baldwin M.D. Performed By: Bee Haney RDCS
--- NOTE | 2023-04-11 12:22 | EKG12_ITS ---
Test Reason : REPEAT Blood Pressure : / mmHG Vent. Rate : 111 BPM Atrial Rate : 111 BPM P-R Int : 164 ms QRS Dur : 086 ms QT Int : 328 ms P-R-T Axes : 056 -54 055 degrees QTc Int : 446 ms Sinus tachycardia Possible Left atrial enlargement Left axis deviation Nonspecific T wave abnormality Abnormal ECG Confirmed by BRODERICK MCCLOUD, ELINA ([id number]), manuscript editor KATERINE MARCOS ([id number]) on 04/13/2023 1:23:30 PM Referred By: Confirmed By:ELINA VILLAFANA MD
[2023-04-11] MEDS: Heparin Injection (Vial) 5,000 UNIT/ML VIAL 3500 UNIT IV (12:49)
[2023-04-11] MEDS: HEPARIN/D5w 25,000 UNITS 25,000 UNITS/250 ML IV.SOLN. 7 UNITS CONT INF (12:50)
[2023-04-11 12:53] LABS: International Normalized Ratio 1.1; Prothrombin Time (Protime)PT. 14.1 SECONDS (11.7-14.9)
[2023-04-11 12:54] LABS: Partial Thromboplast Time 31.2 Seconds (24.1-36.2)
[2023-04-11 13:04] LABS: BNP,B-Type NATRIURETIC PEPTIDE 1154.6 pg/mL (0-100)
[2023-04-11] MEDS: Aspirin 325 MG Tablet PO (13:41)
[2023-04-11] MEDS: Furosemide 40 MG/4 ML Vial IV (13:41)
--- NOTE | 2023-04-11 15:53 | HP.PCM.HOS_ITS ---
HPI - General General Date of Admission: 04/11/23 HPI Narrative STEPHEN PETER, is a 87 F who presents to the hospital with shortness of breath that is steadily been getting worse for the last 2 or 3 days. She has noticed some shortness of breath with activity over the last couple of weeks but she says she has been extremely stressed at home as her has been ill for the last couple of months and recently answered hospice care. She presents to the hospital with a white count of 15.8 but is afebrile. Chest x-ray demonstrated possible CHF but she does not have a history of heart failure. Her troponin was significantly elevated to 1000 without any ischemic changes on her EKG. She was also noticed to have an elevated D-dimer and was sent for a CT scan of her chest which did not demonstrate any PEs but does demonstrate a 4.8 cm aneurysm of the ascending aorta but no signs of dissection. She denies any chest pain or lightheadedness. She was started on a heparin drip for her non-STEMI cardiology was consulted in the ER. [facility] Medical History (Updated 04/11/23 @ 14:51 by REINALDO Ortega) Adult idiopathic generalized osteoporosis ANGELES (acute kidney injury) History of diverticulosis HTN (hypertension) Hypokalemia Hyponatremia Hypotension SBO (small bowel obstruction) Screening for intestinal cancer Ventral incisional hernia Home Medications alendronate 70 mg tablet 70 mg PO QWEEK Bone health 11/14/16 [History Last Taken 04/08/23] calcium carbonate 600 mg calcium (1,500 mg) tablet 1,200 mg PO DAILY Supplement 11/14/16 [History Last Taken 07/24/17] cholecalciferol (vitamin D3) 50 mcg (2,000 unit) capsule 4,000 unit PO DAILY Supplement 11/14/16 [History Last Taken 04/11/23] multivitamin 1 ea PO DAILY Supplement 07/23/17 [History Last Taken 04/11/23] lisinopril 10 mg tablet 10 mg PO DAILY BP 10/14/18 [History Last Taken 04/11/23] Allergy/AdvReac Type Severity Reaction Status Date / Time Latex, Natural Rubber Allergy Mild rash Verified 04/11/23 10:48 Family History Father Diabetes Heart disease Hypertension Other Parkinson disease Surgical History S/P colectomy S/P colonoscopy S/P hysterectomy S/P repair of ventral hernia Social History Smoking Status: Light Smoker (<10/day) ROS Constitutional Constitutional: Denies chills, fatigue, fever(s) or malaise Eyes Eyes: Denies blurry vision ENT HEENT: Denies headache(s) or nasal discharge Cardiovascular Cardiovascular: Denies chest pain, dyspnea on exertion or syncope Respiratory/Chest Respiratory/Chest: Reports shortness of breath at rest and shortness of breath with exertion; Denies cough Gastrointestinal Gastrointestinal: Denies constipation, diarrhea, nausea or vomiting Genitourinary Genitourinary: Denies dysuria Neurologic Neurologic: Denies focal weakness, numbness or tremor(s) Psychiatric Psychiatric: Denies anxiety or depression Vital Signs Vital Signs Vital Signs: 04/11/23 10:49 04/11/23 11:20 04/11/23 12:47 Temperature 98.2 F Temperature Source Temporal Pulse Rate 109 H 114 H Respiratory Rate 14 19 H Respiratory Effort Short of Breath Labored Respiratory Depth Normal Respiratory Pattern Tachypnea Blood Pressure 148/100 H 140/106 H Blood Pressure [BP] Blood Pressure Mean 116 117 Blood Pressure Mean [BP] Blood Pressure Source [BP] Blood Pressure Position [BP] Blood Pressure Location [BP] Pulse Ox 98 95 Oxygen Delivery Method Room Air Room Air Room Air 04/11/23 13:44 04/11/23 14:00 04/11/23 14:09 Temperature 98.0 F 98.5 F Temperature Source Oral Pulse Rate 103 H 105 H 106 H Respiratory Rate 18 18 14 Respiratory Effort Respiratory Depth Respiratory Pattern Blood Pressure 138/101 H 132/101 H Blood Pressure [BP] 142/95 H Blood Pressure Mean 113 111 Blood Pressure Mean [BP] 110 Blood Pressure Source [BP] Monitor Blood Pressure Position [BP] Semi-Fowlers Blood Pressure Location [BP] Left Arm Pulse Ox 95 96 98 Oxygen Delivery Method Room Air Room Air Weight Weight: 110 lb 10.753 oz Body Mass Index (BMI) 19.1 Physical Exam Narrative General: Alert, Oriented x3, Cooperative, No apparent distress HEENT: Atraumatic, PERRLA, EOMI, Normocephalic Oral: Moist Mucosa Neck: Supple, No JVD Lungs: Diminished, Normal air movement, No rhonchi, No wheeze, No rales Cardiovascular: Tachycardic, Regular Rhythm, Normal S1, Normal S2, No murmurs Abdomen: Soft, Non Tender, Non-Distended, No Hepato-splenomegaly Extremities: No edema, Capillary Refill Less than 3 Seconds Skin: No rashes, No breakdown Musculoskeletal: No Tenderness to Palpation of Joints or Extremities Neurological: Cranial nerves II-XII grossly intact, Motor Exam 5/5 strength throughout, Sensory exam intact to light touch and pain Psych/Mental Status: Normal Affect, Appropriate Results Lab / Micro Data 04/11/23 11:30 04/11/23 11:30 Labs: Laboratory Results - last 24 hr 04/11/23 11:30: WBC 15.8 H, RBC 4.36, Hgb 14.0, Hct 43.5, MCV 99.8 H, MCH 32.1 H , MCHC 32.2, RDW Std Deviation 51.2 H, RDW Coeff of Mika 14.1, Plt Count 245, MPV 9.5, Immature Gran % (Auto) 0.600, Neut % (Auto) 83.3 H, Lymph % (Auto) 10.0 L, [place] % (Auto) 3.7, Eos % (Auto) 2.0, Baso % (Auto) 0.4, Absolute Neuts (auto) 13.2 H, Absolute Lymphs (auto) 1.58, Nucleated RBC % 0, D-Dimer Quant (PE/DVT) 1.47 H*, Sodium 138, Potassium 4.0, Chloride 108 H, Carbon Dioxide 25.0, Anion Gap 5, BUN 19 H, Creatinine 0.98, Estim Creat Clear Calc 33.46, Est GFR (MDRD) A f Amer 69, Est GFR (MDRD) Non-Af 57 L, BUN/Creatinine Ratio 19.4, Glucose 149 H, Calcium 9.0, Troponin I High Sens 1001 H* 04/11/23 12:30: PT 14.1, INR 1.1, APTT 31.2, B-Natriuretic Peptide 1154.6 H Micro: Microbiology 04/11/23 12:30 Nasal Secretion SARS-CoV-2 & FLU Antigen (Rapid) - Final Imagaing Radiology Impression Chest X-Ray 04/11/23 11:50 IMPRESSION: Mild cardiac megaly with CHF and bibasilar atelectasis and small effusions worse on the left side. Electronically Signed: Sterling Hall MD at 12:24 EST , Chest CTA 04/11/23 12:07 IMPRESSION: Left lower lobe pneumonia. 4.84 cm aneurysm of the ascending aorta 1. The lungs are hyperinflated with diffuse cystic emphysematous changes. Small to moderate-sized bilateral pleural effusions are present. A small amount of pneumonic consolidation is present in the superior segment of the left lower lobe and in the lingula of the left upper lobe. Mild groundglass edema is present in the remaining lung huston. 2. A 4.84 cm aneurysm of the ascending aorta is present. 3. No demonstrated pulmonary embolism or arterial dissection. 4. Mild cardiomegaly Electronically Signed: Jon Solis MD at 14:04 EST , Echocardiogram 04/11/23 12:12 Interpretation Summary The estimated ejection fraction is 30 %. Stage 2 diastolic dysfunction. There are regional wall motion abnormalities as specified. Moderately severe global left ventricular systolic dysfunction. There is moderate biatrial dilatation. Moderate (2+) mitral valve insufficiency. Mild to moderate (1-2+) tricuspid valve insufficiency. Right ventricular systolic pressure estimated to be 47 mmHg. Mild (1+) aortic valve insufficiency. Moderately dilated aortic root. Recommendation: CTA to Assess Ascending Aorta Ordering Physician: Fatoumata Vieira Referring Physician: Deena Baldwin M.D. Performed By: Bee Haney RDCS Assessment & Plan Assessment/Plan (1) Acute non-ST elevation myocardial infarction (NSTEMI): PLAN: Plan 1. Non-STEMI/ascending aortic aneurysm/HTN ? Will place on a heparin drip and obtain an echocardiogram ? Cardiology is consulted with likely cath tomorrow ? We will place her on blood pressure medication, Coreg and lisinopril the given the addition of Coreg we will lower the dose of her baseline lisinopril from 10 mg to 5 if she tolerates the Coreg can always increase back to her baseline lisinopril ? Will need outpatient monitoring of her aorta 2. Osteoporosis ? Stable ? Continue with her home alendronate DVT: Heparin drip 75 minutes was spent on direct patient care, including documentation as well as chart review and collaboration with colleagues Charges/Coding Visit Charges Inpatient E&M: 74405 Init Hosp L3
--- NOTE | 2023-04-11 16:13 | CON.PCM.CA_ITS ---
Assessment & Plan Assessment/Plan (1) Acute non-ST elevation myocardial infarction (NSTEMI): PLAN: Plan 87-year-old female presented to the emergency department at [facility] With symptoms of shortness of breath evidently the symptoms has been ongoing for the last 3 days and progressively got worse. She did mention that her has been ill for the last couple of months is an she has been exhausted and getting shortness of breath on driving and getting back home. On evaluation in the hospital noted she had abnormal EKG showing evidence of age-indeterminate anterior MO In the LAD distribution And the cardiac biomarker with high sensitive troponins were abnormal Chest x-ray showed evidence of congestive heart failure Patient does not have any active chest pain however she have progressive symptoms of shortness of breath on minimal exertion which gets worse over the last 2 to 3 days. Cardiac care plan recommendation; Patient has a history of hypertension and has been on lisinopril at home 10 mg She denied any allergy Also she had significant family history of CAD. 1. I reviewed the current medication patient has been on treatment with heparin aspirin 2. I reviewed the echocardiogram which showed apical, anteroseptal hypokinesia With severely reduced LV function Ejection fraction is around 30%, moderate to regurgitation and mild to moderate tricuspid gravitation 3. Will plan for cardiac catheterization, I discussed in detail risk and benefit of cardiac catheterization with the patient as well as the family at bedside Also discussed the cardiac care plan with the nursing staff Krystal Jimenes MD,[facility] HPI Consult Data Date of Consult: 04/11/23 HPI Narrative Reason for Consultation: NISTEMI/NST elevation MO HPI Narrative: STEPHEN PETER, is a 87 F who presents [facility] Medical History (Updated 04/11/23 @ 14:51 by REINALDO Ortega) Adult idiopathic generalized osteoporosis ANGELES (acute kidney injury) History of diverticulosis HTN (hypertension) Hypokalemia Hyponatremia Hypotension SBO (small bowel obstruction) Screening for intestinal cancer Ventral incisional hernia Home Medications alendronate 70 mg tablet 70 mg PO QWEEK Bone health 11/14/16 [History Last Taken 04/08/23] calcium carbonate 600 mg calcium (1,500 mg) tablet 1,200 mg PO DAILY Supplement 11/14/16 [History Last Taken 07/24/17] cholecalciferol (vitamin D3) 50 mcg (2,000 unit) capsule 4,000 unit PO DAILY Supplement 11/14/16 [History Last Taken 04/11/23] multivitamin 1 ea PO DAILY Supplement 07/23/17 [History Last Taken 04/11/23] lisinopril 10 mg tablet 10 mg PO DAILY BP 10/14/18 [History Last Taken 04/11/23] Allergy/AdvReac Type Severity Reaction Status Date / Time Latex, Natural Rubber Allergy Mild rash Verified 04/11/23 10:48 Family History Father Diabetes Heart disease Hypertension Other Parkinson disease Surgical History S/P colectomy S/P colonoscopy S/P hysterectomy S/P repair of ventral hernia Social History Smoking Status: Light Smoker (<10/day) Physical Exam Cardio Cardio Narrative: Patient seen and evaluated at bedside Along with the nursing staff. Family were at bedside at time of evaluation cardiac monitor technician showed underlying normal sinus rhythm She does not have any active chest pain at time of evaluation Covid was examination S1-S2 regular Chest examination mildly diminished air entry with mild bilateral basilar rales. Abdomen soft Examination lower extremity no lower extremity edema. Risk Stratification Risk Stratification Applicable: Yes Age >/= 65: Yes >/= 3 CAD Risk Factors (HTN, HLD, DM, family hx of CAD, or current smoker): Yes Aspirin Use in the Past 7 Days: Yes Severe Angina (>/= episodes in 24 hours): No EKG ST Changes >/= 0.5mm: Yes Positive Cardiac Marker: Yes BETZAIDA Risk Stratification Score: 5 BETZAIDA % Risk: 25% Risk Objective Data Vital Signs: Vital Signs Temp Pulse Resp BP Pulse Ox O2 Del Method 98.5 F 106 H 14 142/95 H 98 Room Air 04/11/23 14:09 04/11/23 14:09 04/11/23 14:09 04/11/23 14:09 04/11/23 14:09 04/11/23 14:09 Oxygen Delivery Method Room Air Weight: 110 lb 10.753 oz Body Mass Index (BMI) 19.1 Intake & Output: Intake and Output for Last 24 Hours 04/09/23 04/10/23 04/11/23 23:59 23:59 23:59 Intake Total 150 / 150 Output Total 600 / 600 Balance -450 / -450 Lab / Micro Data 04/11/23 11:30 04/11/23 11:30 Labs: Laboratory Results - last 24 hr 04/11/23 11:30: WBC 15.8 H, RBC 4.36, Hgb 14.0, Hct 43.5, MCV 99.8 H, MCH 32.1 H , MCHC 32.2, RDW Std Deviation 51.2 H, RDW Coeff of Mika 14.1, Plt Count 245, MPV 9.5, Immature Gran % (Auto) 0.600, Neut % (Auto) 83.3 H, Lymph % (Auto) 10.0 L, [place] % (Auto) 3.7, Eos % (Auto) 2.0, Baso % (Auto) 0.4, Absolute Neuts (auto) 13.2 H, Absolute Lymphs (auto) 1.58, Nucleated RBC % 0, D-Dimer Quant (PE/DVT) 1.47 H*, Sodium 138, Potassium 4.0, Chloride 108 H, Carbon Dioxide 25.0, Anion Gap 5, BUN 19 H, Creatinine 0.98, Estim Creat Clear Calc 33.46, Est GFR (MDRD) Af Amer 69, Est GFR (MDRD) Non-Af 57 L, BUN/Creatinine Ratio 19.4, Glucose 149 H , Calcium 9.0, Troponin I High Sens 1001 H* 04/11/23 12:30: PT 14.1, INR 1.1, APTT 31.2, B-Natriuretic Peptide 1154.6 H Micro: Microbiology 04/11/23 12:30 Nasal Secretion SARS-CoV-2 & FLU Antigen (Rapid) - Final Cardiology Labs/Tests 04/11/23 11:30: WBC 15.8 H, RBC 4.36, Hgb 14.0, Hct 43.5, MCV 99.8 H, MCH 32.1 H , MCHC 32.2, Plt Count 245, MPV 9.5, Immature Gran % (Auto) 0.600, Neut % (Auto) 83.3 H, Lymph % (Auto) 10.0 L, [place] % (Auto) 3.7, Eos % (Auto) 2.0, Baso % (Auto) 0.4, Absolute Neuts (auto) 13.2 H, Nucleated RBC % 0, D-Dimer Quant (PE/DVT) 1.47 H*, Sodium 138, Potassium 4.0, Chloride 108 H, Carbon Dioxide 25.0, Anion Gap 5, BUN 19 H, Creatinine 0.98, Est GFR (MDRD) Af Amer 69, Est GFR (MDRD) Non-Af 57 L, BUN/Creatinine Ratio 19.4, Glucose 149 H, Calcium 9.0 04/11/23 12:30: PT 14.1, INR 1.1, APTT 31.2, B-Natriuretic Peptide 1154.6 H Rhythm: EKG: ECHO: Stress Test: Cardiac Cath: PCI: CT Surgery: Holter monitor: EPS: PPM: CXR: Chest CT Scan: Radiography Diagnostic Testing: Radiology Impression Chest X-Ray 04/11/23 11:50 IMPRESSION: Mild cardiac megaly with CHF and bibasilar atelectasis and small effusions worse on the left side. Electronically Signed: Sterling Hall MD at 12:24 EST , Chest CTA 04/11/23 12:07 IMPRESSION: Left lower lobe pneumonia. 4.84 cm aneurysm of the ascending aorta 1. The lungs are hyperinflated with diffuse cystic emphysematous changes. Small to moderate-sized bilateral pleural effusions are present. A small amount of pneumonic consolidation is present in the superior segment of the left lower lobe and in the lingula of the left upper lobe. Mild groundglass edema is present in the remaining lung huston. 2. A 4.84 cm aneurysm of the ascending aorta is present. 3. No demonstrated pulmonary embolism or arterial dissection. 4. Mild cardiomegaly Electronically Signed: Jon Solis MD at 14:04 EST , Echocardiogram 04/11/23 12:12 Interpretation Summary The estimated ejection fraction is 30 %. Stage 2 diastolic dysfunction. There are regional wall motion abnormalities as specified. Moderately severe global left ventricular systolic dysfunction. There is moderate biatrial dilatation. Moderate (2+) mitral valve insufficiency. Mild to moderate (1-2+) tricuspid valve insufficiency. Right ventricular systolic pressure estimated to be 47 mmHg. Mild (1+) aortic valve insufficiency. Moderately dilated aortic root. Recommendation: CTA to Assess Ascending Aorta Ordering Physician: Fatoumata Vieira Referring Physician: Deena Baldwin M.D. Performed By: Bee Haney RDCS
[2023-04-11 19:18] LABS: Partial Thromboplast Time 86.1 Seconds (24.1-36.2)
[2023-04-11] MEDS: Carvedilol 3.125 MG TABLET PO (22:09)
[2023-04-12] VITALS (14 sets, daily range): BP systolic 101–150; BP diastolic 74–96; PULSE 67–98; RESP 14–16; TEMP 36.2–37; O2SAT 91–98
[2023-04-12 05:08] LABS: Absolute Lymphocyte Count 3.43 X10^3/uL (0.83-4.51); Absolute Neutrophil Count 6.3 X10^3/uL (2.0-7.7); Basophil# 0.08 X10^3/uL; Basophil% 0.8 % (0-1); Eosinophil# 0.07 X10^3/uL; Eosinophils% 0.7 % (0-5); Hematocrit 40.1 % (37-47); Hemoglobin 13.6 g/dL (12.0-15.0); Lymphocyte # 3.43 X10^3/ul (0.83-4.51); Lymphocyte % 32.3 % (19-41); Mean Corp Hgb Conc 33.9 g/dL (32-36); Mean Corpuscular Hgb 32.6 pg (27.0-32.0); Mean Corpuscular Volume 96.2 fL (81-99); Mean Platelet Vol. 10.2 fl (6.2-12.0); Monocyte# 0.68 X10^3/uL; Monocyte% 6.4 % (0-10); NRBC Flagged by Analyzer 0 % (0-5); Neutrophil # 6.32 X10^3/uL (2.7-7.7); Neutrophil % 59.3 % (47-70); Platelet Count 263 K/mm3 (150-450); RBC Distribution Width CV 14.3 % (11.6-14.6); RBC Distribution Width SD 49.9 fl (35.1-43.9); Red Blood Count 4.17 M/mm3 (4.2-5.4); White Blood Count 10.6 K/mm3 (4.4-11.0)
[2023-04-12 05:20] LABS: Partial Thromboplast Time 46.9 Seconds (24.1-36.2)
[2023-04-12 05:30] LABS: Anion Gap 10 (5-15); BUN 19 mg/dL (7-18); BUN/Creat Ratio 24.4 RATIO (10-20); Calcium,Total 8.3 mg/dL (8.5-10.1); Chloride 108 mmol/L (98-107); Creatinine, Serum 0.78 mg/dL (0.55-1.02); EST Glomerular Filtration Rate 75 mL/min (>60); Est Glom Filt Rate - Afr Amer 91 mL/min (>60); Glucose 112 mg/dL (74-106); Potassium 3.5 mmol/L (3.5-5.1); Sodium Level 142 mmol/L (136-145)
--- NOTE | 2023-04-12 05:55 | EKG12_ITS ---
Test Reason : AM EKG Blood Pressure : / mmHG Vent. Rate : 079 BPM Atrial Rate : 079 BPM P-R Int : 150 ms QRS Dur : 086 ms QT Int : 440 ms P-R-T Axes : 050 -51 243 degrees QTc Int : 504 ms Sinus rhythm with marked sinus arrhythmia with occasional Premature ventricular complexes Left axis deviation Cannot rule out Anteroseptal infarct , age undetermined T wave abnormality, consider lateral ischemia Abnormal ECG When compared with ECG of 11-APR-2023 12:22, MANUAL COMPARISON REQUIRED, DATA IS UNCONFIRMED Confirmed by BRODERICK MCCLOUD, ELNIA ([id number]), editor trade journal KATERINE MARCOS ([id number]) on 04/13/2023 5:50:30 AM Referred By: CRYSTAL Confirmed By:ELINA VILLAFANA MD
[2023-04-12] MEDS: Lisinopril 5 MG Tablet PO (08:19)
[2023-04-12] MEDS: Carvedilol 3.125 MG TABLET PO ×2 (08:19→20:08)
--- NOTE | 2023-04-12 09:49 | CASEMGMT ---
Insurance review for hospitals In-network with?[employer] insurance if transfer is recommended is as follows:. [facility], [facility], [facility], [facility], [facility], [facility], [facility] ([facility]), [facility], [facility], and . Mickie Mcclendon, Discharge Planning Asst.
--- NOTE | 2023-04-12 10:45 | PN.HOSP_ITS ---
Subjective Subjective Continues to endorse some shortness of breath but still denies any chest pain Objective Data Objective Data Vital Signs: Vital Signs Temp Pulse Resp BP Pulse Ox O2 Del Method 98.6 F 95 14 132/96 H 94 Room Air 04/12/23 08:17 04/12/23 08:17 04/12/23 08:17 04/12/23 08:17 04/12/23 08:17 04/12/23 08:17 Oxygen Delivery Method Room Air Weight: 110 lb 10.753 oz Body Mass Index (BMI) 19.1 Intake & Output: Intake and Output for Last 24 Hours 04/11/23 04/12/23 04/13/23 03:59 03:59 03:59 Intake Total 211.48 / 211.48 476.42 / 476.42 Output Total 1400 / 1400 100 / 100 Balance -1188.52 / -1188.52 376.42 / 376.42 Lab / Micro Data 04/12/23 04:10 04/12/23 04:10 Labs: Laboratory Results - last 24 hr 04/11/23 11:30: WBC 15.8 H, RBC 4.36, Hgb 14.0, Hct 43.5, MCV 99.8 H, MCH 32.1 H , MCHC 32.2, RDW Std Deviation 51.2 H, RDW Coeff of Mika 14.1, Plt Count 245, MPV 9.5, Immature Gran % (Auto) 0.600, Neut % (Auto) 83.3 H, Lymph % (Auto) 10.0 L, [place] % (Auto) 3.7, Eos % (Auto) 2.0, Baso % (Auto) 0.4, Absolute Neuts (auto) 13.2 H, Absolute Lymphs (auto) 1.58, Nucleated RBC % 0, D-Dimer Quant (PE/DVT) 1.47 H*, Sodium 138, Potassium 4.0, Chloride 108 H, Carbon Dioxide 25.0, Anion Gap 5, BUN 19 H, Creatinine 0.98, Estim Creat Clear Calc 33.46, Est GFR (MDRD) Af Amer 69, Est GFR (MDRD) Non-Af 57 L, BUN/Creatinine Ratio 19.4, Glucose 149 H , Calcium 9.0, Troponin I High Sens 1001 H* 04/11/23 12:30: PT 14.1, INR 1.1, APTT 31.2, B-Natriuretic Peptide 1154.6 H 04/11/23 18:55: APTT 86.1 H 04/12/23 04:10: WBC 10.6, RBC 4.17 L, Hgb 13.6, Hct 40.1, MCV 96.2, MCH 32.6 H, MCHC 33.9 D, RDW Std Deviation 49.9 H, RDW Coeff of Mika 14.3, Plt Count 263, MPV 10.2, Immature Gran % (Auto) 0.500, Neut % (Auto) 59.3, Lymph % (Auto) 32.3, [place] % (Auto) 6.4, Eos % (Auto) 0.7, Baso % (Auto) 0.8, Absolute Neuts (auto) 6.3, Absolute Lymphs (auto) 3.43, Nucleated RBC % 0, APTT 46.9 H, Sodium 142, Potassium 3.5, Chloride 108 H, Carbon Dioxide 24.0, Anion Gap 10, BUN 19 H, Creatinine 0.78, Estim Creat Clear Calc 32.60, Est GFR (MDRD) Af Amer 91, Est GFR (MDRD) Non-Af 75, BUN/Creatinine Ratio 24.4 H, Glucose 112 H, Calcium 8.3 L Micro: Microbiology 04/11/23 12:30 Nasal Secretion SARS-CoV-2 & FLU Antigen (Rapid) - Final Radiography Diagnostic Testing: Radiology Impression Chest X-Ray 04/11/23 11:50 IMPRESSION: Mild cardiac megaly with CHF and bibasilar atelectasis and small effusions worse on the left side. Electronically Signed: Sterling Hall MD at 12:24 EST , Chest CTA 04/11/23 12:07 IMPRESSION: Left lower lobe pneumonia. 4.84 cm aneurysm of the ascending aorta 1. The lungs are hyperinflated with diffuse cystic emphysematous changes. Small to moderate-sized bilateral pleural effusions are present. A small amount of pneumonic consolidation is present in the superior segment of the left lower lobe and in the lingula of the left upper lobe. Mild groundglass edema is present in the remaining lung huston. 2. A 4.84 cm aneurysm of the ascending aorta is present. 3. No demonstrated pulmonary embolism or arterial dissection. 4. Mild cardiomegaly Electronically Signed: Jon Solis MD at 14:04 EST Reading Location ID and State: [address] [place] [address] , Service support , Echocardiogram 04/11/23 12:12 Interpretation Summary The estimated ejection fraction is 30 %. Stage 2 diastolic dysfunction. There are regional wall motion abnormalities as specified. Moderately severe global left ventricular systolic dysfunction. There is moderate biatrial dilatation. Moderate (2+) mitral valve insufficiency. Mild to moderate (1-2+) tricuspid valve insufficiency. Right ventricular systolic pressure estimated to be 47 mmHg. Mild (1+) aortic valve insufficiency. Moderately dilated aortic root. Recommendation: CTA to Assess Ascending Aorta Ordering Physician: Fatoumata Vieira Referring Physician: Deena Baldwin M.D. Performed By: Bee Haney RDCS Physical Exam Narrative General: Alert, Oriented x3, Cooperative, No apparent distress HEENT: Atraumatic, PERRLA, EOMI, Normocephalic Oral: Moist Mucosa Neck: Supple, No JVD Lungs: Diminished, Normal air movement, No rhonchi, No wheeze, No rales Cardiovascular: Tachycardic, Regular Rhythm, Normal S1, Normal S2, No murmurs Abdomen: Soft, Non Tender, Non-Distended, No Hepato-splenomegaly Extremities: No edema, Capillary Refill Less than 3 Seconds Skin: No rashes, No breakdown Musculoskeletal: No Tenderness to Palpation of Joints or Extremities Neurological: Cranial nerves II-XII grossly intact, Motor Exam 5/5 strength throughout, Sensory exam intact to light touch and pain Psych/Mental Status: Normal Affect, Appropriate Assessment & Plan Assessment/Plan (1) Acute non-ST elevation myocardial infarction (NSTEMI): PLAN: Plan 1. Non-STEMI with acute combined systolic and diastolic CHF/ascending aortic aneurysm/HTN ? Will place on a heparin drip ? Echocardiogram demonstrated a reduced EF to 30% with stage II diastolic dysfunction and RVSP of 47 mmHg. Will await cardiac cath results ? Cardiology is consulted. ? We will place her on blood pressure medication, Coreg and lisinopril the given the addition of Coreg we will lower the dose of her baseline lisinopril from 10 mg to 5 if she tolerates the Coreg can always increase back to her baseline lisinopril ? Will need outpatient monitoring of her aorta 2. Osteoporosis ? Stable ? Continue with her home alendronate DVT: Heparin drip Charges/Coding Visit Charges Inpatient E&M: 98325 Subs Hosp L2
[2023-04-12 11:01] LABS: Troponin-I HS 919 pg/mL (3.0-54.0)
--- NOTE | 2023-04-12 12:06 | PCM.OP.PRO ---
Procedure Report Date of Procedure: 04/12/23 Left heart catheterization; 1. Moderate sedation 2. Selective left cholangiography 3. Selective right cholangiography 4. Measurement of LVEDP 5. Left ventriculogram/LVG 6. Placement of TR band to close the right radial artery arteriotomy site. Consent; Risk and benefit of procedure explained in detail patient elected to proceed informed consent obtained. Access; 6 Chinese sheath placed in the right radial artery Medication used in the Animal Humane Agent Supervisor; 1. Cocktail of 3000 units of IV heparin and 100 mcg of nitroglycerin 2. Moderate sedation using 50 mcg entanyl and 1 mg of Versed. Preprocedure diagnosis 87-year-old patient presented with symptoms of shortness of breath which have been ongoing For the last 3 to 4 days prior to presenting to the hospital when symptoms of shortness of breath become progressively worse Noted she had change in the EKG with evidence of a Q wave noted in the anterior lead V1 to V3. Patient has echocardiogram which showed severe LV dysfunction with ejection fraction in the range of 2530%, moderate mitral regurgitation, mild to moderate tricuspid gravitation Based on her clinical presentation she underwent cardiac catheterization today Procedure in detail patient brought to the Animal [employer] Agent Supervisor in fasting state Access obtained from the right radial artery We proceed with 5 Chinese JL 3.5 advanced sending aorta cannulated the left main Following this the catheter exchanged for 5 Chinese JR4 and cannulated the RCA Same catheter which is 5 Chinese JR4 was used to cross the aortic valve placed in the mid ventricle Live ventriculogram obtained 30 degree out of projection Following this a pullback pressure was performed Following this all angiographic views were studied Findings hemodynamic Large area of anterior apical hypokinesia Ejection fraction the range of 25-30% No systolic gradient across aortic valve. LVEDP measuring around 16 mmHg. Coronary angiography 1. Left main is calcified with extension of calcification into the LAD and left circumflex The left main coronary artery had nonobstructive sclerosis of around 30%/mid left main 2. The LAD is occluded at the midportion after the first diagonal branch which is 100% The diagonal branch had a proximal lesion which is diffuse atherosclerosis of around 60?70 3. The left circumflex as well as calcified and moderate to large in size with a proximal lesion of around 60-70% 4. RCA is a large dominant with diffuse atherosclerosis of the distal RCA which is calcified of around 70% Collateral was noted from the RBD branches to the LAD. 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 She has been on medical therapy and she has been stable clinically no complication in the Animal [employer] Agent Supervisor Krystal Jimenes MD,FACC,[facility]
[2023-04-12 12:31] LABS: Partial Thromboplast Time 152.3 Seconds (24.1-36.2)
--- NOTE | 2023-04-12 20:45 | NURSING ---
Report called to RN at [facility] [phone].
--- NOTE | 2023-04-13 16:09 | DS.PCM_ITS ---
Providers Date of Admission: 04/11/23 Date of Discharge: 04/12/23 Primary Care Physician: Dr. Deena Baldwin MD Reason For Visit: NSTEMI VS PE Diagnosis Discharge Diagnosis (1) Acute non-ST elevation myocardial infarction (NSTEMI): Status: Acute Code(s): I21.4 - Non-ST elevation (NSTEMI) myocardial infarction Medications at Discharge Home Medications alendronate 70 mg tablet 70 mg PO QWEEK Bone health 11/14/16 calcium carbonate 600 mg calcium (1,500 mg) tablet 1,200 mg PO DAILY Supplement 11/14/16 cholecalciferol (vitamin D3) 50 mcg (2,000 unit) capsule 4,000 unit PO DAILY Supplement 11/14/16 multivitamin 1 ea PO DAILY Supplement 07/23/17 lisinopril 10 mg tablet 10 mg PO DAILY BP 10/14/18 Hospital Course Operations None Procedures 2-D Echocardiogram and Cardiac catheterization Summary of Care Provided Minutes Spent on Discharge: 35 Hospital Course: Per HPI: STEPHEN PETER, is a 87 F who presents to the hospital with shortness of breath that is steadily been getting worse for the last 2 or 3 days. She has noticed some shortness of breath with activity over the last couple of weeks but she says she has been extremely stressed at home as her has been ill for the last couple of months and recently answered hospice care. She presents to the hospital with a white count of 15.8 but is afebrile. Chest x-ray demonstrated possible CHF but she does not have a history of heart failure. Her troponin was significantly elevated to 1000 without any ischemic changes on her EKG. She was also noticed to have an elevated D-dimer and was sent for a CT scan of her chest which did not demonstrate any PEs but does demonstrate a 4.8 cm aneurysm of the ascending aorta but no signs of dissection. She denies any chest pain or lightheadedness. She was started on a heparin drip for her non- STEMI cardiology was consulted in the ER. Hospital Course: 1. Non-STEMI with acute combined systolic and diastolic CHF/ascending aortic aneurysm/HTN?87-year-old female presented from home with shortness of breath, no chest pain however initial troponin was elevated so she was started on a heparin drip and cardiology was consulted. She proceeded with a cardiac catheterization which demonstrated an LAD occlusion at the midportion of the first diagonal branch that was 100% occluded, the diagonal branch had a proximal lesion of 60 to 70% occlusion the left circumflex was calcified with proximal lesion of around 60 to 70% and the RCA was dominant and with a calcified distal lesion of 70%. Cardiology felt that she would be better served at a tertiary center for evaluation of possible CABG versus high risk stenting. She did have an echocardiogram which demonstrated an EF of 25 to 30% with stage II diastolic dysfunction and an RVSP of 47 mmHg. While here in the hospital she was started on Coreg and continued on her lisinopril. Cardiology assisting with transfer and she was discharged on 04/12/2023 to [facility]. Weight / BMI Weight Weight: 110 lb 10.753 oz Body Mass Index (BMI) 19.1 ABG / Lab / Microbiology Data 04/12/23 04:10 04/12/23 04:10 Microbiology: Microbiology 04/11/23 12:30 Nasal Secretion SARS-CoV-2 & FLU Antigen (Rapid) - Final Meaningful Use Info Meaningful Use Diagnoses (Choose all that apply): None applicable Discharge Plan Admission Admit Date/Time: 04/11/23 12:52 Attending Provider: Brian Champagne Primary Care Provider: Deena Baldwin Discharge Orders/Prescriptions Prescriptions: No Action alendronate 70 MG tablet 70 mg PO QWEEK Patient Comments: takes on Sunday calcium carbonate 600 MG tablet 1,200 mg PO DAILY Hold Instructions: Ordered cholecalciferol (vitamin D3) 2,000 UNIT capsule 4,000 unit PO DAILY multivitamin 1 EACH tablet 1 ea PO DAILY lisinopril 10 MG tablet 10 mg PO DAILY Referrals / Follow Up: Deena Baldwin MD [Primary Care Provider] - Disposition Disposition (needs filled in before D/C Order can be placed): Acute Care Hospital Charges/Coding Visit Charges Inpatient E&M: 45998 Disch Hosp >30min
== END 2023-04-12 23:30 | disposition short-term general hospital (02) | DRG 280 ==
LOC: ED 13:00 → PCU 13:19
PROVIDERS: Physician Assistant; Physician Assistant Medical; Admitting Provider Family Medicine; Emergency Provider Student in an Organized Health Care Education/Training Program; PCP Internal Medicine; Visit Provider Family Medicine
DX: I21.4 Non-ST elevation (NSTEMI) myocardial infarction (principal); I50.41 Acute combined systolic (congestive) and diastolic (congestive) heart failure; I11.0 Hypertensive heart disease with heart failure; I71.21 Aneurysm of the ascending aorta, without rupture; I25.10 Atherosclerotic heart disease of native coronary artery without angina pectoris; F41.9 Anxiety disorder, unspecified; F17.200 Nicotine dependence, unspecified, uncomplicated; I49.3 Ventricular premature depolarization; M81.0 Age-related osteoporosis without current pathological fracture; Z79.899 Other long term (current) drug therapy
CPT/HCPCS: 36415; 71046; 71275; 80048; 83880; 84484; 85025; 85379; 85610; 85730; 87428; 93005; 93306; 93458; 99152; 99153; 99285; Q9967; A4216; C1769; C1894; J1940

== ENCOUNTER 2024-03-06 18:04 | Inpatient (IN) | payer MEDICARE, SELFPAY ==
[2024-03-06 18:06] VITALS: BP 117/74; PULSE 75; RESP 16; TEMP 36.3; O2SAT 97
[2024-03-06] MEDS: Acetaminophen 500 MG Tablet 1000 MG PO (23:06)
[2024-03-06] MEDS: Senna/Docusate Sodium 1 Tablet 2 TABLET PO (23:07)
[2024-03-06 23:08] VITALS: BP 107/74; PULSE 78
[2024-03-06] MEDS: Metoprolol Tartrate 25 MG Tablet 12.5 MG PO (23:08)
[2024-03-06] MEDS: Aspirin 81 MG TAB.CHEW PO (23:09)
[2024-03-06] MEDS: Atorvastatin Calcium 40 MG Tablet PO (23:09)
[2024-03-07 05:55] LABS: Absolute Lymphocyte Count 2.15 X10^3/uL (0.83-4.51); Absolute Neutrophil Count 4.6 X10^3/uL (2.0-7.7); Basophil# 0.04 X10^3/uL; Basophil% 0.5 % (0-1); Eosinophil# 0.12 X10^3/uL; Eosinophils% 1.5 % (0-5); Hematocrit 26.8 % (37-47); Lymphocyte # 2.15 X10^3/ul (0.83-4.51); Lymphocyte % 27.6 % (19-41); Mean Corp Hgb Conc 33.6 g/dL (32-36); Mean Corpuscular Hgb 33.2 pg (27.0-32.0); Mean Corpuscular Volume 98.9 fL (81-99); Mean Platelet Vol. 9.1 fl (6.2-12.0); Monocyte# 0.78 X10^3/uL; NRBC Flagged by Analyzer 0 % (0-5); Neutrophil # 4.61 X10^3/uL (2.7-7.7); Neutrophil % 59.2 % (47-70); Platelet Count 278 K/mm3 (150-450); RBC Distribution Width CV 15.8 % (11.6-14.6); RBC Distribution Width SD 54.3 fl (35.1-43.9); Red Blood Count 2.71 M/mm3 (4.2-5.4); White Blood Count 7.8 K/mm3 (4.4-11.0)
[2024-03-07 06:19] LABS: Anion Gap 5 (5-15); BUN 17 mg/dL (7-18); BUN/Creat Ratio 25.8 RATIO (10-20); Calcium,Total 8.4 mg/dL (8.5-10.1); Chloride 108 mmol/L (98-107); Creatinine, Serum 0.66 mg/dL (0.55-1.02); EST Glomerular Filtration Rate 91 mL/min (>60); Est Glom Filt Rate - Afr Amer 110 mL/min (>60); Glucose 96 mg/dL (74-106); Sodium Level 139 mmol/L (136-145)
[2024-03-07] MEDS: Acetaminophen 500 MG Tablet 1000 MG PO ×3 (06:22→20:36)
[2024-03-07 09:10] VITALS: BP 106/70; PULSE 73; RESP 16; TEMP 36.1
[2024-03-07 09:14] VITALS: PULSE 73
[2024-03-07] MEDS: Ferrous Sulfate 325 MG Tablet PO (09:14)
[2024-03-07] MEDS: Aspirin 81 MG TAB.CHEW PO ×2 (09:14→20:36)
[2024-03-07] MEDS: Metoprolol Tartrate 25 MG Tablet 12.5 MG PO ×2 (09:14→20:37)
[2024-03-07] MEDS: Senna/Docusate Sodium 1 Tablet 2 TABLET PO ×2 (09:16→20:37)
[2024-03-07] MEDS: Clopidogrel Bisulfate 75 MG Tablet PO (09:16)
[2024-03-07] MEDS: Tuberculin,Purif.prot.deriv. 50 TU/ML Vial 0.1 ML ID (09:16)
[2024-03-07] MEDS: Cholecalciferol (VIT D3) 25 MCG TABLET (1,000 UNITS) PO (09:16)
[2024-03-07] MEDS: traMADol 50 MG Tablet PO (11:50)
[2024-03-07] MEDS: Ensure Plus High Protein 120 ML LIQUID PO (16:43)
[2024-03-07 20:37] VITALS: BP 106/66; PULSE 66
[2024-03-07] MEDS: Atorvastatin Calcium 40 MG Tablet PO (20:37)
[2024-03-07 20:40] VITALS: PULSE 16; RESP 16
[2024-03-08] MEDS: traMADol 50 MG Tablet PO ×2 (01:01→11:47)
[2024-03-08] MEDS: Acetaminophen 500 MG Tablet 1000 MG PO ×3 (05:59→22:52)
[2024-03-08] MEDS: Ensure Plus High Protein 120 ML LIQUID PO ×3 (05:59→17:37)
[2024-03-08 08:47] VITALS: BP 100/64; PULSE 73
[2024-03-08] MEDS: Cholecalciferol (VIT D3) 25 MCG TABLET (1,000 UNITS) PO (08:47)
[2024-03-08] MEDS: Aspirin 81 MG TAB.CHEW PO ×2 (08:47→22:47)
[2024-03-08] MEDS: Ferrous Sulfate 325 MG Tablet PO (08:47)
[2024-03-08] MEDS: Senna/Docusate Sodium 1 Tablet 2 TABLET PO ×2 (08:47→22:46)
[2024-03-08] MEDS: Metoprolol Tartrate 25 MG Tablet 12.5 MG PO ×2 (08:47→22:48)
[2024-03-08] MEDS: Clopidogrel Bisulfate 75 MG Tablet PO (08:47)
[2024-03-08 11:10] VITALS: BP 83/53
[2024-03-08 13:41] VITALS: BP 100/63; PULSE 68; RESP 16; TEMP 36.2; O2SAT 98
[2024-03-08 22:48] VITALS: BP 102/69; PULSE 69
[2024-03-08] MEDS: Atorvastatin Calcium 40 MG Tablet PO (22:48)
[2024-03-09] MEDS: Alendronate Sodium 70 MG Tablet PO (04:39)
[2024-03-09] MEDS: Acetaminophen 500 MG Tablet 1000 MG PO ×3 (05:31→23:24)
[2024-03-09 07:17] LABS: Hematocrit 28.7 % (37-47); Hemoglobin 9.1 g/dL (12.0-15.0)
[2024-03-09 08:19] VITALS: BP 102/57; PULSE 76
[2024-03-09] MEDS: Ferrous Sulfate 325 MG Tablet PO (08:19)
[2024-03-09] MEDS: Metoprolol Tartrate 25 MG Tablet 12.5 MG PO ×2 (08:19→23:25)
[2024-03-09] MEDS: Clopidogrel Bisulfate 75 MG Tablet PO (08:19)
[2024-03-09] MEDS: Senna/Docusate Sodium 1 Tablet 2 TABLET PO ×2 (08:19→23:24)
[2024-03-09] MEDS: Cholecalciferol (VIT D3) 25 MCG TABLET (1,000 UNITS) PO (08:19)
[2024-03-09] MEDS: Aspirin 81 MG TAB.CHEW PO ×2 (08:19→23:24)
[2024-03-09] MEDS: Ensure Plus High Protein 120 ML LIQUID PO ×2 (12:22→17:27)
[2024-03-09 13:48] VITALS: BP 102/54; PULSE 71; RESP 18; TEMP 36.6; O2SAT 99
[2024-03-09] MEDS: Atorvastatin Calcium 40 MG Tablet PO (23:24)
[2024-03-09 23:25] VITALS: BP 97/63; PULSE 75
[2024-03-10] MEDS: Ensure Plus High Protein 120 ML LIQUID PO ×3 (05:10→16:25)
[2024-03-10] MEDS: Acetaminophen 500 MG Tablet 1000 MG PO ×3 (05:11→23:09)
[2024-03-10] MEDS: traMADol 50 MG Tablet PO (10:11)
[2024-03-10 11:13] VITALS: BP 112/72; PULSE 81; TEMP 36.6; O2SAT 95
[2024-03-10 11:15] VITALS: PULSE 81
[2024-03-10] MEDS: Aspirin 81 MG TAB.CHEW PO ×2 (11:15→23:01)
[2024-03-10] MEDS: Metoprolol Tartrate 25 MG Tablet 12.5 MG PO ×2 (11:15→23:02)
[2024-03-10] MEDS: Ferrous Sulfate 325 MG Tablet PO (11:15)
[2024-03-10] MEDS: Clopidogrel Bisulfate 75 MG Tablet PO (11:16)
[2024-03-10] MEDS: Cholecalciferol (VIT D3) 25 MCG TABLET (1,000 UNITS) PO (11:16)
[2024-03-10 23:02] VITALS: BP 110/70; PULSE 72
[2024-03-10] MEDS: Atorvastatin Calcium 40 MG Tablet PO (23:02)
[2024-03-11] MEDS: Acetaminophen 500 MG Tablet 1000 MG PO ×3 (05:48→21:00)
[2024-03-11] MEDS: Ensure Plus High Protein 120 ML LIQUID PO ×2 (05:48→16:51)
[2024-03-11 06:55] LABS: Cholesterol 112 mg/dL (200); High Density Lipoprotein 41 mg/dL; Iron 73 ug/dL (50-170); Triglycerides 107 mg/dL; Very Low Density Lipoprotein 21 mg/dL (5-40)
[2024-03-11 08:30] VITALS: BP 106/67; PULSE 81; RESP 18; TEMP 36.8; O2SAT 97
[2024-03-11 08:50] VITALS: PULSE 81
[2024-03-11] MEDS: Metoprolol Tartrate 25 MG Tablet 12.5 MG PO ×2 (08:50→21:00)
[2024-03-11] MEDS: Aspirin 81 MG TAB.CHEW PO ×2 (08:50→21:00)
[2024-03-11] MEDS: Clopidogrel Bisulfate 75 MG Tablet PO (08:50)
[2024-03-11] MEDS: Ferrous Sulfate 325 MG Tablet PO (08:50)
[2024-03-11] MEDS: Cholecalciferol (VIT D3) 25 MCG TABLET (1,000 UNITS) PO (08:50)
[2024-03-11 10:30] VITALS: BMI 20.5
[2024-03-11 21:00] VITALS: BP 104/62; PULSE 74
[2024-03-11] MEDS: Atorvastatin Calcium 40 MG Tablet PO (21:01)
[2024-03-11 21:09] VITALS: BP 104/62; PULSE 74
[2024-03-12] MEDS: Acetaminophen 500 MG Tablet 1000 MG PO ×3 (05:26→20:16)
[2024-03-12] MEDS: Ensure Plus High Protein 120 ML LIQUID PO ×3 (05:26→16:57)
[2024-03-12 08:18] VITALS: BP 103/65; PULSE 80; TEMP 36.3
[2024-03-12 08:21] VITALS: PULSE 80
[2024-03-12] MEDS: Ferrous Sulfate 325 MG Tablet PO (08:21)
[2024-03-12] MEDS: Aspirin 81 MG TAB.CHEW PO ×2 (08:21→20:17)
[2024-03-12] MEDS: Metoprolol Tartrate 25 MG Tablet 12.5 MG PO ×2 (08:21→20:18)
[2024-03-12] MEDS: Cholecalciferol (VIT D3) 25 MCG TABLET (1,000 UNITS) PO (08:23)
[2024-03-12] MEDS: Clopidogrel Bisulfate 75 MG Tablet PO (08:23)
[2024-03-12] MEDS: traMADol 50 MG Tablet PO ×2 (09:32→16:56)
[2024-03-12 20:18] VITALS: BP 107/64; PULSE 69
[2024-03-12] MEDS: Atorvastatin Calcium 40 MG Tablet PO (20:18)
[2024-03-13] MEDS: Acetaminophen 500 MG Tablet 1000 MG PO ×3 (06:28→21:00)
[2024-03-13] MEDS: Ensure Plus High Protein 120 ML LIQUID PO ×2 (06:28→13:24)
[2024-03-13 08:07] VITALS: BP 94/60; PULSE 65; RESP 16; TEMP 36.2; O2SAT 96
[2024-03-13 08:08] VITALS: BP 90/61; PULSE 69
[2024-03-13] MEDS: Aspirin 81 MG TAB.CHEW PO ×2 (08:12→21:00)
[2024-03-13] MEDS: Cholecalciferol (VIT D3) 25 MCG TABLET (1,000 UNITS) PO (08:12)
[2024-03-13] MEDS: Ferrous Sulfate 325 MG Tablet PO (08:12)
[2024-03-13] MEDS: Clopidogrel Bisulfate 75 MG Tablet PO (08:12)
[2024-03-13 08:39] VITALS: RESP 15
[2024-03-13 09:40] VITALS: PULSE 69
[2024-03-13] MEDS: Senna/Docusate Sodium 1 Tablet 2 TABLET PO (09:40)
[2024-03-13 20:57] VITALS: BP 109/66; PULSE 71
[2024-03-13 21:00] VITALS: BP 109/66; PULSE 71
[2024-03-13] MEDS: Metoprolol Tartrate 25 MG Tablet 12.5 MG PO (21:00)
[2024-03-13] MEDS: Atorvastatin Calcium 40 MG Tablet PO (21:01)
[2024-03-14] MEDS: Acetaminophen 500 MG Tablet 1000 MG PO ×3 (06:16→22:10)
[2024-03-14] MEDS: Senna/Docusate Sodium 1 Tablet 2 TABLET PO (06:16)
[2024-03-14 06:49] LABS: Absolute Lymphocyte Count 1.85 X10^3/uL (0.83-4.51); Absolute Neutrophil Count 3.7 X10^3/uL (2.0-7.7); Basophil# 0.04 X10^3/uL; Basophil% 0.6 % (0-1); Eosinophil# 0.09 X10^3/uL; Eosinophils% 1.4 % (0-5); Hematocrit 31.1 % (37-47); Hemoglobin 9.8 g/dL (12.0-15.0); Lymphocyte # 1.85 X10^3/ul (0.83-4.51); Lymphocyte % 29.7 % (19-41); Mean Corp Hgb Conc 31.5 g/dL (32-36); Mean Corpuscular Hgb 32.8 pg (27.0-32.0); Mean Platelet Vol. 9.3 fl (6.2-12.0); Monocyte# 0.47 X10^3/uL; Monocyte% 7.5 % (0-10); NRBC Flagged by Analyzer 0 % (0-5); Neutrophil # 3.72 X10^3/uL (2.7-7.7); Neutrophil % 59.8 % (47-70); Platelet Count 312 K/mm3 (150-450); RBC Distribution Width CV 16.6 % (11.6-14.6); Red Blood Count 2.99 M/mm3 (4.2-5.4); White Blood Count 6.2 K/mm3 (4.4-11.0)
[2024-03-14 06:57] LABS: Anion Gap 4 (5-15); BUN 17 mg/dL (7-18); BUN/Creat Ratio 26.2 RATIO (10-20); Calcium,Total 8.6 mg/dL (8.5-10.1); Chloride 112 mmol/L (98-107); Creatinine, Serum 0.65 mg/dL (0.55-1.02); EST Glomerular Filtration Rate 92 mL/min (>60); Est Glom Filt Rate - Afr Amer 111 mL/min (>60); Estimated Creatinine Clearance 43.27 ml/min; Glucose 91 mg/dL (74-106); Potassium 4.2 mmol/L (3.5-5.1); Sodium Level 142 mmol/L (136-145)
[2024-03-14 09:25] VITALS: BP 96/67; PULSE 78; RESP 17; TEMP 36.5; O2SAT 100
[2024-03-14] MEDS: Clopidogrel Bisulfate 75 MG Tablet PO (09:27)
[2024-03-14] MEDS: Ferrous Sulfate 325 MG Tablet PO (09:27)
[2024-03-14] MEDS: Aspirin 81 MG TAB.CHEW PO ×2 (09:27→22:10)
[2024-03-14] MEDS: Cholecalciferol (VIT D3) 25 MCG TABLET (1,000 UNITS) PO (09:28)
[2024-03-14 11:23] VITALS: BP 111/67; PULSE 90
[2024-03-14 11:26] VITALS: PULSE 90
[2024-03-14] MEDS: Metoprolol Tartrate 25 MG Tablet 12.5 MG PO ×2 (11:26→22:59)
[2024-03-14] MEDS: Tuberculin,Purif.prot.deriv. 50 TU/ML Vial 0.1 ML ID (13:24)
[2024-03-14] MEDS: Atorvastatin Calcium 40 MG Tablet PO (22:10)
[2024-03-14 22:59] VITALS: BP 102/64; PULSE 69
[2024-03-15] MEDS: Acetaminophen 500 MG Tablet 1000 MG PO ×3 (05:41→22:14)
[2024-03-15 08:47] VITALS: BP 101/59; PULSE 78; RESP 16; TEMP 36.6; O2SAT 97
[2024-03-15 08:49] VITALS: PULSE 78
[2024-03-15] MEDS: Metoprolol Tartrate 25 MG Tablet 12.5 MG PO ×2 (08:49→22:13)
[2024-03-15] MEDS: Clopidogrel Bisulfate 75 MG Tablet PO (08:50)
[2024-03-15] MEDS: Aspirin 81 MG TAB.CHEW PO ×2 (08:51→22:12)
[2024-03-15] MEDS: Cholecalciferol (VIT D3) 25 MCG TABLET (1,000 UNITS) PO (08:51)
[2024-03-15] MEDS: Ferrous Sulfate 325 MG Tablet PO (08:51)
[2024-03-15] MEDS: traMADol 50 MG Tablet PO (12:58)
[2024-03-15] MEDS: Ensure Plus High Protein 120 ML LIQUID PO (18:44)
[2024-03-15 22:13] VITALS: BP 107/67; PULSE 60
[2024-03-15] MEDS: Atorvastatin Calcium 40 MG Tablet PO (22:13)
[2024-03-16] MEDS: Alendronate Sodium 70 MG Tablet PO (05:54)
[2024-03-16] MEDS: Acetaminophen 500 MG Tablet 1000 MG PO ×3 (06:28→21:56)
[2024-03-16] MEDS: Ensure Plus High Protein 120 ML LIQUID PO ×2 (06:28→13:45)
[2024-03-16] MEDS: Aspirin 81 MG TAB.CHEW PO ×2 (08:43→21:57)
[2024-03-16 08:44] VITALS: PULSE 72
[2024-03-16] MEDS: Cholecalciferol (VIT D3) 25 MCG TABLET (1,000 UNITS) PO (08:44)
[2024-03-16] MEDS: Clopidogrel Bisulfate 75 MG Tablet PO (08:44)
[2024-03-16] MEDS: Ferrous Sulfate 325 MG Tablet PO (08:44)
[2024-03-16] MEDS: Metoprolol Tartrate 25 MG Tablet 12.5 MG PO ×2 (08:44→21:58)
[2024-03-16 15:39] VITALS: BP 108/72; PULSE 80; RESP 16; TEMP 36.6; O2SAT 95
[2024-03-16] MEDS: Atorvastatin Calcium 40 MG Tablet PO (21:56)
[2024-03-16 21:58] VITALS: BP 106/66; PULSE 67
[2024-03-16] MEDS: Senna/Docusate Sodium 1 Tablet 2 TABLET PO (22:04)
[2024-03-17] MEDS: Acetaminophen 500 MG Tablet 1000 MG PO ×3 (06:24→21:10)
[2024-03-17 08:25] VITALS: BP 112/64; PULSE 71
[2024-03-17] MEDS: Ferrous Sulfate 325 MG Tablet PO (08:25)
[2024-03-17] MEDS: Aspirin 81 MG TAB.CHEW PO ×2 (08:25→21:10)
[2024-03-17] MEDS: Metoprolol Tartrate 25 MG Tablet 12.5 MG PO ×2 (08:25→21:10)
[2024-03-17] MEDS: Cholecalciferol (VIT D3) 25 MCG TABLET (1,000 UNITS) PO (08:26)
[2024-03-17] MEDS: Clopidogrel Bisulfate 75 MG Tablet PO (08:26)
[2024-03-17 08:28] VITALS: BP 112/64; PULSE 71; O2SAT 95
[2024-03-17] MEDS: traMADol 50 MG Tablet PO (10:11)
[2024-03-17] MEDS: Ensure Plus High Protein 120 ML LIQUID PO ×2 (12:08→17:10)
[2024-03-17 13:25] VITALS: RESP 16
[2024-03-17 13:34] VITALS: BP 101/64; PULSE 64; RESP 16; TEMP 36.5; O2SAT 95
[2024-03-17 21:10] VITALS: BP 101/61; PULSE 71
[2024-03-17] MEDS: Atorvastatin Calcium 40 MG Tablet PO (21:10)
[2024-03-17 21:17] VITALS: BP 101/61; PULSE 71
[2024-03-18] MEDS: Acetaminophen 500 MG Tablet 1000 MG PO ×3 (05:43→23:36)
[2024-03-18 08:44] VITALS: BP 97/66; PULSE 72; RESP 16; TEMP 36.6; O2SAT 99
[2024-03-18 08:45] VITALS: BP 91/67
[2024-03-18] MEDS: Ferrous Sulfate 325 MG Tablet PO (08:46)
[2024-03-18 08:47] VITALS: PULSE 72
[2024-03-18] MEDS: Cholecalciferol (VIT D3) 25 MCG TABLET (1,000 UNITS) PO (08:47)
[2024-03-18] MEDS: Clopidogrel Bisulfate 75 MG Tablet PO (08:47)
[2024-03-18] MEDS: Aspirin 81 MG TAB.CHEW PO ×2 (08:47→23:37)
[2024-03-18] MEDS: Metoprolol Tartrate 25 MG Tablet 12.5 MG PO ×2 (08:47→23:37)
[2024-03-18] MEDS: traMADol 50 MG Tablet PO (08:49)
[2024-03-18] MEDS: Ensure Plus High Protein 120 ML LIQUID PO ×2 (13:06→16:50)
[2024-03-18 18:00] VITALS: BMI 20.5
[2024-03-18 23:37] VITALS: BP 107/64; PULSE 68
[2024-03-18] MEDS: Atorvastatin Calcium 40 MG Tablet PO (23:37)
[2024-03-18 23:40] VITALS: BP 107/64; PULSE 68; RESP 16
[2024-03-19] MEDS: Acetaminophen 500 MG Tablet 1000 MG PO ×3 (06:08→23:37)
[2024-03-19] MEDS: Clopidogrel Bisulfate 75 MG Tablet PO (08:16)
[2024-03-19 08:17] VITALS: BP 105/71; PULSE 71
[2024-03-19] MEDS: Aspirin 81 MG TAB.CHEW PO ×2 (08:17→23:36)
[2024-03-19] MEDS: Metoprolol Tartrate 25 MG Tablet 12.5 MG PO ×2 (08:17→23:38)
[2024-03-19] MEDS: Cholecalciferol (VIT D3) 25 MCG TABLET (1,000 UNITS) PO (08:17)
[2024-03-19] MEDS: Ferrous Sulfate 325 MG Tablet PO (08:18)
[2024-03-19] MEDS: traMADol 50 MG Tablet PO (08:21)
[2024-03-19 08:40] VITALS: BP 105/71; PULSE 71; RESP 17; TEMP 36.2; O2SAT 95
[2024-03-19] MEDS: Ensure Plus High Protein 120 ML LIQUID PO (11:45)
[2024-03-19 23:38] VITALS: BP 133/72; PULSE 71
[2024-03-19] MEDS: Atorvastatin Calcium 40 MG Tablet PO (23:41)
[2024-03-20] MEDS: Acetaminophen 500 MG Tablet 1000 MG PO ×3 (06:28→22:51)
[2024-03-20] MEDS: Ensure Plus High Protein 120 ML LIQUID PO ×2 (06:29→14:14)
[2024-03-20] MEDS: Ferrous Sulfate 325 MG Tablet PO (08:18)
[2024-03-20] MEDS: Aspirin 81 MG TAB.CHEW PO ×2 (08:18→22:51)
[2024-03-20 08:19] VITALS: BP 101/67; PULSE 79
[2024-03-20] MEDS: Clopidogrel Bisulfate 75 MG Tablet PO (08:19)
[2024-03-20] MEDS: Cholecalciferol (VIT D3) 25 MCG TABLET (1,000 UNITS) PO (08:19)
[2024-03-20] MEDS: Metoprolol Tartrate 25 MG Tablet 12.5 MG PO ×2 (08:19→22:52)
[2024-03-20] MEDS: Senna/Docusate Sodium 1 Tablet 2 TABLET PO ×2 (08:23→22:52)
[2024-03-20 15:29] VITALS: BP 101/59; PULSE 74; RESP 20; TEMP 37.4; O2SAT 100
[2024-03-20] MEDS: Atorvastatin Calcium 40 MG Tablet PO (22:51)
[2024-03-20 22:52] VITALS: BP 104/67; PULSE 78
[2024-03-21 06:10] LABS: Absolute Lymphocyte Count 1.97 X10^3/uL (0.83-4.51); Absolute Neutrophil Count 3.7 X10^3/uL (2.0-7.7); Basophil# 0.03 X10^3/uL; Basophil% 0.5 % (0-1); Eosinophil# 0.09 X10^3/uL; Eosinophils% 1.4 % (0-5); Hematocrit 33.7 % (37-47); Hemoglobin 10.8 g/dL (12.0-15.0); Lymphocyte # 1.97 X10^3/ul (0.83-4.51); Lymphocyte % 31.3 % (19-41); Mean Corpuscular Volume 103.1 fL (81-99); Mean Platelet Vol. 9.1 fl (6.2-12.0); Monocyte# 0.47 X10^3/uL; Monocyte% 7.5 % (0-10); NRBC Flagged by Analyzer 0 % (0-5); Neutrophil # 3.68 X10^3/uL (2.7-7.7); Neutrophil % 58.5 % (47-70); Platelet Count 284 K/mm3 (150-450); RBC Distribution Width CV 16.2 % (11.6-14.6); RBC Distribution Width SD 60.3 fl (35.1-43.9); Red Blood Count 3.27 M/mm3 (4.2-5.4); White Blood Count 6.3 K/mm3 (4.4-11.0)
[2024-03-21] MEDS: Ensure Plus High Protein 120 ML LIQUID PO ×3 (06:15→16:25)
[2024-03-21] MEDS: Acetaminophen 500 MG Tablet 1000 MG PO ×3 (06:15→22:51)
[2024-03-21 06:30] LABS: Anion Gap 5 (5-15); BUN 18 mg/dL (7-18); BUN/Creat Ratio 28.2 RATIO (10-20); Calcium,Total 8.5 mg/dL (8.5-10.1); Chloride 113 mmol/L (98-107); Creatinine, Serum 0.64 mg/dL (0.55-1.02); EST Glomerular Filtration Rate 94 mL/min (>60); Est Glom Filt Rate - Afr Amer 114 mL/min (>60); Estimated Creatinine Clearance 43.34 ml/min; Glucose 98 mg/dL (74-106); Potassium 3.9 mmol/L (3.5-5.1); Sodium Level 141 mmol/L (136-145)
[2024-03-21 08:36] VITALS: BP 100/66; PULSE 77; RESP 18; TEMP 36.9
[2024-03-21] MEDS: Ferrous Sulfate 325 MG Tablet PO (08:44)
[2024-03-21 08:45] VITALS: PULSE 77
[2024-03-21] MEDS: Aspirin 81 MG TAB.CHEW PO ×2 (08:45→22:51)
[2024-03-21] MEDS: Metoprolol Tartrate 25 MG Tablet 12.5 MG PO ×2 (08:45→22:52)
[2024-03-21] MEDS: Cholecalciferol (VIT D3) 25 MCG TABLET (1,000 UNITS) PO (08:46)
[2024-03-21] MEDS: Clopidogrel Bisulfate 75 MG Tablet PO (08:46)
[2024-03-21] MEDS: Atorvastatin Calcium 40 MG Tablet PO (22:51)
[2024-03-21 22:52] VITALS: BP 128/82; PULSE 91
[2024-03-22] MEDS: Acetaminophen 500 MG Tablet 1000 MG PO (05:11)
[2024-03-22 08:06] VITALS: BP 112/73; PULSE 74; RESP 16; TEMP 36.6; O2SAT 96
[2024-03-22] MEDS: Aspirin 81 MG TAB.CHEW PO (08:09)
[2024-03-22] MEDS: Ferrous Sulfate 325 MG Tablet PO (08:09)
[2024-03-22 08:10] VITALS: PULSE 74
[2024-03-22] MEDS: Cholecalciferol (VIT D3) 25 MCG TABLET (1,000 UNITS) PO (08:10)
[2024-03-22] MEDS: Metoprolol Tartrate 25 MG Tablet 12.5 MG PO (08:10)
[2024-03-22] MEDS: Clopidogrel Bisulfate 75 MG Tablet PO (08:10)
== END 2024-03-22 11:00 | disposition home health service (06) | DRG 560 ==
PROVIDERS: Admitting Provider Family Medicine Geriatric Medicine; PCP Internal Medicine; Referring Provider Family Medicine Geriatric Medicine; Visit Provider Family Medicine Geriatric Medicine
DX: S72.001D Fracture of unspecified part of neck of right femur, subsequent encounter for closed fracture with routine healing (principal); D62 Acute posthemorrhagic anemia; I71.21 Aneurysm of the ascending aorta, without rupture; I10 Essential (primary) hypertension; E55.9 Vitamin D deficiency, unspecified; E61.1 Iron deficiency; F17.200 Nicotine dependence, unspecified, uncomplicated; I25.10 Atherosclerotic heart disease of native coronary artery without angina pectoris; E78.5 Hyperlipidemia, unspecified; W19.XXXD Unspecified fall, subsequent encounter; Z79.899 Other long term (current) drug therapy; Z79.02 Long term (current) use of antithrombotics/antiplatelets; Z79.82 Long term (current) use of aspirin; M81.8 Other osteoporosis without current pathological fracture; Z90.49 Acquired absence of other specified parts of digestive tract
CPT/HCPCS: 36415; 80048; 80061; 83540; 85014; 85018; 85025; 87811; 94667; 94668; 97110; 97116; 97162; 97166; 97530; 97535; 97802